=== PATIENT | female | born 1970 | race Caucasian/White ===

== ENCOUNTER 2020-04-12 11:58 | Emergency (ER) | payer MEDICAID ==
[~2020-04-12] VITALS: Ht 165.1 cm; Wt 127.0 kg
[2020-04-12 12:07] VITALS: BP 138/117
[2020-04-12] MEDS ORDERED: PRED10TA PO (12:50)
[2020-04-12] MEDS ORDERED: predniSONE 20 mg tablet PO ONE (12:50)
== END 2020-04-12 13:00 | disposition home or self-care (01) ==
LOC: ER 11:59
DX: L23.9 Allergic contact dermatitis, unspecified cause (principal); F17.200 Nicotine dependence, unspecified, uncomplicated; Z88.6 Allergy status to analgesic agent; Z79.899 Other long term (current) drug therapy
CPT/HCPCS: 99283; J7512

== ENCOUNTER 2021-10-04 14:02 | Emergency (ER) | payer MEDICAID ==
[~2021-10-04] VITALS: Ht 165.1 cm; Wt 109.1 kg
[~2021-10-04 14:02] MED LIST: PRED10TA PO
[2021-10-04] MEDS: ondansetron 4mg rapidly disintigrating tab PO ONE (14:28)
--- NOTE | 2021-10-04 14:46 | NUR ---
Bedside blood glucose 434mg/dl- critical high. notified.
[2021-10-04] MEDS ORDERED: normal saline 1000ml 1,000 ML IV ONE (14:55)
[2021-10-04] MEDS: normal saline 1000ml 1,000 ML IV ONE (15:21)
[2021-10-04 15:22] LABS: BASOPHILS % (AUTO) 0.3 % (0-1); EOSINOPHILS # (AUTO) 0.1 X10'3 (0-0.9); EOSINOPHILS % (AUTO) 0.6 % (0-6); HEMATOCRIT 42.5 % (35.0-45.0); HEMOGLOBIN 14.7 g/dl (12.0-16.0); LYMPHOCYTES # (AUTO) 2.3 X10'3 (1.1-4.8); LYMPHOCYTES % (AUTO) 23.5 % (21-51); MEAN CORPUSCULAR HEMOGLOBIN 29.7 PG (27.0-31.0); MEAN CORPUSCULAR HGB CONC 34.6 g/dL (33.0-36.5); MEAN CORPUSCULAR VOLUME 85.9 FL (78-98); MEAN PLATELET VOLUME 7.8 FL (7.4-10.4); MONOCYTES # (AUTO) 0.6 X10'3 (0-0.9); MONOCYTES % (AUTO) 5.7 % (2-12); NEUTROPHILS # (AUTO) 6.8 X10'3 (1.8-7.7); NEUTROPHILS % (AUTO) 69.9 % (42-75); PLATELET COUNT 356 X10'3 (140-440); RED BLOOD COUNT 4.94 X10'6 (4.20-5.60); RED CELL DISTRIBUTION WIDTH 13.6 % (11.5-14.5); WHITE BLOOD COUNT 9.7 X10'3 (4.5-11.0)
[2021-10-04] MEDS: predniSONE 20 mg tablet PO ONE (15:40)
[2021-10-04] MEDS: ipratropium/albuterol 3ml nebule NEB ONE (15:40)
[2021-10-04 15:43] LABS: ALANINE AMINOTRANSFERASE 15 U/L (12-78); ALBUMIN/GLOBULIN RATIO 0.6 (1.1-1.5); ALKALINE PHOSPHATASE 78 IU/L (46-116); ANION GAP 18 (8-16); ASPARTATE AMINO TRANSFERASE 8 U/L (10-37); BILIRUBIN,TOTAL 0.3 MG/DL (0.1-1.0); BLOOD UREA NITROGEN 21 MG/DL (7-18); BUN/CREATININE RATIO 16.9 (6.6-38.0); CALCIUM 9.5 MG/DL (8.5-10.1); CHLORIDE 100 MMOL/L (99-107); CREATININE 1.24 MG/DL (0.40-0.90); GLUCOSE 418 MG/DL (70-104); POTASSIUM 3.2 MMOL/L (3.5-5.1); SODIUM 140 MMOL/L (135-145); TOTAL PROTEIN 7.7 G/DL (6.4-8.2); eGFR 46 ML/MIN
[2021-10-04 15:47] LABS: CLARITY,URINE SLIGHTLY CLOUDY (Clear); COLOR,URINE YELLOW (Yellow); GLUCOSE, URINE >=1000 mg/dl (Neg); KETONES,URINE NEGATIVE (Neg); LEUKOCYTE ESTERASE ,URINE NEGATIVE (Neg); NITRITES, URINE NEGATIVE (Neg); OCCULT BLOOD,URINE TRACE-INTACT (Neg); PH,URINE 7.5 (4.8-8.0); PROTEIN,URINE NEGATIVE (Neg)
[2021-10-04 15:49] LABS: LIPASE 261 U/L (73-393)
[2021-10-04 15:54] LABS: UA COLLECTION TYPE NON-SPECIFIED
[2021-10-04 15:55] LABS: SQUAMOUS EPITHELIAL CELL,UR MODERATE /LPF (FEW)
[2021-10-04 15:56] LABS: BACTERIA,URINE 1+ /HPF (Neg); RBC,URINE 0-2 /HPF (0-2); WBC,URINE 0-4 /HPF (0-4)
[2021-10-04] MEDS: potassium Cl 10 mEq/100mL bag IV ONE (16:36)
[2021-10-04] MEDS: potassium Cl 20 mEq SR tablet PO ONE (16:36)
[2021-10-04] MEDS: LORazepam 2 mg/ml vial IV ONE (16:49)
--- NOTE | 2021-10-04 17:17 | NUR ---
RT at bedside to draw ABG.
--- NOTE | 2021-10-04 17:29 | NUR ---
Potassium 10meq still infusing- pt bending arm when moving around or up to commode and pump starts alarming.
--- NOTE | 2021-10-04 17:31 | NUR ---
Pt up to bedside commode. assisting at bedside.
[2021-10-04 17:34] LABS: ABG OXYGEN SATURATION 98.1 % (94-97); ABG PCO2 (T) 20.8 mmHg (32.0-45.0); ABG PO2 (T) 103.9 mmHg (75.0-100.0); ALLEN'S TEST POSITIVE; FCOHb 0.3 % (0.0-3.9); FLOW 2 L/min; FMetHb 0.2 % (0.0-1.5); FO2Hb 97.6 % (94-97); TOTAL HEMOGLOBIN 14.4 G/dl (12.0-16.0)
[2021-10-04] MEDS ORDERED: ONDA4TAB12 PO (17:47)
[2021-10-04] MEDS: diphenhydrAMINE 50 mg/ml inj IV ONE (17:57)
[2021-10-04] MEDS: proCHLORperazine 10 MG/2 ml inj IV ONE (17:57)
[2021-10-04 18:27] VITALS: BP 157/80
== END 2021-10-04 18:58 | disposition home or self-care (01) ==
LOC: ER 14:03
DX: B34.9 Viral infection, unspecified (principal); E11.65 Type 2 diabetes mellitus with hyperglycemia; R73.9 Hyperglycemia, unspecified; E87.6 Hypokalemia; I10 Essential (primary) hypertension; Z88.6 Allergy status to analgesic agent; Z79.899 Other long term (current) drug therapy; Z20.822 Contact with and (suspected) exposure to COVID-19
CPT/HCPCS: 36415; 36600; 71045; 80053; 81001; 82803; 82948; 83690; 83880; 85018; 85025; 87502; 87503; 87635; 93005; 94640; 96361; 96374; 96375; 99285; C9803; J0780; J1200; J2060; J3480; J7030; J7512; 94760

== ENCOUNTER 2022-02-19 14:42 | Inpatient (IN) | payer MEDICAID ==
[~2022-02-19] VITALS: Ht 165.1 cm; Wt 107.8 kg
[~2022-02-19 14:42] MED LIST changes: +ONDA4TAB12 PO
[2022-02-19 15:55] LABS: BASOPHILS # (AUTO) 0.1 X10'3 (0-0.2); BASOPHILS % (AUTO) 0.7 % (0-1); EOSINOPHILS % (AUTO) 0 % (0-6); HEMATOCRIT 49.2 % (35.0-45.0); HEMOGLOBIN 16.7 g/dl (12.0-16.0); LYMPHOCYTES # (AUTO) 4.4 X10'3 (1.1-4.8); LYMPHOCYTES % (AUTO) 26.1 % (21-51); MEAN CORPUSCULAR VOLUME 88.4 FL (78-98); MEAN PLATELET VOLUME 7.6 FL (7.4-10.4); MONOCYTES # (AUTO) 0.8 X10'3 (0-0.9); MONOCYTES % (AUTO) 4.8 % (2-12); NEUTROPHILS # (AUTO) 11.6 X10'3 (1.8-7.7); NEUTROPHILS % (AUTO) 68.4 % (42-75); PLATELET COUNT 441 X10'3 (140-440); RED BLOOD COUNT 5.57 X10'6 (4.20-5.60); RED CELL DISTRIBUTION WIDTH 14.6 % (11.5-14.5); WHITE BLOOD COUNT 16.9 X10'3 (4.5-11.0)
[2022-02-19 16:04] LABS: ALANINE AMINOTRANSFERASE 17 U/L (12-78); ALBUMIN 3.8 G/DL (3.4-5.0); ALBUMIN/GLOBULIN RATIO 0.8 (1.1-1.5); ALKALINE PHOSPHATASE 55 IU/L (46-116); ANION GAP 15 (8-16); ASPARTATE AMINO TRANSFERASE 14 U/L (10-37); BILIRUBIN,TOTAL 0.7 MG/DL (0.1-1.0); BLOOD UREA NITROGEN 21 MG/DL (7-18); BUN/CREATININE RATIO 15.1 (6.6-38.0); CALCIUM 9.5 MG/DL (8.5-10.1); CHLORIDE 100 MMOL/L (99-107); CREATININE 1.39 MG/DL (0.40-0.90); GLUCOSE 180 MG/DL (70-104); LIPASE 137 U/L (73-393); SODIUM 140 MMOL/L (135-145); TOTAL CARBON DIOXIDE 24.7 MMOL/L (24-32); TOTAL PROTEIN 8.4 G/DL (6.4-8.2); eGFR 40 ML/MIN
[2022-02-19 16:08] LABS: POTASSIUM 2.9 MMOL/L (3.5-5.1)
--- NOTE | 2022-02-19 16:46 | NUR ---
patient reporting chest pain at this time
--- NOTE | 2022-02-19 17:48 | NUR ---
ER MD advised of patient desating and HR dropping intermittently. patient is still waiting to be seen, repeat EKG ordered
--- NOTE | 2022-02-19 18:55 | NUR ---
CHANGE OF SHIFT. PRIOR RN MENTIONED PT COMPLAINED OF CP. PT AFFIRMED CP. I SPOKE TO DR VICKERS AND RECIEVED VERBAL OK TO ADD TROPONIN LABS. ORDERS PLACED.
--- NOTE | 2022-02-19 19:05 | NUR ---
DR VICKERS IN ROOM EXAMINING PT. AT BEDSIDE.
[2022-02-19] MEDS ORDERED: albuterol 2.5 MG/3 ML nebule NEB ONE (19:10)
[2022-02-19] MEDS ORDERED: morphine 4 MG/ML inj SYRINge IV ONE (19:10)
[2022-02-19] MEDS ORDERED: ondansetron/PF 4mg/2ml inj IV ONE (19:10)
[2022-02-19] MEDS ORDERED: famotidine/PF 10 mg/ml inj IV ONE (19:10)
[2022-02-19] MEDS ORDERED: ringers solution, lacted 1,000 ML IV ONE (19:15)
[2022-02-19] MEDS ORDERED: potassium Cl 10 mEq/100mL bag IV ONE (19:15)
[2022-02-19] MEDS ORDERED: methylPREDNISolone sod succ 125mg/2ml vial IV ONE (19:20)
--- NOTE | 2022-02-19 19:36 | NUR ---
PT IN CT
[2022-02-19 19:39] LABS: URINE HCG NEGATIVE (NEG)
[2022-02-19 20:09] LABS: CLARITY,URINE SLIGHTLY CLOUDY (Clear); GLUCOSE, URINE NEGATIVE (Neg); KETONES,URINE TRACE mg/dl (Neg); LEUKOCYTE ESTERASE ,URINE SMALL (Neg); NITRITES, URINE POSITIVE (Neg); OCCULT BLOOD,URINE NEGATIVE (Neg); PH,URINE 8.5 (4.8-8.0); PROTEIN,URINE 100 mg/dl (Neg)
[2022-02-19 20:16] LABS: COLOR,URINE AMBER (Yellow); UA COLLECTION TYPE OTHER
[2022-02-19 20:20] LABS: BACTERIA,URINE 4+ /HPF (Neg); MUCUS STRANDS NONE SEEN /LPF (Neg); RBC,URINE NONE SEEN /HPF (0-2); SQUAMOUS EPITHELIAL CELL,UR MANY /LPF (FEW); WBC,URINE 30-50 /HPF (0-4)
[2022-02-19] MEDS ORDERED: CefTRIAXone/D5W-Rocephin 1gm 50 ML IV ONE (20:30)
--- NOTE | 2022-02-19 20:30 | NUR ---
PT REPORTS NOT MUCH IMPROVEMENT OVERALL. SPOKE TO DR VICKERS CONCERNING PT'S URINE RESULTS. HE WILL PUT IN ORDERS FOR ANTIBIOTICS.
[2022-02-19] MEDS ORDERED: insulin Lispro (HumaLOG) vial - multi-dose SQ SCH (22:20)
[2022-02-19] MEDS ORDERED: dextrose 50%-water 50ml dispensing syringe IV PRN ×2 (22:20)
[2022-02-19] MEDS ORDERED: DEXTROSE 15 GM of carb/4 tabs (each vial/BOTTLE has 4 tablets) PO PRN ×2 (22:20)
[2022-02-19] MEDS ORDERED: MESSAGE TO PHARMACY PO ONE (22:20)
[2022-02-19] MEDS ORDERED: glucagon, human recombinant 1mg kit SUBCUT PRN (22:20)
[2022-02-19 22:34] LABS: HEMOGLOBIN A1C 5.9 % (4.5-6.2)
--- NOTE | 2022-02-19 22:48 | NUR ---
PT SLEEPING ON HER SIDE.
[2022-02-19 22:53] LABS: URINE AMPHETAMINE SCREEN NEGATIVE (Neg); URINE BARBITUATE SCREEN NEGATIVE (Neg); URINE BENZODIAZEPINES SCREEN NEGATIVE (Neg); URINE CANNABINOID SCREEN POSITIVE (Neg); URINE COCAINE SCREEN NEGATIVE (Neg); URINE METHADONE SCREEN NEGATIVE (Neg); URINE OPIATE SCREEN POSITIVE (Neg); URINE PHENCYCLIDINE SCREEN NEGATIVE (Neg)
--- NOTE | 2022-02-19 23:10 | NUR ---
PT ON A [facility] GOWN. CALL RIGHT WITHIN REACH.
[2022-02-20] MEDS ORDERED: bisacodyl 10mg suppository rectal RC PRN (00:35)
[2022-02-20] MEDS ORDERED: acetaminophen 325mg tablet PO PRN ×2 (00:35)
[2022-02-20] MEDS ORDERED: metoclopramide 5 mg/ml inj IV PRN (00:35)
[2022-02-20] MEDS ORDERED: ondansetron/PF 4mg/2ml inj IV PRN (00:35)
[2022-02-20] MEDS ORDERED: HYDROmorphone inj. 0.5 MG/0.5 ML DISP.SYRIN IV PRN (00:35)
[2022-02-20] MEDS ORDERED: mag hydrox/Alum hydrox/simeth 30ml oral suspension PO PRN (00:35)
[2022-02-20] MEDS ORDERED: morphine 2 MG/ML inj. syringe IV PRN ×2 (00:35)
[2022-02-20] MEDS ORDERED: magnesium hydroxide 30ml (MOM) UD suspension PO PRN (00:35)
[2022-02-20] MEDS ORDERED: acetaminophen 650mg rectal suppository RC PRN (00:35)
[2022-02-20] MEDS ORDERED: HYDROcodone/acetaminophen 10/325mg tab PO PRN (00:35)
[2022-02-20] MEDS ORDERED: diphenhydrAMINE 50 mg/ml inj IV PRN (00:35)
[2022-02-20] MEDS ORDERED: diphenhydrAMINE 25mg capsule PO PRN (00:35)
[2022-02-20] MEDS ORDERED: potassium Cl 20 mEq SR tablet PO PRN (00:50)
[2022-02-20] MEDS ORDERED: LORazepam 2 mg/ml vial IV PRN (00:50)
[2022-02-20] MEDS ORDERED: potassium CL 10mEq/100ml bag 100 ML IV PRN ×2 (01:00)
[2022-02-20] MEDS: potassium Cl 20mEq in NS 1,000 ML IV SCH ×3 (02:20→21:20)
[2022-02-20] MEDS ORDERED: TOPI50TA24 PO (02:22)
[2022-02-20] MEDS ORDERED: PIOG15TA8 PO (02:23)
[2022-02-20] MEDS ORDERED: METF-438 PO (02:24)
--- NOTE | 2022-02-20 02:30 | NUR ---
Patient in room PCU 3016. I have received report from Ceci COVARRUBIAS RN and had the opportunity to ask questions and assume patient care.
--- NOTE | 2022-02-20 02:50 | NUR ---
Pt arrived fr/ED via [facility]redis [facility] w/standby assist to bed. Oriented to room, surroundings, and POC. Tele monitor applied, NSR @ 60/min. noted.
[2022-02-20 03:00] VITALS: BP 109/71
[2022-02-20 03:31] LABS: APTT 26 SECONDS (22-32); D-DIMER 0.27 MG/L FEU (0-0.50)
[2022-02-20 03:40] LABS: CREATINE KINASE 140 U/L (26-192); ETHANOL < 0.010 GM/DL (0.0-0.010); MAGNESIUM 1.6 MG/DL (1.5-2.4)
[2022-02-20 06:00] VITALS: BP 110/67
--- NOTE | 2022-02-20 06:50 | NUR ---
Patient in room PCU 3016. I have received report from MAYTE LEDESMA, and had the opportunity to ask questions and assume patient care.
[2022-02-20] MEDS: ondansetron 4mg rapidly disintigrating tab PO PRN ×2 (07:14→15:55)
--- NOTE | 2022-02-20 07:21 | NUR ---
Problems reprioritized. Patient report given, questions answered & plan of care reviewed with Kassi HU.
[2022-02-20 07:42] LABS: ALANINE AMINOTRANSFERASE 14 U/L (12-78); ALBUMIN 3.3 G/DL (3.4-5.0); ALBUMIN/GLOBULIN RATIO 0.9 (1.1-1.5); ALKALINE PHOSPHATASE 47 IU/L (46-116); ANION GAP 12 (8-16); ASPARTATE AMINO TRANSFERASE 17 U/L (10-37); BILIRUBIN,TOTAL 0.5 MG/DL (0.1-1.0); BLOOD UREA NITROGEN 25 MG/DL (7-18); CALCIUM 8.5 MG/DL (8.5-10.1); CHLORIDE 105 MMOL/L (99-107); CREATININE 1.19 MG/DL (0.40-0.90); GLUCOSE 179 MG/DL (70-104); SODIUM 141 MMOL/L (135-145); TOTAL CARBON DIOXIDE 24.3 MMOL/L (24-32); eGFR 48 ML/MIN
[2022-02-20 07:44] LABS: POTASSIUM 2.6 MMOL/L (3.5-5.1)
--- NOTE | 2022-02-20 07:48 | NUR ---
PAGE SENT PAGER ID: [phone] MESSAGE: [id number], SERGEY PARKER, CRITICAL LAB - K 2.6 THANK YOU, ADRIAN [phone]
[2022-02-20] MEDS: K and/or MAG REPLACEMENT MC SCH ×2 (08:00→20:00)
[2022-02-20] MEDS: potassium Cl 20 mEq SR tablet PO PRN ×2 (08:26→20:39)
[2022-02-20] MEDS: docusate sod 100mg capsule PO SCH ×2 (08:26→20:00)
[2022-02-20] MEDS: heparin, porcine 5000 units/ml vial SQ SCH ×2 (08:27→20:35)
[2022-02-20] MEDS: pantoprazole 40MG/NS 100ML BAG 100 ML IV SCH ×2 (08:36→20:35)
[2022-02-20] MEDS: HYDROcodone/acetaminophen 5mg/325mg tablet PO PRN ×2 (10:24→15:55)
[2022-02-20 11:00] VITALS: BP 107/66
--- NOTE | 2022-02-20 13:52 | NUR ---
PAGE SENT PAGER ID: [phone] MESSAGE: [id number], SERGEY PARKER, PT C/O JIA PRADHAN. TAKES EXECEDRIN PLUS AT HOME - [facility]CO HELPFUL, IMITREX? PT ALSO HAS DIAGNOSIS OF BIPOLAR AND TAKES GEODON AND TOPAMAX. THANK YOU, ADRIAN, X [phone]
[2022-02-20 15:00] VITALS: BP 111/86
[2022-02-20 18:00] VITALS: BP 104/57
--- NOTE | 2022-02-20 18:23 | NUR ---
Problems reprioritized. Patient report given, questions answered & plan of care reviewed with MAYTE REYES.
[2022-02-20] MEDS ORDERED: HALO2ORA3 PO (18:50)
[2022-02-20] MEDS ORDERED: MELO-102 PO (18:50)
[2022-02-20] MEDS ORDERED: ZIPR80CA10 PO (18:50)
[2022-02-20] MEDS ORDERED: TRAZ-256 PO (18:50)
[2022-02-20] MEDS ORDERED: ZIPR40CA14 PO (18:50)
[2022-02-20] MEDS ORDERED: ASPI-144 PO (18:50)
[2022-02-20] MEDS ORDERED: DIVA500T9 PO (18:50)
[2022-02-20] MEDS ORDERED: ERGO500056 PO (18:50)
--- NOTE | 2022-02-20 19:00 | NUR ---
Patient in room PCU 3016. I have received report from Kassi and had the opportunity to ask questions and assume patient care.
[2022-02-20] MEDS ORDERED: insulin glargine (Lantus) pen - multi-dose SQ SCH (21:00)
[2022-02-20] MEDS ORDERED: temazepam 15mg capsule PO PRN (21:00)
[2022-02-20] MEDS ORDERED: CefTRIAXone/D5W-Rocephin 1gm 50 ML IV SCH (21:00)
[2022-02-20 22:00] VITALS: BP 113/68
[2022-02-21] MEDS: potassium Cl 20 mEq SR tablet PO PRN (00:41)
[2022-02-21 02:00] VITALS: BP 108/65
[2022-02-21] MEDS: potassium Cl 20mEq in NS 1,000 ML IV SCH ×2 (06:35→11:30)
--- NOTE | 2022-02-21 06:57 | NUR ---
Patient in room PCU 3016. I have received report from Paco HU and had the opportunity to ask questions and assume patient care.
[2022-02-21 07:05] VITALS: BP 122/59
--- NOTE | 2022-02-21 07:10 | NUR ---
Problems reprioritized. Patient report given, questions answered & plan of care reviewed with Raúl.
[2022-02-21 07:24] LABS: BASOPHILS % (AUTO) 0.7 % (0-1); EOSINOPHILS % (AUTO) 0.3 % (0-6); HEMATOCRIT 40.1 % (35.0-45.0); HEMOGLOBIN 13.6 g/dl (12.0-16.0); LYMPHOCYTES # (AUTO) 2.8 X10'3 (1.1-4.8); LYMPHOCYTES % (AUTO) 42.2 % (21-51); MEAN CORPUSCULAR HEMOGLOBIN 30.4 PG (27.0-31.0); MEAN CORPUSCULAR HGB CONC 33.9 g/dL (33.0-36.5); MEAN CORPUSCULAR VOLUME 89.5 FL (78-98); MEAN PLATELET VOLUME 8.1 FL (7.4-10.4); MONOCYTES # (AUTO) 0.4 X10'3 (0-0.9); MONOCYTES % (AUTO) 5.7 % (2-12); NEUTROPHILS # (AUTO) 3.4 X10'3 (1.8-7.7); NEUTROPHILS % (AUTO) 51.1 % (42-75); PLATELET COUNT 233 X10'3 (140-440); RED BLOOD COUNT 4.48 X10'6 (4.20-5.60); RED CELL DISTRIBUTION WIDTH 14.3 % (11.5-14.5); WHITE BLOOD COUNT 6.7 X10'3 (4.5-11.0)
[2022-02-21 07:47] LABS: ALANINE AMINOTRANSFERASE 11 U/L (12-78); ALBUMIN 2.8 G/DL (3.4-5.0); ALBUMIN/GLOBULIN RATIO 0.8 (1.1-1.5); ALKALINE PHOSPHATASE 42 IU/L (46-116); ANION GAP 9 (8-16); ASPARTATE AMINO TRANSFERASE 19 U/L (10-37); BILIRUBIN,TOTAL 0.4 MG/DL (0.1-1.0); BLOOD UREA NITROGEN 16 MG/DL (7-18); BUN/CREATININE RATIO 16.7 (6.6-38.0); CHLORIDE 115 MMOL/L (99-107); CHOL/HDL RATIO 5.9 (0.00-4.99); CHOLESTEROL 165 MG/DL (0-200); CREATININE 0.96 MG/DL (0.40-0.90); GLUCOSE 136 MG/DL (70-104); HDL CHOLESTEROL 28 MG/DL (35-60); LDL CHOLESTEROL 91 MG/DL (50-100); POTASSIUM 4.1 MMOL/L (3.5-5.1); SODIUM 144 MMOL/L (135-145); TOTAL CARBON DIOXIDE 20.4 MMOL/L (24-32); TOTAL PROTEIN 6.1 G/DL (6.4-8.2); TRIGLYCERIDES 248 MG/DL (20-135); eGFR 62 ML/MIN
[2022-02-21] MEDS: K and/or MAG REPLACEMENT MC SCH (08:00)
[2022-02-21] MEDS: docusate sod 100mg capsule PO SCH (08:16)
[2022-02-21] MEDS: pantoprazole 40MG/NS 100ML BAG 100 ML IV SCH (08:16)
[2022-02-21] MEDS: heparin, porcine 5000 units/ml vial SQ SCH (08:18)
[2022-02-21] MEDS ORDERED: CAFFEINE PO PRN (10:35)
[2022-02-21] MEDS ORDERED: ACETAMINOPHEN PO PRN (10:35)
[2022-02-21] MEDS ORDERED: Meloxicam 15 MG TAB PO PRN (10:35)
[2022-02-21] MEDS ORDERED: ASPIRIN PO PRN (10:35)
[2022-02-21] MEDS ORDERED: ergocalciferol (vit D2) capsule 50,000 UNITS (1,250mcg) CAPSULE PO SCH (10:35)
[2022-02-21] MEDS ORDERED: ONDA4TAB12 PO (14:26)
[2022-02-21] MEDS ORDERED: LEVO500T90 PO (14:26)
--- NOTE | 2022-02-21 15:57 | NUR ---
Patient discharged home with all of her belongings at this time. Patient was educated on discharge instructions and new medications. Patient expressed verbal understanding of discharge teaching. Patient IV taken out at time of discharge canula was whole and intact upon inspection. Patient in room during discharge teaching.
[2022-02-21] MEDS ORDERED: topiramate 100mg tablet PO SCH (20:00)
[2022-02-21] MEDS ORDERED: metFORMIN 500mg tablet PO SCH (20:00)
[2022-02-21] MEDS ORDERED: traZODone 50mg tablet PO SCH (21:00)
[2022-02-21] MEDS ORDERED: ziprasidone 20mg capsule PO SCH (21:00)
[2022-02-21] MEDS ORDERED: haloperidol 10mg/5ml UD oral solution PO SCH (21:00)
[2022-02-21] MEDS ORDERED: divalproex sod 250mg ER (24-hour) tablet PO SCH (21:00)
[2022-02-22] MEDS ORDERED: ziprasidone 20mg capsule PO SCH (08:00)
== END 2022-02-21 15:59 | disposition home or self-care (01) | DRG 469 ==
LOC: ER 14:43 → ED HOLD 02-20 00:45 → PCU 3S 02-20 03:15
PROVIDERS: ADMIT Family Medicine; ATTEND Internal Medicine
DX: N17.9 Acute kidney failure, unspecified (principal); E11.22 Type 2 diabetes mellitus with diabetic chronic kidney disease; I13.0 Hypertensive heart and chronic kidney disease with heart failure and stage 1 through stage 4 chronic kidney disease, or unspecified chronic kidney disease; I50.32 Chronic diastolic (congestive) heart failure; J45.901 Unspecified asthma with (acute) exacerbation; E86.0 Dehydration; R82.4 Acetonuria; E87.6 Hypokalemia; F12.129 Cannabis abuse with intoxication, unspecified; G47.33 Obstructive sleep apnea (adult) (pediatric); N18.9 Chronic kidney disease, unspecified; N39.0 Urinary tract infection, site not specified; Z87.442 Personal history of urinary calculi; Z87.891 Personal history of nicotine dependence; Z88.8 Allergy status to other drugs, medicaments and biological substances; Z79.899 Other long term (current) drug therapy; Z71.51 Drug abuse counseling and surveillance of drug abuser
CPT/HCPCS: 36415; 71045; 74176; 80053; 80061; 80305; 80320; 81001; 81025; 82550; 82800; 82948; 83036; 83605; 83690; 83735; 83880; 84100; 84443; 84484; 85025; 85379; 85610; 85730; 87040; 87081; 93005; 93306; 94640; 94760; 99285; C9113; G0378; J0696; J1644; J1815; J2270; J2405; J2930; J3480; J3490; J7030; J7120

== ENCOUNTER 2023-06-15 11:34 | Inpatient (IN) | payer MEDICAID ==
[~2023-06-15] VITALS: Ht 165.1 cm; Wt 118.8 kg
[~2023-06-15 11:34] MED LIST changes: +ASPI-144 PO; +DIVA500T9 PO; +ERGO500056 PO; +HALO2ORA3 PO; +MELO-102 PO; +METF-438 PO; -PRED10TA PO; +TOPI-253 PO; +TRAZ-256 PO; +ZIPR40CA14 PO; +ZIPR80CA10 PO
[2023-06-15] MEDS ORDERED: ZIPR40CA2 PO (11:57)
[2023-06-15] MEDS ORDERED: ZIPR80CA2 PO (11:57)
[2023-06-15 12:25] LABS: BASOPHILS # (AUTO) 0.1 X10'3 (0-0.2); EOSINOPHILS # (AUTO) 0.1 X10'3 (0-0.9); EOSINOPHILS % (AUTO) 1.8 % (0-6); HEMATOCRIT 45.6 % (35.0-45.0); HEMOGLOBIN 15.3 g/dl (12.0-16.0); LYMPHOCYTES # (AUTO) 2.7 X10'3 (1.1-4.8); LYMPHOCYTES % (AUTO) 34.2 % (21-51); MEAN CORPUSCULAR HGB CONC 33.6 g/dL (33.0-36.5); MEAN CORPUSCULAR VOLUME 92.1 FL (78-98); MEAN PLATELET VOLUME 7.5 FL (7.4-10.4); MONOCYTES # (AUTO) 0.6 X10'3 (0-0.9); MONOCYTES % (AUTO) 7.7 % (2-12); NEUTROPHILS # (AUTO) 4.3 X10'3 (1.8-7.7); NEUTROPHILS % (AUTO) 55.3 % (42-75); PLATELET COUNT 250 X10'3 (140-440); RED BLOOD COUNT 4.95 X10'6 (4.20-5.60); RED CELL DISTRIBUTION WIDTH 13.4 % (11.5-14.5); WHITE BLOOD COUNT 7.9 X10'3 (4.5-11.0)
[2023-06-15 12:36] LABS: ALANINE AMINOTRANSFERASE 14 U/L (12-78); ALBUMIN 3.3 G/DL (3.4-5.0); ALBUMIN/GLOBULIN RATIO 0.8 (1.1-1.5); ALKALINE PHOSPHATASE 66 IU/L (46-116); ANION GAP 5 (8-16); ASPARTATE AMINO TRANSFERASE 9 U/L (10-37); BILIRUBIN,TOTAL 0.3 MG/DL (0.1-1.0); BLOOD UREA NITROGEN 19 MG/DL (7-18); BUN/CREATININE RATIO 22.1 (10.0-20.0); CHLORIDE 100 MMOL/L (99-107); CREATININE 0.86 MG/DL (0.40-0.90); GLUCOSE 247 MG/DL (70-104); POTASSIUM 4.3 MMOL/L (3.5-5.1); SODIUM 135 MMOL/L (135-145); TOTAL CARBON DIOXIDE 29.8 MMOL/L (24-32); TOTAL PROTEIN 7.4 G/DL (6.4-8.2); eCRCL 70 ML/MIN; eGFR 70 ML/MIN
[2023-06-15 12:47] LABS: ETHANOL < 10 MG/DL (<10)
[2023-06-15] MEDS ORDERED: PRAZ2CAP2 PO (12:58)
[2023-06-15] MEDS ORDERED: VENL37.586 PO (12:58)
[2023-06-15] MEDS ORDERED: VENL150C4 PO ×2 (12:58→14:24)
[2023-06-15 13:46] LABS: URINE HCG NEGATIVE (NEG)
[2023-06-15 13:55] LABS: URINE AMPHETAMINE SCREEN NEGATIVE (Neg); URINE BARBITUATE SCREEN NEGATIVE (Neg); URINE BENZODIAZEPINES SCREEN NEGATIVE (Neg); URINE CANNABINOID SCREEN POSITIVE (Neg); URINE COCAINE SCREEN NEGATIVE (Neg); URINE METHADONE SCREEN NEGATIVE (Neg); URINE OPIATE SCREEN NEGATIVE (Neg); URINE PHENCYCLIDINE SCREEN NEGATIVE (Neg)
[2023-06-15 14:06] LABS: BILIRUBIN,URINE NEGATIVE (Neg); CLARITY,URINE SLIGHTLY CLOUDY (Clear); COLOR,URINE YELLOW (Yellow); GLUCOSE, URINE 250 mg/dl (Neg); KETONES,URINE NEGATIVE (Neg); LEUKOCYTE ESTERASE ,URINE NEGATIVE (Neg); NITRITES, URINE NEGATIVE (Neg); OCCULT BLOOD,URINE TRACE-INTACT (Neg); PH,URINE 6.5 (4.8-8.0); PROTEIN,URINE NEGATIVE (Neg); UROBILINOGEN,URINE 0.2 E.U/dL (0.2-1.0)
[2023-06-15 14:10] LABS: UA COLLECTION TYPE FOLEY CATH
[2023-06-15] MEDS ORDERED: MONT-40 PO (14:10)
[2023-06-15] MEDS ORDERED: TOP100T PO (14:10)
[2023-06-15] MEDS ORDERED: PIOG15TA8 PO (14:10)
[2023-06-15] MEDS ORDERED: ROSU20TA2 PO (14:10)
[2023-06-15] MEDS ORDERED: FAMO20TA8 PO (14:10)
[2023-06-15 14:16] LABS: SQUAMOUS EPITHELIAL CELL,UR MANY /LPF (FEW)
[2023-06-15 14:17] LABS: TRANSITIONAL EPI CELLS,URINE FEW /HPF
[2023-06-15 14:18] LABS: BACTERIA,URINE FEW /HPF (Neg); WBC,URINE 0-4 /HPF (0-4)
[2023-06-15 22:30] VITALS: BP 138/91; PULSE 94; RESP 16; O2SAT 94
[2023-06-15] MEDS ORDERED: CAFFEINE PO PRN (23:15)
[2023-06-15] MEDS ORDERED: acetaminophen 325mg tablet PO PRN (23:15)
[2023-06-15] MEDS ORDERED: magnesium hydroxide 30ml (MOM) UD suspension PO PRN (23:15)
[2023-06-15] MEDS ORDERED: ASPIRIN PO PRN (23:15)
[2023-06-15] MEDS ORDERED: loperamide 2mg capsule PO PRN (23:15)
[2023-06-15] MEDS ORDERED: NICOTINE POLACRILEX 2 MG LOZENGE BC PRN (23:15)
[2023-06-15] MEDS ORDERED: ACETAMINOPHEN PO PRN (23:15)
[2023-06-15] MEDS ORDERED: mag hydrox/Alum hydrox/simeth 30ml oral suspension PO PRN (23:15)
[2023-06-15] MEDS ORDERED: MELOXICAM 7.5 MG TABLET PO PRN (23:27)
[2023-06-15] MEDS: divalproex sod 250mg ER (24-hour) tablet PO SCH (23:53)
[2023-06-15] MEDS: acetaminophen 325mg tablet PO PRN (23:54)
[2023-06-15] MEDS: metFORMIN 500mg tablet PO SCH (23:54)
[2023-06-16] MEDS: topiramate 25mg tablet PO SCH ×2 (00:23→08:12)
[2023-06-16] MEDS: ziprasidone 20mg capsule PO SCH ×2 (00:24→20:54)
[2023-06-16 08:00] VITALS: BP 126/63; PULSE 89; RESP 18; TEMP 98.7; O2SAT 93
[2023-06-16] MEDS ORDERED: topiramate 100mg tablet PO SCH (08:00)
[2023-06-16] MEDS: metFORMIN 500mg tablet PO SCH ×2 (08:11→20:54)
[2023-06-16] MEDS: nicotine 21mg patch - 24 hr TD SCH (08:12)
[2023-06-16 09:11] LABS: HEMOGLOBIN A1C 8.5 % (4.5-6.2)
[2023-06-16 09:43] LABS: CHOL/HDL RATIO 4.6 (0.00-4.99); CHOLESTEROL 164 MG/DL (0-200); HDL CHOLESTEROL 36 MG/DL (35-60); LDL CHOLESTEROL 83 MG/DL (50-100); TRIGLYCERIDES 326 MG/DL (20-135)
[2023-06-16] MEDS ORDERED: FLU VACC QS2023-24(6MOS UP)/PF 60 MCG/0.5 ML SYRINGE IM ONE (10:00)
[2023-06-16 19:00] VITALS: BP 131/81; PULSE 78; RESP 16; RESP 17; TEMP 97.9; O2SAT 95; O2SAT 97
[2023-06-16] MEDS: divalproex sod 250mg ER (24-hour) tablet PO SCH (20:55)
[2023-06-16] MEDS: topiramate 100mg tablet PO SCH (20:55)
[2023-06-17] MEDS ORDERED: montelukast 10mg tablet PO PRN (00:15)
[2023-06-17 08:00] VITALS: BP 118/84; PULSE 96; RESP 14; TEMP 97.3; O2SAT 99
[2023-06-17] MEDS: linagliptin 5mg tablet PO SCH (08:34)
[2023-06-17] MEDS: metFORMIN 500mg tablet PO SCH ×2 (08:34→20:34)
[2023-06-17] MEDS: famotidine 20mg tablet PO SCH (08:34)
[2023-06-17] MEDS: topiramate 100mg tablet PO SCH ×2 (08:34→20:37)
[2023-06-17] MEDS: pioglitazone 15mg tablet PO SCH (08:36)
[2023-06-17] MEDS: nicotine 21mg patch - 24 hr TD SCH (08:36)
[2023-06-17] MEDS: LIDOcaine 5% patch TP SCH (09:11)
[2023-06-17] MEDS ORDERED: hydrOXYzine 25 MG tablet PO PRN (11:55)
[2023-06-17] MEDS ORDERED: LORazepam 0.5 MG tablet PO PRN (11:55)
[2023-06-17] MEDS: acetaminophen 325mg tablet PO PRN (18:45)
[2023-06-17 19:00] VITALS: BP 113/90; PULSE 83; RESP 18; TEMP 97.3; O2SAT 98
[2023-06-17] MEDS: prazosin 1mg capsule PO SCH (20:33)
[2023-06-17] MEDS: divalproex sod 250mg ER (24-hour) tablet PO SCH (20:34)
[2023-06-17] MEDS: traZODone 50mg tablet PO SCH (20:34)
[2023-06-17] MEDS: ziprasidone 20mg capsule PO SCH (20:35)
[2023-06-17] MEDS: haloperidol 10mg/5ml UD oral solution PO SCH (20:36)
[2023-06-17] MEDS: ROSUVASTATIN CALCIUM 5 MG TABLET PO SCH (20:38)
[2023-06-18] MEDS: acetaminophen 325mg tablet PO PRN ×2 (04:54→20:10)
[2023-06-18] MEDS: topiramate 100mg tablet PO SCH ×2 (07:28→20:11)
[2023-06-18] MEDS: ziprasidone 20mg capsule PO SCH ×2 (07:29→20:09)
[2023-06-18] MEDS: linagliptin 5mg tablet PO SCH (07:30)
[2023-06-18] MEDS: famotidine 20mg tablet PO SCH (07:30)
[2023-06-18] MEDS: pioglitazone 15mg tablet PO SCH (07:30)
[2023-06-18] MEDS: metFORMIN 500mg tablet PO SCH ×2 (07:30→20:10)
[2023-06-18] MEDS: venlafaxine XR 75mg capsule (Q24H) PO SCH (07:30)
[2023-06-18] MEDS: LIDOcaine 5% patch TP SCH (07:31)
[2023-06-18] MEDS: nicotine 21mg patch - 24 hr TD SCH ×2 (07:55→09:37)
[2023-06-18 08:00] VITALS: BP 91/62; PULSE 113; RESP 16; TEMP 96; O2SAT 95
[2023-06-18] MEDS ORDERED: tizanidine 4mg tablet PO PRN (11:10)
[2023-06-18] MEDS: docusate sod 100mg capsule PO SCH ×2 (11:50→20:08)
[2023-06-18 19:00] VITALS: RESP 18; O2SAT 97
[2023-06-18 20:00] VITALS: BP 117/67; PULSE 84; RESP 18; TEMP 98.3; O2SAT 97
[2023-06-18] MEDS: traZODone 50mg tablet PO SCH (20:09)
[2023-06-18] MEDS: divalproex sod 250mg ER (24-hour) tablet PO SCH (20:09)
[2023-06-18] MEDS: prazosin 1mg capsule PO SCH (20:09)
[2023-06-18] MEDS: ROSUVASTATIN CALCIUM 5 MG TABLET PO SCH (20:10)
[2023-06-18] MEDS: haloperidol 10mg/5ml UD oral solution PO SCH (20:11)
[2023-06-19 07:00] VITALS: RESP 16; O2SAT 97
[2023-06-19 08:00] VITALS: BP 115/73; PULSE 86; RESP 16; TEMP 97.8; O2SAT 97
[2023-06-19] MEDS ORDERED: pioglitazone 15mg tablet PO SCH (08:00)
[2023-06-19] MEDS: docusate sod 100mg capsule PO SCH (08:28)
[2023-06-19] MEDS: famotidine 20mg tablet PO SCH (08:28)
[2023-06-19] MEDS: metFORMIN 500mg tablet PO SCH (08:28)
[2023-06-19] MEDS: venlafaxine XR 75mg capsule (Q24H) PO SCH (08:28)
[2023-06-19] MEDS: linagliptin 5mg tablet PO SCH (08:28)
[2023-06-19] MEDS: ziprasidone 20mg capsule PO SCH (08:29)
[2023-06-19] MEDS: topiramate 100mg tablet PO SCH (08:29)
[2023-06-19] MEDS: LIDOcaine 5% patch TP SCH (08:30)
[2023-06-19] MEDS: nicotine 21mg patch - 24 hr TD SCH (08:30)
[2023-06-19] MEDS ORDERED: NICO-687 TD (09:43)
[2023-06-19] MEDS ORDERED: TRAZ-256 PO (09:43)
[2023-06-19] MEDS ORDERED: LINA5TAB4 PO (09:43)
[2023-06-19] MEDS ORDERED: HYDR-3686 PO (09:43)
[2023-06-19] MEDS ORDERED: VENL75TA90 PO (09:45)
== END 2023-06-19 11:02 | disposition home or self-care (01) | DRG 751 ==
LOC: ER 11:35 → ED HOLD 18:00 → UNDOADMIN 18:00 → ADULT MH 18:00
PROVIDERS: ADMIT Psychiatry & Neurology Psychiatry; ATTEND Psychiatry & Neurology Psychiatry
PROC: GZHZZZZ Group Psychotherapy (ICD-10-PCS; principal; 2023-06-17)
DX: F33.2 Major depressive disorder, recurrent severe without psychotic features (principal); R45.851 Suicidal ideations; Z99.81 Dependence on supplemental oxygen; F29 Unspecified psychosis not due to a substance or known physiological condition; G40.909 Epilepsy, unspecified, not intractable, without status epilepticus; E11.65 Type 2 diabetes mellitus with hyperglycemia; J45.909 Unspecified asthma, uncomplicated; E66.01 Morbid (severe) obesity due to excess calories; F20.9 Schizophrenia, unspecified; E78.5 Hyperlipidemia, unspecified; G47.09 Other insomnia; F43.10 Post-traumatic stress disorder, unspecified; G43.909 Migraine, unspecified, not intractable, without status migrainosus; I10 Essential (primary) hypertension; F12.20 Cannabis dependence, uncomplicated; G47.33 Obstructive sleep apnea (adult) (pediatric); Z20.822 Contact with and (suspected) exposure to COVID-19; G89.29 Other chronic pain; M54.9 Dorsalgia, unspecified; Z88.6 Allergy status to analgesic agent; Z79.899 Other long term (current) drug therapy; Z79.82 Long term (current) use of aspirin; Z79.84 Long term (current) use of oral hypoglycemic drugs; Z68.41 Body mass index [BMI] 40.0-44.9, adult
CPT/HCPCS: 36415; 80053; 80061; 80305; 80320; 81001; 81025; 82948; 83036; 84443; 85025; 87081; 87811; 90686; 99285; Q0177

== ENCOUNTER 2024-08-30 16:31 | Inpatient (IN) | payer MEDICAID ==
[~2024-08-30] VITALS: Ht 165.1 cm; Wt 122.9 kg
[~2024-08-30 16:31] MED LIST changes: +FAMO20TA8 PO; +HYDR-3686 PO; +LINA5TAB4 PO; +MONT-40 PO; +NICO-687 TD; +ONDA-243 PO; -ONDA4TAB12 PO; +PIOG15TA8 PO; +PRAZ2CAP2 PO; +ROSU20TA2 PO; +TOP100T PO; -TOPI-253 PO; +TOPI-95 PO; +VENL150C5 PO; +VENL75TA90 PO
[2024-08-30 17:22] LABS: BASOPHILS # (AUTO) 0.1 X10'3 (0-0.2); BASOPHILS % (AUTO) 1.1 % (0-1); EOSINOPHILS % (AUTO) 0 % (0-6); HEMATOCRIT 54.5 % (35.0-45.0); LYMPHOCYTES # (AUTO) 3.6 X10'3 (1.1-4.8); LYMPHOCYTES % (AUTO) 29.8 % (21-51); MEAN CORPUSCULAR HEMOGLOBIN 30.9 PG (27.0-31.0); MEAN CORPUSCULAR HGB CONC 34.8 g/dL (33.0-36.5); MEAN CORPUSCULAR VOLUME 88.7 FL (78-98); MEAN PLATELET VOLUME 7.3 FL (7.4-10.4); MONOCYTES # (AUTO) 1.1 X10'3 (0-0.9); MONOCYTES % (AUTO) 8.9 % (2-12); NEUTROPHILS # (AUTO) 7.4 X10'3 (1.8-7.7); NEUTROPHILS % (AUTO) 60.2 % (42-75); PLATELET COUNT 297 X10'3 (140-440); RED BLOOD COUNT 6.14 X10'6 (4.20-5.60); WHITE BLOOD COUNT 12.2 X10'3 (4.5-11.0)
[2024-08-30 17:31] LABS: ALANINE AMINOTRANSFERASE 19 U/L (12-78); ALBUMIN 3.8 G/DL (3.4-5.0); ALBUMIN/GLOBULIN RATIO 0.8 (1.1-1.5); ALKALINE PHOSPHATASE 88 IU/L (46-116); ANION GAP 19 (8-16); ASPARTATE AMINO TRANSFERASE 12 U/L (10-37); BLOOD UREA NITROGEN 28 MG/DL (7-18); BUN/CREATININE RATIO 22.8 (10.0-20.0); CALCIUM 9.4 MG/DL (8.5-10.1); CHLORIDE 91 MMOL/L (99-107); CREATININE 1.23 MG/DL (0.40-0.90); GLUCOSE 389 MG/DL (70-104); SODIUM 136 MMOL/L (135-145); TOTAL CARBON DIOXIDE 26.4 MMOL/L (24-32); TOTAL PROTEIN 8.7 G/DL (6.4-8.2); eCRCL 48 ML/MIN; eGFR 46 ML/MIN
[2024-08-30] MEDS: normal saline 1000ml 1,000 ML IV ONE ×2 (17:41→18:53)
[2024-08-30] MEDS: normal saline 1000ML IV soln IVB ONE (17:42)
[2024-08-30 17:44] LABS: POTASSIUM 2.8 MMOL/L (3.5-5.1)
[2024-08-30 17:51] LABS: MAGNESIUM 1.7 MG/DL (1.5-2.4)
[2024-08-30] MEDS: ondansetron/PF 4mg/2ml inj IV ONE (18:34)
[2024-08-30] MEDS: acetaminophen 1,000mg/100ml IV 100 ML IV ONE (18:35)
[2024-08-30 18:50] LABS: LIPASE 57 U/L (16-77)
[2024-08-30] MEDS: potassium Cl 40MEQ/1/2NS 520ml 520 ML IV ONE (18:51)
[2024-08-30] MEDS: diphenhydrAMINE 50 mg/ml inj IV ONE (20:41)
[2024-08-30] MEDS: proCHLORperazine 10 MG/2 ml inj IV ONE (20:41)
[2024-08-30 21:39] LABS: BILIRUBIN,URINE SMALL (Neg); CLARITY,URINE SLIGHTLY CLOUDY (Clear); COLOR,URINE YELLOW (Yellow); GLUCOSE, URINE 500 mg/dl (Neg); KETONES,URINE >=80 mg/dl (Neg); LEUKOCYTE ESTERASE ,URINE NEGATIVE (Neg); NITRITES, URINE NEGATIVE (Neg); OCCULT BLOOD,URINE NEGATIVE (Neg); PROTEIN,URINE 30 mg/dl (Neg)
[2024-08-30] MEDS ORDERED: magnesium sulf-water 4G/100mL 100 ML IV PRN (21:50)
[2024-08-30] MEDS ORDERED: magnesium Cl slow-release 64mg tablet PO PRN (21:50)
[2024-08-30] MEDS ORDERED: mag hydrox/Alum hydrox/simeth 30ml oral suspension PO PRN (21:50)
[2024-08-30] MEDS ORDERED: magnesium hydroxide 30ml (MOM) UD suspension PO PRN (21:50)
[2024-08-30] MEDS ORDERED: potassium Cl 20 mEq SR tablet PO PRN ×2 (21:50)
[2024-08-30] MEDS: normal saline 1000ml 1,000 ML IV SCH (21:50)
[2024-08-30] MEDS ORDERED: magnesium sulf-water 2g/50mL 50 ML IV PRN (21:50)
[2024-08-30] MEDS ORDERED: acetaminophen 325mg tablet PO PRN (21:50)
[2024-08-30 21:52] LABS: UA COLLECTION TYPE CLN CATCH MIDSTREAM
[2024-08-30 21:53] LABS: BACTERIA,URINE 2+ /HPF (Neg); RBC,URINE NONE SEEN /HPF (0-2); SQUAMOUS EPITHELIAL CELL,UR MODERATE /LPF (FEW)
[2024-08-30 22:16] LABS: BASOPHILS # (AUTO) 0.1 X10'3 (0-0.2); BASOPHILS % (AUTO) 0.8 % (0-1); EOSINOPHILS % (AUTO) 0 % (0-6); HEMATOCRIT 45.5 % (35.0-45.0); HEMOGLOBIN 15.9 g/dl (12.0-16.0); LYMPHOCYTES # (AUTO) 3.2 X10'3 (1.1-4.8); LYMPHOCYTES % (AUTO) 33.8 % (21-51); MEAN CORPUSCULAR HEMOGLOBIN 31.2 PG (27.0-31.0); MEAN CORPUSCULAR HGB CONC 34.9 g/dL (33.0-36.5); MEAN CORPUSCULAR VOLUME 89.4 FL (78-98); MEAN PLATELET VOLUME 7.1 FL (7.4-10.4); MONOCYTES # (AUTO) 0.9 X10'3 (0-0.9); MONOCYTES % (AUTO) 9.1 % (2-12); NEUTROPHILS # (AUTO) 5.3 X10'3 (1.8-7.7); NEUTROPHILS % (AUTO) 56.3 % (42-75); PLATELET COUNT 208 X10'3 (140-440); RED BLOOD COUNT 5.09 X10'6 (4.20-5.60); RED CELL DISTRIBUTION WIDTH 13.6 % (11.5-14.5); WHITE BLOOD COUNT 9.4 X10'3 (4.5-11.0)
[2024-08-30 22:27] LABS: APTT 25 SECONDS (22-32); INR 1.2 INR; PROTHROMBIN TIME 12.1 SECONDS (9.0-12.0)
[2024-08-30 22:37] LABS: ALANINE AMINOTRANSFERASE 14 U/L (12-78); ALBUMIN 2.7 G/DL (3.4-5.0); ALBUMIN/GLOBULIN RATIO 0.8 (1.1-1.5); ALKALINE PHOSPHATASE 64 IU/L (46-116); ANION GAP 9 (8-16); ASPARTATE AMINO TRANSFERASE 13 U/L (10-37); BILIRUBIN,TOTAL 0.7 MG/DL (0.1-1.0); BLOOD UREA NITROGEN 24 MG/DL (7-18); BUN/CREATININE RATIO 22.9 (10.0-20.0); CALCIUM 7.8 MG/DL (8.5-10.1); CHLORIDE 101 MMOL/L (99-107); CREATININE 1.05 MG/DL (0.40-0.90); GLUCOSE 249 MG/DL (70-104); MAGNESIUM 1.4 MG/DL (1.5-2.4); PRO BRAIN NATRIURETIC PEPTIDE 252 PG/ML (0-125); SODIUM 137 MMOL/L (135-145); TOTAL CARBON DIOXIDE 27.3 MMOL/L (24-32); TOTAL PROTEIN 6.2 G/DL (6.4-8.2); eCRCL 56 ML/MIN; eGFR 55 ML/MIN
[2024-08-30 22:47] LABS: URINE AMPHETAMINE SCREEN NEGATIVE (Neg); URINE BARBITUATE SCREEN NEGATIVE (Neg); URINE BENZODIAZEPINES SCREEN NEGATIVE (Neg); URINE CANNABINOID SCREEN POSITIVE (Neg); URINE COCAINE SCREEN NEGATIVE (Neg); URINE METHADONE SCREEN NEGATIVE (Neg); URINE OPIATE SCREEN NEGATIVE (Neg); URINE PHENCYCLIDINE SCREEN NEGATIVE (Neg)
[2024-08-30 22:53] LABS: POTASSIUM 2.7 MMOL/L (3.5-5.1)
[2024-08-31] MEDS ORDERED: DEXTROSE 15 GM of carb/4 tabs (each vial/BOTTLE has 4 tablets) PO PRN ×2 (01:05)
[2024-08-31] MEDS ORDERED: glucagon, human recombinant 1mg kit SUBCUT PRN (01:05)
[2024-08-31] MEDS ORDERED: dextrose 50%-water 50ml dispensing syringe IV PRN ×2 (01:05)
[2024-08-31] MEDS: topiramate 100mg tablet PO SCH (02:13)
[2024-08-31] MEDS: CefTRIAXone 2gm/D5W 50ml BAG 50 ML IV SCH (02:13)
[2024-08-31] MEDS: insulin glargine (Lantus) pen - multi-dose SQ SCH (02:25)
[2024-08-31] MEDS: potassium Cl 40MEQ/1/2NS 520ml 520 ML IV PRN (02:47)
[2024-08-31] MEDS: acetaminophen 325mg tablet PO PRN (02:56)
[2024-08-31 03:41] LABS: BASOPHILS # (AUTO) 0.1 X10'3 (0-0.2); BASOPHILS % (AUTO) 1.2 % (0-1); EOSINOPHILS % (AUTO) 0.1 % (0-6); HEMATOCRIT 44.3 % (35.0-45.0); HEMOGLOBIN 15.1 g/dl (12.0-16.0); LYMPHOCYTES # (AUTO) 3.3 X10'3 (1.1-4.8); LYMPHOCYTES % (AUTO) 40.8 % (21-51); MEAN CORPUSCULAR HGB CONC 34.2 g/dL (33.0-36.5); MEAN CORPUSCULAR VOLUME 90.7 FL (78-98); MEAN PLATELET VOLUME 7.2 FL (7.4-10.4); MONOCYTES # (AUTO) 0.6 X10'3 (0-0.9); NEUTROPHILS % (AUTO) 49.9 % (42-75); PLATELET COUNT 192 X10'3 (140-440); RED BLOOD COUNT 4.88 X10'6 (4.20-5.60); RED CELL DISTRIBUTION WIDTH 13.6 % (11.5-14.5)
[2024-08-31 03:51] LABS: HEMOGLOBIN A1C 9.6 % (4.5-6.2)
[2024-08-31 03:54] LABS: APTT 26 SECONDS (22-32); INR 1.1 INR; PROTHROMBIN TIME 11.8 SECONDS (9.0-12.0)
[2024-08-31 04:09] LABS: ALANINE AMINOTRANSFERASE 10 U/L (12-78); ALBUMIN 2.7 G/DL (3.4-5.0); ALBUMIN/GLOBULIN RATIO 0.8 (1.1-1.5); ALKALINE PHOSPHATASE 58 IU/L (46-116); ANION GAP 9 (8-16); ASPARTATE AMINO TRANSFERASE 12 U/L (10-37); BILIRUBIN,TOTAL 0.5 MG/DL (0.1-1.0); BLOOD UREA NITROGEN 21 MG/DL (7-18); BUN/CREATININE RATIO 22.1 (10.0-20.0); CALCIUM 7.6 MG/DL (8.5-10.1); CHLORIDE 102 MMOL/L (99-107); CHOLESTEROL 115 MG/DL (0-200); CREATININE 0.95 MG/DL (0.40-0.90); FREE T4 (FREE THYROXINE) 1.29 NG/DL (0.73-1.40); GLUCOSE 203 MG/DL (70-104); HDL CHOLESTEROL 29 MG/DL (35-60); LDL CHOLESTEROL 45 MG/DL (50-100); MAGNESIUM 1.5 MG/DL (1.5-2.4); PHOSPHORUS 2.6 MG/DL (2.3-4.5); SODIUM 138 MMOL/L (135-145); TOTAL CARBON DIOXIDE 27.1 MMOL/L (24-32); TOTAL PROTEIN 6.2 G/DL (6.4-8.2); TRIGLYCERIDES 290 MG/DL (20-135); eCRCL 62 ML/MIN; eGFR 62 ML/MIN
[2024-08-31 04:19] LABS: POTASSIUM 2.4 MMOL/L (3.5-5.1)
[2024-08-31] MEDS: proCHLORperazine 10 MG/2 ml inj IV PRN (05:15)
[2024-08-31] MEDS: K and/or MAG REPLACEMENT MC SCH (08:00)
[2024-08-31] MEDS: docusate sod 100mg capsule PO SCH (08:00)
[2024-08-31] MEDS: INSULIN LISPRO 100 UNIT/ML INSULN.PEN MULTI-DOSE SQ SCH (08:00)
[2024-08-31] MEDS: ondansetron/PF 4mg/2ml inj IV PRN (08:14)
[2024-08-31] MEDS: ringers solution, lacted 1,000 ML IV ONE (09:59)
[2024-08-31] MEDS ORDERED: EMPA25TA PO (10:57)
[2024-08-31] MEDS ORDERED: BACL20TA8 PO (10:57)
[2024-08-31] MEDS ORDERED: TIRZ2.5P INJ (13:09)
[2024-08-31 15:41] LABS: ALANINE AMINOTRANSFERASE 21 U/L (12-78); ALBUMIN 2.6 G/DL (3.4-5.0); ALBUMIN/GLOBULIN RATIO 0.8 (1.1-1.5); ALKALINE PHOSPHATASE 63 IU/L (46-116); ANION GAP 7 (8-16); ASPARTATE AMINO TRANSFERASE 14 U/L (10-37); BILIRUBIN,TOTAL 0.4 MG/DL (0.1-1.0); BLOOD UREA NITROGEN 19 MG/DL (7-18); BUN/CREATININE RATIO 19.8 (10.0-20.0); CALCIUM 7.9 MG/DL (8.5-10.1); CHLORIDE 108 MMOL/L (99-107); CREATININE 0.96 MG/DL (0.40-0.90); GLUCOSE 271 MG/DL (70-104); SODIUM 142 MMOL/L (135-145); TOTAL CARBON DIOXIDE 27.3 MMOL/L (24-32); TOTAL PROTEIN 5.8 G/DL (6.4-8.2); eCRCL 61 ML/MIN; eGFR 61 ML/MIN
[2024-08-31] MEDS: pneumococcal 23-VAL P-sac vacc 25 mcg/0.5ml vial IMVAC ONE (16:15)
[2024-08-31] MEDS: FLU VACC TS2024-25(6MOS UP)/PF 45 MCG/0.5 ML SYRINGE IMVAC ONE (16:16)
[2024-08-31 18:00] VITALS: BP 137/74; PULSE 69; RESP 20; TEMP 98.8; O2SAT 98
[2024-08-31] MEDS: enoxaparin 40mg/0.4ml syringe SQ SCH (20:20)
[2024-08-31 22:00] VITALS: BP 117/68; PULSE 63; RESP 14; TEMP 98.2; O2SAT 97
[2024-09-01] MEDS: HYDROcodone/acetaminophen 5mg/325mg tablet PO ONE (00:49)
[2024-09-01 05:48] LABS: BASOPHILS % (AUTO) 0.5 % (0-1); EOSINOPHILS % (AUTO) 0.5 % (0-6); HEMATOCRIT 43.4 % (35.0-45.0); HEMOGLOBIN 14.8 g/dl (12.0-16.0); LYMPHOCYTES # (AUTO) 3.2 X10'3 (1.1-4.8); MEAN CORPUSCULAR HEMOGLOBIN 31.3 PG (27.0-31.0); MEAN CORPUSCULAR HGB CONC 34.1 g/dL (33.0-36.5); MEAN PLATELET VOLUME 7.7 FL (7.4-10.4); MONOCYTES # (AUTO) 0.6 X10'3 (0-0.9); MONOCYTES % (AUTO) 7.3 % (2-12); NEUTROPHILS # (AUTO) 4.4 X10'3 (1.8-7.7); NEUTROPHILS % (AUTO) 52.7 % (42-75); PLATELET COUNT 184 X10'3 (140-440); RED BLOOD COUNT 4.72 X10'6 (4.20-5.60); RED CELL DISTRIBUTION WIDTH 13.5 % (11.5-14.5); WHITE BLOOD COUNT 8.3 X10'3 (4.5-11.0)
[2024-09-01 06:02] LABS: APTT 27 SECONDS (22-32); INR 1.1 INR; PROTHROMBIN TIME 11.5 SECONDS (9.0-12.0)
[2024-09-01 06:22] LABS: ALANINE AMINOTRANSFERASE 17 U/L (12-78); ALBUMIN 2.7 G/DL (3.4-5.0); ALBUMIN/GLOBULIN RATIO 0.8 (1.1-1.5); ALKALINE PHOSPHATASE 58 IU/L (46-116); ANION GAP 5 (8-16); ASPARTATE AMINO TRANSFERASE 12 U/L (10-37); BILIRUBIN,TOTAL 0.3 MG/DL (0.1-1.0); BLOOD UREA NITROGEN 15 MG/DL (7-18); CALCIUM 8.3 MG/DL (8.5-10.1); CHLORIDE 111 MMOL/L (99-107); CREATININE 0.79 MG/DL (0.40-0.90); GLUCOSE 137 MG/DL (70-104); MAGNESIUM 1.5 MG/DL (1.5-2.4); PHOSPHORUS 3.4 MG/DL (2.3-4.5); POTASSIUM 3.8 MMOL/L (3.5-5.1); SODIUM 143 MMOL/L (135-145); TOTAL CARBON DIOXIDE 26.7 MMOL/L (24-32); eCRCL 74 ML/MIN; eGFR 76 ML/MIN
[2024-09-01] MEDS ORDERED: aspirin/acetaminophen/caffeine tablet PO PRN (07:45)
[2024-09-01] MEDS ORDERED: baclofen 10mg tablet PO PRN (07:45)
[2024-09-01 08:00] VITALS: RESP 16; O2SAT 98
[2024-09-01] MEDS ORDERED: ondansetron 4mg rapidly disintigrating tab PO SCH (08:00)
[2024-09-01] MEDS ORDERED: TOPIRAMATE PO SCH (08:00)
[2024-09-01] MEDS: morphine 2 MG/ML inj. syringe IV PRN (08:45)
[2024-09-01] MEDS: diphenhydrAMINE 25mg capsule PO PRN (08:45)
[2024-09-01] MEDS: ziprasidone 20mg capsule PO SCH (09:05)
[2024-09-01] MEDS: venlafaxine XR 75mg capsule (Q24H) PO SCH (09:05)
[2024-09-01] MEDS: montelukast 10mg tablet PO SCH (09:05)
[2024-09-01] MEDS: famotidine 20mg tablet PO SCH (09:05)
[2024-09-01] MEDS: EMPAGLIFLOZIN 25 MG TABLET PO SCH (09:05)
[2024-09-01 09:17] VITALS: RESP 16
[2024-09-01 10:10] VITALS: BP 131/62; PULSE 69; RESP 18; TEMP 98; O2SAT 97
[2024-09-01 14:25] VITALS: RESP 16
[2024-09-01] MEDS ORDERED: ziprasidone 20mg capsule PO SCH (21:00)
[2024-09-01] MEDS ORDERED: traZODone 50mg tablet PO SCH (21:00)
[2024-09-01] MEDS ORDERED: haloperidol 1mg tablet PO SCH (21:00)
[2024-09-01] MEDS ORDERED: atorvastatin 20mg tablet PO SCH (21:00)
[2024-09-01] MEDS ORDERED: divalproex sod 250mg ER (24-hour) tablet PO SCH (21:00)
[2024-09-01] MEDS ORDERED: prazosin 1mg capsule PO SCH (21:00)
== END 2024-09-01 16:05 | disposition home or self-care (01) | DRG 420 ==
LOC: ER 16:32 → ED HOLD 21:55 → EDBEDREQ 08-31 00:10 → ORTHO 4S 08-31 17:50
PROVIDERS: ADMIT Internal Medicine Critical Care Medicine; ATTEND Family Medicine
DX: E11.65 Type 2 diabetes mellitus with hyperglycemia (principal); E83.42 Hypomagnesemia; E86.0 Dehydration; E87.6 Hypokalemia; F12.90 Cannabis use, unspecified, uncomplicated; F20.9 Schizophrenia, unspecified; F31.9 Bipolar disorder, unspecified; G40.909 Epilepsy, unspecified, not intractable, without status epilepticus; I10 Essential (primary) hypertension; J45.909 Unspecified asthma, uncomplicated; Z88.8 Allergy status to other drugs, medicaments and biological substances; Z79.84 Long term (current) use of oral hypoglycemic drugs; Z79.899 Other long term (current) drug therapy
CPT/HCPCS: 36415; 71045; 74176; 80053; 80061; 80164; 80305; 81001; 82948; 83036; 83605; 83690; 83735; 83880; 84100; 84132; 84145; 84439; 84443; 85025; 85610; 85730; 87040; 87077; 87081; 87088; 87186; 90686; 90732; 93005; 99285; A6250; G0378; J0131; J0696; J0780; J1200; J1650; J1815; J2270; J2405; J3480; J7030; J7120; Q0163

== ENCOUNTER 2024-09-27 09:33 | Inpatient (IN) | payer MEDICAID ==
[~2024-09-27] VITALS: Ht 165.1 cm; Wt 113.6 kg
[~2024-09-27 09:33] MED LIST changes: +BACL20TA8 PO; +EMPA25TA PO; -HYDR-3686 PO; -LINA5TAB4 PO; -MELO-102 PO; -NICO-687 TD; -PIOG15TA8 PO; +TIRZ2.5P INJ; -TOP100T PO
[2024-09-27 10:31] LABS: BASOPHILS # (AUTO) 0.1 X10'3 (0-0.2); BASOPHILS % (AUTO) 0.7 % (0-1); EOSINOPHILS % (AUTO) 0.5 % (0-6); HEMATOCRIT 53.7 % (35.0-45.0); LYMPHOCYTES # (AUTO) 3.3 X10'3 (1.1-4.8); LYMPHOCYTES % (AUTO) 36.9 % (21-51); MEAN CORPUSCULAR HEMOGLOBIN 30.6 PG (27.0-31.0); MEAN CORPUSCULAR HGB CONC 33.7 g/dL (33.0-36.5); MEAN CORPUSCULAR VOLUME 90.6 FL (78-98); MEAN PLATELET VOLUME 7.4 FL (7.4-10.4); MONOCYTES # (AUTO) 0.6 X10'3 (0-0.9); MONOCYTES % (AUTO) 6.9 % (2-12); NEUTROPHILS # (AUTO) 4.9 X10'3 (1.8-7.7); PLATELET COUNT 310 X10'3 (140-440); RED BLOOD COUNT 5.92 X10'6 (4.20-5.60); RED CELL DISTRIBUTION WIDTH 14.3 % (11.5-14.5)
[2024-09-27 10:35] LABS: HEMOGLOBIN 18.1 g/dl (12.0-16.0)
[2024-09-27 10:50] LABS: ALANINE AMINOTRANSFERASE 31 U/L (12-78); ALBUMIN/GLOBULIN RATIO 0.8 (1.1-1.5); ALKALINE PHOSPHATASE 97 IU/L (46-116); ANION GAP 16 (8-16); ASPARTATE AMINO TRANSFERASE 16 U/L (10-37); BILIRUBIN,TOTAL 0.6 MG/DL (0.1-1.0); BLOOD UREA NITROGEN 17 MG/DL (7-18); BUN/CREATININE RATIO 12.3 (10.0-20.0); CALCIUM 9.8 MG/DL (8.5-10.1); CHLORIDE 99 MMOL/L (99-107); CREATININE 1.38 MG/DL (0.40-0.90); LIPASE 59 U/L (16-77); POTASSIUM 4.1 MMOL/L (3.5-5.1); SODIUM 136 MMOL/L (135-145); TOTAL CARBON DIOXIDE 20.7 MMOL/L (24-32); eCRCL 42 ML/MIN; eGFR 40 ML/MIN
[2024-09-27] MEDS: acetaminophen 1,000mg/100ml IV 100 ML IV ONE (10:55)
[2024-09-27] MEDS: normal saline 1000ml 1,000 ML IV ONE ×2 (10:55→11:52)
[2024-09-27] MEDS: ondansetron/PF 4mg/2ml inj IV ONE (10:55)
[2024-09-27 11:05] LABS: GLUCOSE 432 MG/DL (70-104)
[2024-09-27] MEDS: morphine 4 MG/ML inj SYRINge IV ONE ×2 (11:40→13:30)
[2024-09-27] MEDS: insulin regular, human 10 units/0.1 ml syringe IV ONE (11:44)
[2024-09-27 12:50] LABS: BILIRUBIN,URINE SMALL (Neg); CLARITY,URINE SLIGHTLY CLOUDY (Clear); GLUCOSE, URINE >=1000 mg/dl (Neg); KETONES,URINE TRACE mg/dl (Neg); LEUKOCYTE ESTERASE ,URINE NEGATIVE (Neg); NITRITES, URINE NEGATIVE (Neg); OCCULT BLOOD,URINE NEGATIVE (Neg); PROTEIN,URINE 30 mg/dl (Neg); URINE HCG NEGATIVE (NEG); UROBILINOGEN,URINE 0.2 E.U/dL (0.2-1.0)
[2024-09-27 13:10] LABS: COLOR,URINE DARK YELLOW (Yellow); UA COLLECTION TYPE CLN CATCH MIDSTREAM
[2024-09-27 13:11] LABS: BACTERIA,URINE 1+ /HPF (Neg); RBC,URINE 0-2 /HPF (0-2); SQUAMOUS EPITHELIAL CELL,UR MODERATE /LPF (FEW); TRANSITIONAL EPI CELLS,URINE FEW /HPF
[2024-09-27 13:12] LABS: COARSE GRANULAR CAST 0-3 /LPF (NEGATIVE); YEAST FEW /HPF (NEGATIVE)
[2024-09-27] MEDS: proCHLORperazine 10 MG/2 ml inj IV ONE (13:29)
[2024-09-27] MEDS ORDERED: iohexol 300mg/ml 100ml inj. ONE (13:37)
[2024-09-27] MEDS ORDERED: HYDROcodone/acetaminophen 5mg/325mg tablet PO PRN (16:00)
[2024-09-27] MEDS ORDERED: bisacodyl 10mg suppository rectal RC PRN (16:00)
[2024-09-27] MEDS ORDERED: diphenhydrAMINE 25mg capsule PO PRN (16:00)
[2024-09-27] MEDS ORDERED: DEXTROSE 15 GM of carb/4 tabs (each vial/BOTTLE has 4 tablets) PO PRN ×2 (16:00)
[2024-09-27] MEDS ORDERED: magnesium sulf-water 4G/100mL 100 ML IV PRN (16:00)
[2024-09-27] MEDS ORDERED: potassium Cl 40MEQ/1/2NS 520ml 520 ML IV PRN (16:00)
[2024-09-27] MEDS ORDERED: ondansetron/PF 4mg/2ml inj IV PRN (16:00)
[2024-09-27] MEDS ORDERED: mag hydrox/Alum hydrox/simeth 30ml oral suspension PO PRN (16:00)
[2024-09-27] MEDS ORDERED: acetaminophen 650mg rectal suppository RC PRN (16:00)
[2024-09-27] MEDS ORDERED: magnesium hydroxide 30ml (MOM) UD suspension PO PRN (16:00)
[2024-09-27] MEDS ORDERED: acetaminophen 325mg tablet PO PRN ×2 (16:00)
[2024-09-27] MEDS ORDERED: dextrose 5%-normal saline 1,000 ML IV SCH (16:00)
[2024-09-27] MEDS ORDERED: morphine 2 MG/ML inj. syringe IV PRN ×2 (16:00)
[2024-09-27] MEDS ORDERED: ondansetron 4mg rapidly disintigrating tab PO PRN (16:00)
[2024-09-27] MEDS ORDERED: magnesium Cl slow-release 64mg tablet PO PRN (16:00)
[2024-09-27] MEDS ORDERED: potassium Cl 20 mEq SR tablet PO PRN (16:00)
[2024-09-27] MEDS ORDERED: dextrose 50%-water 50ml dispensing syringe IV PRN ×2 (16:00)
[2024-09-27] MEDS ORDERED: glucagon, human recombinant 1mg kit SUBCUT PRN (16:00)
[2024-09-27] MEDS ORDERED: magnesium sulf-water 2g/50mL 50 ML IV PRN (16:00)
[2024-09-27] MEDS: pantoprazole 40 MG vial IV SCH (17:06)
[2024-09-27] MEDS: normal saline 1000ml 1,000 ML IV SCH (18:02)
[2024-09-27] MEDS: INSULIN LISPRO 100 UNIT/ML INSULN.PEN MULTI-DOSE SQ SCH ×2 (18:09→18:54)
[2024-09-27] MEDS: docusate sod 100mg capsule PO SCH (20:00)
[2024-09-27] MEDS: K and/or MAG REPLACEMENT MC SCH (20:00)
[2024-09-27] MEDS: heparin, porcine 5000 units/ml vial SQ SCH (20:16)
[2024-09-27] MEDS ORDERED: baclofen 10mg tablet PO PRN (20:40)
[2024-09-27] MEDS: insulin glargine (Lantus) pen - multi-dose SQ SCH (21:14)
[2024-09-27 21:21] VITALS: BP 117/74; PULSE 77; RESP 16; TEMP 98.5; O2SAT 98
[2024-09-27] MEDS: HYDROcodone/acetaminophen 10/325mg tab PO PRN (22:35)
[2024-09-27] MEDS: divalproex sod 250mg ER (24-hour) tablet PO SCH (22:59)
[2024-09-27] MEDS: traZODone 50mg tablet PO SCH (22:59)
[2024-09-27] MEDS: ziprasidone 20mg capsule PO SCH (23:00)
[2024-09-27] MEDS: atorvastatin 20mg tablet PO SCH (23:00)
[2024-09-27] MEDS: topiramate 100mg tablet PO SCH (23:01)
[2024-09-27] MEDS: prazosin 1mg capsule PO SCH (23:01)
[2024-09-28 06:00] VITALS: BP 93/57; PULSE 75; RESP 16; TEMP 98.3; O2SAT 94
[2024-09-28 06:47] LABS: BASOPHILS % (AUTO) 0.4 % (0-1); EOSINOPHILS # (AUTO) 0.1 X10'3 (0-0.9); EOSINOPHILS % (AUTO) 1.9 % (0-6); HEMOGLOBIN 14.1 g/dl (12.0-16.0); LYMPHOCYTES % (AUTO) 55.9 % (21-51); MEAN CORPUSCULAR HGB CONC 33.6 g/dL (33.0-36.5); MEAN CORPUSCULAR VOLUME 92.2 FL (78-98); MEAN PLATELET VOLUME 7.2 FL (7.4-10.4); MONOCYTES # (AUTO) 0.3 X10'3 (0-0.9); MONOCYTES % (AUTO) 6.2 % (2-12); NEUTROPHILS # (AUTO) 1.9 X10'3 (1.8-7.7); NEUTROPHILS % (AUTO) 35.6 % (42-75); PLATELET COUNT 192 X10'3 (140-440); RED BLOOD COUNT 4.55 X10'6 (4.20-5.60); RED CELL DISTRIBUTION WIDTH 14.2 % (11.5-14.5); WHITE BLOOD COUNT 5.4 X10'3 (4.5-11.0)
[2024-09-28 07:16] LABS: ALBUMIN 2.5 G/DL (3.4-5.0); ANION GAP 10 (8-16); BLOOD UREA NITROGEN 11 MG/DL (7-18); BUN/CREATININE RATIO 12.5 (10.0-20.0); CHLORIDE 110 MMOL/L (99-107); CHOL/HDL RATIO 4.2 (0.00-4.99); CHOLESTEROL 101 MG/DL (0-200); CREATININE 0.88 MG/DL (0.40-0.90); GLUCOSE 157 MG/DL (70-104); HDL CHOLESTEROL 24 MG/DL (35-60); LDL CHOLESTEROL 37 MG/DL (50-100); MAGNESIUM 1.6 MG/DL (1.5-2.4); PHOSPHORUS 3.4 MG/DL (2.3-4.5); POTASSIUM 3.4 MMOL/L (3.5-5.1); SODIUM 143 MMOL/L (135-145); TOTAL CARBON DIOXIDE 23.4 MMOL/L (24-32); TRIGLYCERIDES 343 MG/DL (20-135); eCRCL 67 ML/MIN; eGFR 67 ML/MIN
[2024-09-28] MEDS: INSULIN LISPRO 100 UNIT/ML INSULN.PEN MULTI-DOSE SQ SCH ×2 (07:30→12:30)
[2024-09-28] MEDS: EMPAGLIFLOZIN 25 MG TABLET PO SCH (07:37)
[2024-09-28] MEDS: ziprasidone 20mg capsule PO SCH (07:37)
[2024-09-28] MEDS: venlafaxine XR 75mg capsule (Q24H) PO SCH (07:37)
[2024-09-28] MEDS: heparin, porcine 5000 units/ml vial SQ SCH (07:38)
[2024-09-28 08:00] VITALS: RESP 16; O2SAT 97
[2024-09-28] MEDS ORDERED: topiramate 100mg tablet PO SCH (08:00)
[2024-09-28] MEDS ORDERED: non-formulary drug (Venlafaxine HCl (Venlafaxine HCl ER) 1 TAB) PO SCH (08:00)
[2024-09-28 09:45] LABS: BILIRUBIN,URINE NEGATIVE (Neg); CLARITY,URINE CLEAR (Clear); COLOR,URINE YELLOW (Yellow); GLUCOSE, URINE NEGATIVE (Neg); KETONES,URINE NEGATIVE (Neg); LEUKOCYTE ESTERASE ,URINE SMALL (Neg); NITRITES, URINE NEGATIVE (Neg); OCCULT BLOOD,URINE TRACE-INTACT (Neg); PROTEIN,URINE NEGATIVE (Neg); UROBILINOGEN,URINE 0.2 E.U/dL (0.2-1.0)
[2024-09-28 09:50] LABS: UA COLLECTION TYPE OTHER
[2024-09-28 09:54] LABS: RBC,URINE 0-2 /HPF (0-2)
[2024-09-28 09:55] LABS: BACTERIA,URINE FEW /HPF (Neg); MUCUS STRANDS NONE SEEN /LPF (Neg); SQUAMOUS EPITHELIAL CELL,UR MANY /LPF (FEW)
[2024-09-28 10:00] LABS: URINE AMPHETAMINE SCREEN NEGATIVE (Neg); URINE BARBITUATE SCREEN NEGATIVE (Neg); URINE BENZODIAZEPINES SCREEN NEGATIVE (Neg); URINE CANNABINOID SCREEN POSITIVE (Neg); URINE COCAINE SCREEN NEGATIVE (Neg); URINE METHADONE SCREEN NEGATIVE (Neg); URINE OPIATE SCREEN POSITIVE (Neg); URINE PHENCYCLIDINE SCREEN NEGATIVE (Neg)
[2024-09-28] MEDS: potassium Cl 20 mEq SR tablet PO PRN (10:28)
[2024-09-28] MEDS ORDERED: ONDA-243 PO (12:30)
== END 2024-09-28 14:15 | disposition home or self-care (01) | DRG 422 ==
LOC: ER 09:33 → ED HOLD 16:00 → ORTHO 4S 21:58
PROVIDERS: ADMIT Family Medicine; ATTEND Family Medicine
DX: E86.0 Dehydration (principal); N17.0 Acute kidney failure with tubular necrosis; E11.65 Type 2 diabetes mellitus with hyperglycemia; F25.0 Schizoaffective disorder, bipolar type; I10 Essential (primary) hypertension; I25.10 Atherosclerotic heart disease of native coronary artery without angina pectoris; F32.A Depression, unspecified; E66.01 Morbid (severe) obesity due to excess calories; J45.909 Unspecified asthma, uncomplicated; J44.9 Chronic obstructive pulmonary disease, unspecified; J43.9 Emphysema, unspecified; Z79.84 Long term (current) use of oral hypoglycemic drugs; Z88.6 Allergy status to analgesic agent; Z79.899 Other long term (current) drug therapy; Z68.41 Body mass index [BMI] 40.0-44.9, adult
CPT/HCPCS: 36415; 71045; 74176; 80048; 80053; 80061; 80305; 81001; 81025; 82948; 83690; 83735; 84100; 85025; 87081; 87088; 87502; 87503; 96372; 96374; 96375; 96376; 99285; G0378; J0131; J0780; J1644; J1815; J2270; J2405; J2470; J7030; Q9967

== ENCOUNTER 2024-12-12 07:13 | Inpatient (IN) | payer MEDICAID, SELFPAY ==
[~2024-12-12] VITALS: Ht 165.1 cm; Wt 123.6 kg
[~2024-12-12 07:13] MED LIST changes: -ASPI-144 PO; -HALO2ORA3 PO; -MONT-40 PO
[2024-12-12 07:52] LABS: BASOPHILS % (AUTO) 0.3 % (0-1); EOSINOPHILS % (AUTO) 0.1 % (0-6); HEMOGLOBIN 17.6 g/dl (12.0-16.0); LYMPHOCYTES # (AUTO) 1.6 X10'3 (1.1-4.8); LYMPHOCYTES % (AUTO) 13.6 % (21-51); MEAN CORPUSCULAR HGB CONC 33.8 g/dL (33.0-36.5); MEAN CORPUSCULAR VOLUME 88.9 FL (78-98); MEAN PLATELET VOLUME 7.6 FL (7.4-10.4); MONOCYTES # (AUTO) 0.6 X10'3 (0-0.9); MONOCYTES % (AUTO) 4.8 % (2-12); NEUTROPHILS # (AUTO) 9.7 X10'3 (1.8-7.7); NEUTROPHILS % (AUTO) 81.2 % (42-75); PLATELET COUNT 232 X10'3 (140-440); RED BLOOD COUNT 5.86 X10'6 (4.20-5.60); RED CELL DISTRIBUTION WIDTH 15.3 % (11.5-14.5); WHITE BLOOD COUNT 11.9 X10'3 (4.5-11.0)
[2024-12-12] MEDS: OLANZapine **IM** 10 mg inj. IM ONE (07:57)
[2024-12-12 07:58] LABS: BILIRUBIN,URINE NEGATIVE (Neg); CLARITY,URINE SLIGHTLY CLOUDY (Clear); COLOR,URINE YELLOW (Yellow); GLUCOSE, URINE >=1000 mg/dl (Neg); KETONES,URINE 15 mg/dl (Neg); LEUKOCYTE ESTERASE ,URINE TRACE (Neg); NITRITES, URINE POSITIVE (Neg); OCCULT BLOOD,URINE LARGE (Neg); PROTEIN,URINE 30 mg/dl (Neg); UROBILINOGEN,URINE 0.2 E.U/dL (0.2-1.0)
[2024-12-12 08:02] LABS: UA COLLECTION TYPE CLN CATCH MIDSTREAM
[2024-12-12 08:05] LABS: RBC,URINE TNTC /HPF (0-2); WBC,URINE 50-100 /HPF (0-4)
[2024-12-12 08:06] LABS: BACTERIA,URINE FEW /HPF (Neg); MUCUS STRANDS FEW /LPF (Neg); SQUAMOUS EPITHELIAL CELL,UR MODERATE /LPF (FEW)
[2024-12-12 08:20] LABS: ALANINE AMINOTRANSFERASE 9 U/L (12-78); ALBUMIN 3.7 G/DL (3.4-5.0); ALBUMIN/GLOBULIN RATIO 0.8 (1.1-1.5); ALKALINE PHOSPHATASE 79 IU/L (46-116); ANION GAP 16 (8-16); ASPARTATE AMINO TRANSFERASE 12 U/L (10-37); BILIRUBIN,TOTAL 0.5 MG/DL (0.1-1.0); BLOOD UREA NITROGEN 20 MG/DL (7-18); BUN/CREATININE RATIO 18.9 (10.0-20.0); CALCIUM 9.8 MG/DL (8.5-10.1); CHLORIDE 99 MMOL/L (99-107); CREATININE 1.06 MG/DL (0.40-0.90); GLUCOSE 281 MG/DL (70-104); SODIUM 139 MMOL/L (135-145); TOTAL CARBON DIOXIDE 23.7 MMOL/L (24-32); TOTAL PROTEIN 8.6 G/DL (6.4-8.2); eCRCL 55 ML/MIN; eGFR 54 ML/MIN
[2024-12-12 08:21] LABS: LIPASE 32 U/L (16-77)
[2024-12-12] MEDS: acetaminophen 1,000mg/100ml IV 100 ML IV STA (11:17)
[2024-12-12] MEDS: ketorolac trometh 30MG/ML vial 30 MG/ML VIAL IV STA (11:18)
[2024-12-12] MEDS: CefTRIAXone 2gm/D5W 50ml BAG 50 ML IV STA (11:19)
[2024-12-12] MEDS: normal saline 1000ml 1,000 ML IV STA (11:22)
--- NOTE | 2024-12-12 12:39 | Physician Documentation ---
History of Present Illness ~ Chief Complaint: Flank Pain Stated Complaint: MULTIPLE MEDICAL COMPLAINTS Time Seen by MD: 09:02 Mode of Arrival: POV HPI Patient is seen today with her with complaints of feeling very ill and weak with urinary symptoms of dysuria and urgency and frequency as well as flank pain and lower abdominal pain and low back pain. Patient denies any chest pain or shortness of breath or diarrhea but patient does admit to nausea and vomiting. Patient does admit to history of urinary tract infections requiring hospitalization. Patient has no other concern or complaint at this time. Medication Reconciliation Allergies: Coded Allergies: ibuprofen (Unverified Allergy, Unknown, 12/12/24) Scheduled Divalproex ER* (Depakote ER*), 3 TAB PO HS, (Reported) Empagliflozin (Jardiance), 1 TAB PO QAM, (Reported) Ergocalciferol (Vitamin D2) (Vitamin D2), 1 CAP PO Q7D, (Reported) Famotidine (Famotidine), 1 TAB PO DAILY, (Reported) Metformin HCl (Metformin HCl), 1 TAB PO Q12H, (Reported) Prazosin Hcl (Prazosin Hcl), 1 CAP PO HS, (Reported) Rosuvastatin Calcium* (Crestor*), 1 TAB PO HS, (Reported) Tirzepatide (Mounjaro), 1 UNIT INJ Q7D, (Reported) Topiramate (Topiramate), 2 TAB PO Q12H, (Reported) Trazodone HCl (Trazodone HCl), 2 TAB PO HS Venlafaxine HCl (Effexor Xr), 1 CAP PO DAILY, (Reported) Venlafaxine HCl (Venlafaxine HCl ER), 1 TAB PO DAILY Ziprasidone Hcl (Ziprasidone Hcl), 1 CAP PO QAM, (Reported) Ziprasidone Hcl (Ziprasidone Hcl), 2 CAP PO HS, (Reported) Scheduled PRN Baclofen (Baclofen), 1 TAB PO TID PRN for pain, (Reported) ONDANSETRON ODT 4mg tablet (Ondansetron Odt), 1 TAB PO Q6H PRN PRN for nausea/vomiting Past Medical History Past Medical History: Seizures, Hypertension, Asthma, Diabetes, Bipolar, Depression, Schizophrenia Past Surgical History: noncontributory Patient History: FH: cardiovascular disease FAMILY/OTHER, Name: Brother FH: emphysema FATHER, , Cause: Diabetes GRANDFATHER OR GRANDMOTHER FH: heart disease Brother FH: peptic ulcer GRANDFATHER OR GRANDMOTHER GRANDFATHER OR GRANDMOTHER Brother FHx: schizophrenia MOTHER Smoking Status: Former smoker Alcohol Use: Sober Drug Use: marijuana Lives with: Family Lives In: Home Review of Systems Constitutional: Denies: chills, fever, weakness Eyes: Denies: pain, blurred vision ENT: Denies: ear pain, nose pain, throat pain, mouth pain Respiratory: Denies: cough, shortness of breath Cardiovascular: Denies: chest pain, palpitations Gastrointestinal: Denies: abdominal pain, nausea, vomiting Genitourinary: Denies: burning, dysuria Female Genitalia: Denies: vaginal discharge, pelvic pain Neurological: Denies: headache, dizziness Musculoskeletal: Denies: pain, swelling Integumentary: Denies: rash, lesions Allergic/Immunologic: Denies: hives, itching Hematologic/Lymphatic: Denies: no symptoms reported Psychiatric: Denies: depression, anxiety Physical Exam Vital Signs: Temperature: 98.1, Source: Oral, Heart Rate: 52, Respiratory Rate: 16, BP: 156/75, Pulse Oximetry: 96, Weight: 123.640 Oxygen Flow Rate: 0 Physical Exam General: Awake and Alert, no acute distress. Patient appears tired and ill. HEENT: Conjunctiva pink, Sclera clear, Mucus Membranes moist. Neck: Supple without masses and tenderness. Resp: Unlabored. Lungs clear to auscultation bilaterally. Heart: Regular Rate and rhythm, normal S1 and S2 without murmur, rub or gallop. Abdomen: Patient on exam does have tenderness to palpation of the suprapubic area. I do not appreciate any other areas of tenderness of the abdomen. I do not appreciate any rebound tenderness or guarding. Extremities: No cyanosis,clubbing or edema. Skin: Warm and Dry. Progress Results/Orders Results/Orders Orders - COLE MARROQUIN PAC Saline Lock (12/12/24 ) Page Hospitalist (12/12/24 12:20) Fill Out Med Reconciliation (12/12/24 12:20) Ct Abdomen Pelvis (12/12/24 12:40) Completed Orders - COLE MARROQUIN PAC Normal Saline 1000ml (Sodium Chloride 10 (12/12/24 10:19) Ceftriaxone 2gm/D5w 50ml Bag (Rocephin 2 (12/12/24 10:19) Ketorolac Trometh 30mg/Ml Vial (Toradol (12/12/24 10:20) Acetaminophen 1,000mg/100ml Iv (Ofirmev (12/12/24 10:20) Prochlorperazine Inj (Compazine Inj) (12/12/24 12:35) Ct Abdomen Pelvis (12/12/24 12:40) Medications Received in ER Medications (Trade) Dose Ordered Sig/Dante Route PRN Reason Start Time Stop Time Status Last Admin Dose Admin (Compazine inj) 10 mg ONCE STAT IV 12/12/24 12:35 12/12/24 12:37 DC 12/12/24 13:40 10 MG Sodium Chloride 1,000 ml @ 125 mls/hr Q8H IV 12/12/24 12:40 12/12/24 13:40 125 MLS/HR Vital Signs 12/12/24 12/12/24 12/12/24 12/12/24 07:21 08:27 08:27 11:18 Temp 98.1 98.1 Pulse 89 52 Resp 18 16 16 16 B/P (MAP) 153/95 156/75 (102) Pulse Ox 98 96 O2 Flow Rate 0 0 Laboratory Tests Test 12/12/24 07:24 12/12/24 07:40 Urine Specimen Description Cln catch midstream Urine Color Yellow Urine Clarity Slightly cloudy Urine pH 8.0 Urine Specific [place] 1.010 Urine Protein 30 H Urine Glucose (UA) >=1000 H Urine Ketones 15 H Urine Occult Blood Large H Urine Nitrite Positive H Urine Bilirubin Negative Urine Urobilinogen 0.2 Urine Leukocyte Esterase Trace H Urine RBC Tntc Urine WBC 50-100 H Urine Squamous Epithelial Cells Moderate Urine Bacteria Few Urine Mucus Few Urine Culture Indicated Indicated Volume Urine Centrifuged 10 ml Urine Comment White Blood Count 11.9 H Red Blood Count 5.86 H Hemoglobin 17.6 H Hematocrit 52.0 H Mean Corpuscular Volume 88.9 Mean Corpuscular Hemoglobin 30.0 Mean Corpuscular Hemoglobin Concent 33.8 Red Cell Distribution Width 15.3 H Platelet Count 232 Mean Platelet Volume 7.6 Neutrophils (%) (Auto) 81.2 H Lymphocytes (%) (Auto) 13.6 L Monocytes (%) (Auto) 4.8 Eosinophils (%) (Auto) 0.1 Basophils (%) (Auto) 0.3 Neutrophils # (Auto) 9.7 H Lymphocytes # (Auto) 1.6 Monocytes # (Auto) 0.6 Eosinophils # (Auto) 0.0 Basophils # (Auto) 0.0 CBC Comment Sodium Level 139 Potassium Level 4.0 Chloride Level 99 Carbon Dioxide Level 23.7 L Anion Gap 16 Blood Urea Nitrogen 20 H Creatinine 1.06 H Estimated GFR/1.73 m2 54 BUN/Creatinine Ratio 18.9 Glucose Level 281 H Hemoglobin A1c 8.4 H Lactic Acid Level 2.8 H Calcium Level 9.8 Total Bilirubin 0.5 Aspartate Amino Transf (AST/SGOT) 12 Alanine Aminotransferase (ALT/SGPT) 9 L Alkaline Phosphatase 79 Total Protein 8.6 H Albumin 3.7 Globulin 4.9 H Albumin/Globulin Ratio 0.8 L Triglycerides Level 351 H Cholesterol Level 142 LDL Cholesterol 57 HDL Cholesterol 43 Cholesterol/HDL Ratio 3.3 Lipase 32 Chemistry Comments Microbiology Date/Time Source Procedure Growth Status 12/12/24 08:06 Urine Clean Catch Midstream Urine Culture - Preliminary Culture received. Resulted EKG/XRAY/CT/US/VASC/MRI CT : Impression CAT SCAN Patient: SERGEY GRIGGS Medical Record: [id number] [facility] : 1970, Age: 54 Sex: Female Location: ED HOLD Patient Status: ADM IN Service Date/Time: 12/12/240 Ordering Physician: COLE MARROQUIN PAC Exam: CT ABDOMEN PELVIS Exam: CT CT ABDOMEN PELVIS W/ IV CONTRAST History: flank pain Comparison Study: CT CT ABDOMEN PELVIS on DOS: 09/27/24, CT CT ABDOMEN PELVIS on DOS: 08/30/24, CT ABDOMEN PELVIS on DOS: 02/19/22 TECHNIQUE: Multidetector CT of the abdomen and pelvis with IV contrast. Axial, coronal and sagittal multiplanar reformats were obtained from the axial data set by the technologist. Radiation Dose Information: CT Dose: CTDI volume is 33.39 mGy. Dose-length product is 2024.01 mGy*cm FINDINGS: The lung bases are clear. Partially visualized heart is unremarkable. Subtle 1 cm hypodense hepatic lesion which does not measure simple fluid not well-visualized on the prior noncontrast CTs. Mild hepatomegaly. Spleen, gallbladder, pancreas and adrenal glands are unremarkable. Small splenule is noted adjacent to the spleen. Multiple small nonobstructing bilateral renal calculi, largest on the right measuring up to 6 mm and largest on the left measuring up to 6 mm. Subcentimeter hypodense left renal lesion that is too small to characterize. Mild right-sided hydro ureteral nephrosis with minimal fat stranding adjacent to the right renal pelvis and right ureter with no obstructing calculus noted. Mild left pelviectasis. The left ureter is unremarkable. Mild wall thickening of the urinary bladder which is most likely from inadequate distension. Uterus and adnexa are unremarkable. Air within the distal esophagus extending into the stomach. Mild gastric wall thickening. Mild wall Thickening of proximal small bowel loops. Remainder of the small bowel loops unremarkable. Appendix is unremarkable. Minimal wall thickening of the ascending colon. The remainder of the large bowel is unremarkable. No evidence of intraperitoneal free air or free fluid. No evidence of aortic aneurysm. Mild atherosclerotic calcification of the aorta and bilateral iliacs. No significant lymphadenopathy. Tiny fat containing umbilical hernia. No destructive osseous lesions are noted. Old left posterior rib 11 fracture. IMPRESSION: Mild gastroenteritis involving the stomach and proximal small bowel loops. Mild right hydro ureteral nephrosis with minimal fat stranding adjacent to the right renal pelvis and right ureter no obstructing calculus noted. Recently passed calculus can not be excluded. Correlate with laboratory values for possible infectious process. Mild wall thickening of the urinary bladder which is most likely from inadequate distension. Correlation with urinalysis is recommended to exclude cystitis. Minimal wall thickening of the ascending colon which may be due to inadequate distention/colitis. Bilateral nonobstructing renal calculi. 1 cm hypodense hepatic lesion. Hepatic protocol CT/MRI may be considered for further evaluation. Electronically Signed by:KAJAL SUBRAMANIAN DO Date & Time: 12/12/241405 Dictated by: MARILYNNKAJAL C DO Dictation date and time: 12/12/24 1406 Primary Care Provider: NO PRIMARY CARE PROVIDER cc: COLE MARROQUIN ~ Medical Decision Making Findings Patient is seen today with her with complaints of feeling very ill and weak with urinary symptoms of dysuria and urgency and frequency as well as flank pain and lower abdominal pain and low back pain. Patient denies any chest pain or shortness of breath or diarrhea but patient does admit to nausea and vomiting. Patient does admit to history of urinary tract infections requiring hospitalization. Patient has no other concern or complaint at this time. Patient did show leukocytosis on CBC with left shift. UA did show positive for nitrites and concerning for urinary tract infection was sent for culture. Patient was given Tylenol IV 1000 mg, Toradol 30 mg IV, Rocephin 2 g IV, after administration of medications, the patient still is not feeling better and feels nauseous and vomited once. Patient will be admitted to the hospital. Hospitalist was consulted. Departure Disposition: ADMITTED INPATIENT Admitted to Inpatient Unit: to hospitalist Impression: Primary Impression: Acute pyelonephritis Condition: Stable Discharge Instructions: Pyelonephritis, Adult Additional Instructions: Patient did show leukocytosis on CBC with left shift. UA did show positive for nitrites and concerning for urinary tract infection was sent for culture. Patient was given Tylenol IV 1000 mg, Toradol 30 mg IV, Rocephin 2 g IV, after administration of medications, the patient still is not feeling better and feels nauseous and vomited once. Patient will be admitted to the hospital. Hospitalist was consulted. Referrals: NO PRIMARY CARE PROVIDER (PCP) Signature Scribe Signature: No scribe Attestation: No scribe COLE MARROQUIN December 12, 2024 12:39
[2024-12-12] MEDS ORDERED: morphine 2 MG/ML inj. syringe IV PRN ×2 (12:40)
[2024-12-12] MEDS ORDERED: magnesium sulf-water 2g/50mL 50 ML IV PRN (12:40)
[2024-12-12] MEDS ORDERED: magnesium Cl slow-release 64mg tablet PO PRN (12:40)
[2024-12-12] MEDS ORDERED: potassium Cl 20 mEq SR tablet PO PRN (12:40)
[2024-12-12] MEDS ORDERED: magnesium sulf-water 4G/100mL 100 ML IV PRN (12:40)
[2024-12-12] MEDS ORDERED: potassium Cl 40MEQ/1/2NS 520ml 520 ML IV PRN (12:40)
[2024-12-12] MEDS ORDERED: HYDROcodone/acetaminophen 5mg/325mg tablet PO PRN (12:40)
[2024-12-12] MEDS ORDERED: acetaminophen 325mg tablet PO PRN (12:40)
[2024-12-12] MEDS ORDERED: glucagon, human recombinant 1mg kit SUBCUT PRN (12:45)
[2024-12-12] MEDS ORDERED: dextrose 50%-water 50ml dispensing syringe IV PRN ×2 (12:45)
[2024-12-12] MEDS ORDERED: DEXTROSE 15 GM of carb/4 tabs (each vial/BOTTLE has 4 tablets) PO PRN ×2 (12:45)
[2024-12-12 13:07] LABS: CHOL/HDL RATIO 3.3 (0.00-4.99); CHOLESTEROL 142 MG/DL (0-200); HDL CHOLESTEROL 43 MG/DL (35-60); LDL CHOLESTEROL 57 MG/DL (50-100); TRIGLYCERIDES 351 MG/DL (20-135)
[2024-12-12] MEDS ORDERED: iohexol 300mg/ml 100ml inj. ONE (13:10)
[2024-12-12 13:33] LABS: HEMOGLOBIN A1C 8.4 % (4.5-6.2)
[2024-12-12] MEDS: proCHLORperazine 10 MG/2 ml inj IV STA (13:40)
[2024-12-12] MEDS: normal saline 1000ml 1,000 ML IV SCH (13:40)
--- NOTE | 2024-12-12 14:09 | RADIOLOGY REPORT ---
Exam: CT CT ABDOMEN PELVIS W/ IV CONTRAST History: flank pain Comparison Study: CT CT ABDOMEN PELVIS on DOS: 09/27/24, CT CT ABDOMEN PELVIS on DOS: 08/30/24, CT ABDO MEN PELVIS on DOS: 02/19/22 TECHNIQUE: Multidetector CT of the abdomen and pelvis with IV contrast. Axial, coronal and sagittal m ultiplanar reformats were obtained from the axial data set by the technologist. Radiation Dose Information: CT Dose: CTDI volume is 33.39 mGy. Dose-length product is 2024.01 mGy*cm FINDINGS: The lung bases are clear. Partially visualized heart is unremarkable. Subtle 1 cm hypodense hepatic lesion which does not measure simple fluid not well-visualized on the p rior noncontrast CTs. Mild hepatomegaly. Spleen, gallbladder, pancreas and adrenal glands are unremar kable. Small splenule is noted adjacent to the spleen. Multiple small nonobstructing bilateral renal calculi, largest on the right measuring up to 6 mm and largest on the left measuring up to 6 mm. Subcentimeter hypodense left renal lesion that is too small to characterize. Mild right-sided hydro ureteral nephrosis with minimal fat stranding adjacent to th e right renal pelvis and right ureter with no obstructing calculus noted. Mild left pelviectasis. Th e left ureter is unremarkable. Mild wall thickening of the urinary bladder which is most likely from inadequate distension. Uterus and adnexa are unremarkable. Air within the distal esophagus extending into the stomach. Mild gastric wall thickening. Mild wall Thickening of proximal small bowel loops. Remainder of the small bowel loops unremarkable. Appendix is unremarkable. Minimal wall thickening of the ascending colon. The remainder of the large bowel is unremarkable. No evidence of intraperitoneal free air or free fluid. No evidence of aortic aneurysm. Mild atherosclerotic calcification of the aorta and bilateral iliacs . No significant lymphadenopathy. Tiny fat containing umbilical hernia. No destructive osseous lesions are noted. Old left posterior ri b 11 fracture. IMPRESSION: Mild gastroenteritis involving the stomach and proximal small bowel loops. Mild right hydro ureteral nephrosis with minimal fat stranding adjacent to the right renal pelvis and right ureter no obstructing calculus noted. Recently passed calculus can not be excluded. Correlate with laboratory values for possible infectious process. Mild wall thickening of the urinary bladder which is most likely from inadequate distension. Correla tion with urinalysis is recommended to exclude cystitis. Minimal wall thickening of the ascending colon which may be due to inadequate distention/colitis. Bilateral nonobstructing renal calculi. 1 cm hypodense hepatic lesion. Hepatic protocol CT/MRI may be considered for further evaluation.
--- NOTE | 2024-12-12 14:40 | HISTORY AND PHYSICAL-Residence ---
History & Physical Providers to Resident Creating Document: RAÚL ESPINOZA, RES ~ History of Present Illness Primary Medical Doctor: Dr. Cain. Reason for Admit\Complaint: Pain abdomen-, vomiting, History of Present Illness 54-year-old female with a past medical history of type 2 diabetes mellitus, COPD, seizures, schizoaffective bipolar disorder, psoriasis, hypertension, chronic lower back pain presented to the ER with complaints of vomitings. Endorses vomitings for more than 10 episodes from the last night, watery, not associated with hematemesis,. Reports abdominal pain, very severe, 10/10 more on the right lumbar region than the left lumbar region for the past one day. Endorses hematuria for the past couple of days. Endorses painful micturition for the past two days. He had a recent admission in September at [facility] for the same complaints. Denied shortness of breathe,, chest pain, palpitations, abdominal distention, decreased urine output. Reports use of marijuana. Allergies: Coded Allergies: ibuprofen (Unverified Allergy, Unknown, 12/12/24) Home Medications Home Medications Active Ondansetron Odt (Ondansetron HCl) 4 Mg Tab.rapdis 1 Tab PO Q6H PRN PRN 4 Days Venlafaxine HCl ER (Venlafaxine HCl) 75 Mg Tab.er.24 1 Tab PO DAILY 14 Days Trazodone HCl 100 Mg Tablet 2 Tab PO HS Reported Mounjaro (Tirzepatide) 2.5 Mg/0.5 Ml Pen.injctr 1 Unit INJ Q7D Jardiance (Empagliflozin) 25 Mg Tablet 1 Tab PO QAM Baclofen 20 Mg Tablet 1 Tab PO TID PRN Effexor Xr (Venlafaxine HCl) 150 Mg Cap.er.24h 1 Cap PO DAILY 30 Days Crestor* (Rosuvastatin Calcium) 20 Mg Tablet 1 Tab PO HS 30 Days Famotidine 20 Mg Tablet 1 Tab PO DAILY Prazosin Hcl 2 Mg Capsule 1 Cap PO HS Vitamin D2 (Ergocalciferol (Vitamin D2)) 1,250 Mcg Capsule 1 Cap PO Q7D ON SATURDAYS Depakote ER* (Divalproex Sodium) 500 Mg Tab.sr.24h 3 Tab PO HS Ziprasidone Hcl 80 Mg Capsule 2 Cap PO HS Ziprasidone Hcl 40 Mg Capsule 1 Cap PO QAM Metformin HCl 1,000 Mg Tablet 1 Tab PO Q12H 30 Days Topiramate 50 Mg Tablet 2 Tab PO Q12H 30 Days Past Medical History Past Medical History Diabetes mellitus type 2 COPD Schizoaffective bipolar disorder Seizures diagnosed 12 years ago Psoriasis Hypertension Chronic lower backache Per patient's - Right elbow blockage of vein or artery( could not able to tell clearly but reports problem near the elbow and endorses that surgery needs to be done for the problem) Past Surgical History Surgical History Comment Cadaveric bone placement in her right arm nine years ago Bilateral ankle repair surgeries nine years ago Family History Family History: FH: cardiovascular disease FAMILY/OTHER, Name: Brother FH: emphysema FATHER, , Cause: Diabetes GRANDFATHER OR GRANDMOTHER FH: heart disease Brother FH: peptic ulcer GRANDFATHER OR GRANDMOTHER GRANDFATHER OR GRANDMOTHER Brother FHx: schizophrenia MOTHER Past Social History Social History Comment PCP: Dr. Cain Follows up with neurologist, psychiatrist and a counselor, names unknown. Lives in home with , brother and son. Ambulates without assistance. Denies cigarette smoking and meth abuse. Social drinker. Admits to smoking weed. Alcohol Use: Sober Drug Use: Marijuana Lives with: Family Lives In: Home Smoking: Non-Smoker Alcohol Use: Sober Drug Use: Marijuana Lives with: Family Lives In: Home ROS All Other Systems: Reviewed and Negative ROS Reviewed in full and negative except positive pertinent as in the HPI Constitutional: Denies: chills, fever, weakness Eyes: Denies: pain, blurred vision ENT: Denies: ear pain, nose pain, throat pain, mouth pain Respiratory: Denies: cough, shortness of breath Cardiovascular: Denies: chest pain, palpitations Gastrointestinal: Denies: abdominal pain, nausea, vomiting Genitourinary: Denies: burning, dysuria Neurological: Denies: headache, dizziness Musculoskeletal: Denies: pain, swelling Integumentary: Denies: rash, lesions Allergic/Immunologic: Denies: hives, itching Hematologic/Lymphatic: Denies: no symptoms reported Psychiatric: Denies: depression, anxiety Exam Vitals: Vital Signs Date Time Temp Pulse Resp B/P (MAP) Pulse Ox O2 Delivery O2 Flow Rate FiO2 12/12/24 13:57 98.1 92 16 144/91 (108) 96 0 General: Adult female, morbidly obese, alert and oriented x4, in mild distress Head: Normocephalic with an atraumatic Eyes: Pupils- 3mm, reacting to light, conjunctiva- anicteric Nose and throat: No polyps, septum- normal, no mucosal ulcers Neck: Supple, no lymphadenopathy, no carotid bruit Respiratory: No use of accessory muscles of respiration, Bilateral normal vesicular breath sounds heard. No wheeze, rhochi or creps Cardiac: S1-S2 heard, rhythm regular, no gallop/murmur Abdomen: Soft, non distended, tenderness in right and left upper quadrants, no organomegaly, bowel sounds - heard Extremities: no clubbing, no pedal edema, no deformities, peripheral pulses - 2+ Skin: warm and dry, silvery plaques on bilateral shins, no purpura Neuro: No focal deficit, gross cranial nerve exam - normal Diagnostic Data Last Recorded Lab Results: 12/12/24 0740 12/12/24 0740 Advance Care Planning Advanced Care planning: Add on additional 30 min Additional Plan The patient is a 54-year-old female, presented the hospital with complaints of nausea, vomiting and abdominal pain. She is being admitted into the hospital for the management of UTI with sepsis, cyclical vomitings syndrome Plan: UTI with sepsis Right hydroureteronephrosis with possible right pyelonephritis Blood pressures are running in 130s and 140 WBC counts are elevated and hemoglobin is mildly elevated with a hematocrit of 52 suggestive of polycythemia secondary to dehydration. Serum creatinine is elevated and lactic acid is elevated Patient received one dose of ceftriaxone and normal saline bolus of 1 L On ceftriaxone 2 g dose and on 08/11 mL/hour normal saline Urinalysis positive for UTI Tox is ordered Strain urine is ordered Uncontrolled hyperglycemia 2/2 Type 2 diabetes mellitus Poor drug compliance A1c is 8.4, glucose is 281 and mild urine ketones are positive. On insulin low-dose supplemental protocol. Started on normal saline at the rate of 125 mL/hour. Continue to monitor blood sugars with a target of 140-180 Cyclical vomiting syndrome Marijuana use Received prochlorperazine 10 mg IV one dose Continue Zofran 4 mg q.6 H p.r.n. Started her on Protonix 40 mg daily representative phlebotomy services consulted. CEM likely secondary to renal tubular stasis, 2/2 UTI with sepsis Creatinine 1.06, elevated Received 1 L of normal saline bolus and then on 08/11 mL/hour normal saline Polycythemia likely secondary to dehydration On IV normal saline at the rate of 125 mL/hour s. Seizures Bipolar disorder - schizoaffective Chronic lower back pain We will continue home medications of topiramate, valproic acid trazodone, venlafaxine, Ziprasidone. Received olanzapine. Morbid obesity, BMI 42.9 Needs to follow up with primary care physician and obesity physician On [facility] at home. Code Status: Full code DVT Prophylaxis: Heparin subQ Analgesia/Sedation: Morphine and [place] Lines/Tubes: PIV GI Prophylaxis: Protonix Nutrition: Clear liquid diet PT: Ordered Date of Service: December 12, 2024 Billing Provider: ZEV PRIETO MD Common Visit Codes: [id number] INP/OBS CARE (HIGH) Secondary Visit Codes: [id number] CARE PLAN 30 MINUTES RAÚL ESPINOZA, RES December 12, 2024 14:40 ZEV PRIETO MD December 12, 2024 18:57
[2024-12-12] MEDS: INSULIN LISPRO 100 UNIT/ML INSULN.PEN MULTI-DOSE SQ SCH (18:38)
[2024-12-12] MEDS: pantoprazole 40 MG vial IV SCH (19:50)
[2024-12-12] MEDS: heparin, porcine 5000 units/ml vial SQ SCH (19:50)
[2024-12-12] MEDS: acetaminophen 325mg tablet PO PRN (21:57)
[2024-12-12] MEDS: ondansetron/PF 4mg/2ml inj IV PRN (22:00)
[2024-12-13] VITALS: BP 96/59; PULSE 83; RESP 17; TEMP 98.2; O2SAT 92
[2024-12-13] MEDS: HYDROcodone/acetaminophen 10/325mg tab PO PRN (01:02)
[2024-12-13 05:52] LABS: BASOPHILS # (AUTO) 0.1 X10'3 (0-0.2); BASOPHILS % (AUTO) 0.7 % (0-1); EOSINOPHILS % (AUTO) 0.1 % (0-6); HEMATOCRIT 44.4 % (35.0-45.0); HEMOGLOBIN 15.1 g/dl (12.0-16.0); LYMPHOCYTES # (AUTO) 3.2 X10'3 (1.1-4.8); LYMPHOCYTES % (AUTO) 37.7 % (21-51); MEAN CORPUSCULAR HEMOGLOBIN 30.3 PG (27.0-31.0); MEAN CORPUSCULAR HGB CONC 33.9 g/dL (33.0-36.5); MEAN CORPUSCULAR VOLUME 89.4 FL (78-98); MEAN PLATELET VOLUME 7.7 FL (7.4-10.4); MONOCYTES # (AUTO) 0.6 X10'3 (0-0.9); MONOCYTES % (AUTO) 6.7 % (2-12); NEUTROPHILS # (AUTO) 4.7 X10'3 (1.8-7.7); NEUTROPHILS % (AUTO) 54.8 % (42-75); PLATELET COUNT 201 X10'3 (140-440); RED BLOOD COUNT 4.97 X10'6 (4.20-5.60); RED CELL DISTRIBUTION WIDTH 15.2 % (11.5-14.5); WHITE BLOOD COUNT 8.6 X10'3 (4.5-11.0)
[2024-12-13 06:00] VITALS: BP 101/58; PULSE 74; RESP 17; TEMP 98; O2SAT 95
[2024-12-13 06:03] LABS: ALANINE AMINOTRANSFERASE 11 U/L (12-78); ALBUMIN 2.8 G/DL (3.4-5.0); ALBUMIN/GLOBULIN RATIO 0.7 (1.1-1.5); ALKALINE PHOSPHATASE 62 IU/L (46-116); ANION GAP 7 (8-16); ASPARTATE AMINO TRANSFERASE 7 U/L (10-37); BILIRUBIN,TOTAL 0.3 MG/DL (0.1-1.0); BLOOD UREA NITROGEN 25 MG/DL (7-18); BUN/CREATININE RATIO 23.4 (10.0-20.0); CALCIUM 8.5 MG/DL (8.5-10.1); CHLORIDE 109 MMOL/L (99-107); CREATININE 1.07 MG/DL (0.40-0.90); GLUCOSE 97 MG/DL (70-104); POTASSIUM 3.4 MMOL/L (3.5-5.1); SODIUM 144 MMOL/L (135-145); TOTAL CARBON DIOXIDE 28.4 MMOL/L (24-32); TOTAL PROTEIN 6.8 G/DL (6.4-8.2); eCRCL 55 ML/MIN; eGFR 54 ML/MIN
[2024-12-13 06:49] LABS: URINE AMPHETAMINE SCREEN NEGATIVE (Neg); URINE BARBITUATE SCREEN NEGATIVE (Neg); URINE BENZODIAZEPINES SCREEN NEGATIVE (Neg); URINE CANNABINOID SCREEN POSITIVE (Neg); URINE COCAINE SCREEN NEGATIVE (Neg); URINE METHADONE SCREEN NEGATIVE (Neg); URINE OPIATE SCREEN POSITIVE (Neg); URINE PHENCYCLIDINE SCREEN NEGATIVE (Neg)
[2024-12-13] MEDS: CefTRIAXone 2gm/D5W 50ml BAG 50 ML IV SCH (07:19)
[2024-12-13] MEDS: potassium Cl 20 mEq SR tablet PO PRN (07:24)
[2024-12-13 10:00] VITALS: BP 94/54; PULSE 65; RESP 18; TEMP 97; O2SAT 97
[2024-12-13] MEDS: nystatin 15 GM powder TP SCH (13:40)
[2024-12-13 18:00] VITALS: BP 112/61; PULSE 65; RESP 16; TEMP 97.4; O2SAT 98
--- NOTE | 2024-12-13 18:58 | PROGRESS NOTE- Residence ---
Progress Note - Resident Providers to CC Resident Creating Document: DARRENKEILAOK RES ~ Antibiotic Timeout Antibiotic Ordered?: Yes Subjective Seen and examined the patient at bedside. She is improving with the vomiting, abdominal pain. No new complaints. Objective Vital Signs Date Time Temp Pulse Resp B/P (MAP) Pulse Ox O2 Delivery O2 Flow Rate FiO2 12/13/24 17:05 16 12/13/24 10:00 97.0 65 94/54 (67) 97 Room Air 12/13/24 08:00 0.0 Result Diagram: 12/13/24 0511 12/13/24 0511 Adult female, morbidly obese, alert and oriented x4, in mild distress Head: Normocephalic with an atraumatic Eyes: Pupils- 3mm, reacting to light, conjunctiva- anicteric Nose and throat: No polyps, septum- normal, no mucosal ulcers Neck: Supple, no lymphadenopathy, no carotid bruit Respiratory: No use of accessory muscles of respiration, Bilateral normal vesicular breath sounds heard. No wheeze, rhochi or creps Cardiac: S1-S2 heard, rhythm regular, no gallop/murmur Abdomen: Soft, non distended, reduced tenderness in right and left upper quadrants, no organomegaly, bowel sounds - heard Extremities: no clubbing, no pedal edema, no deformities, peripheral pulses - 2+ Skin: warm and dry, silvery plaques on bilateral shins, no purpura Neuro: No focal deficit, gross cranial nerve exam - normal Advance Care Planning Advanced Care plannin - 30 Minutes Assessment Assessment The patient is a 54-year-old female, presented the hospital with complaints of nausea, vomiting and abdominal pain. She is being admitted into the hospital for the management of UTI with sepsis, cyclical vomitings syndrome. Plan Plan Plan: UTI with sepsis Right hydroureteronephrosis with possible right pyelonephritis Blood pressures are running in 130s and 140 WBC counts are elevated and hemoglobin is mildly elevated with a hematocrit of 52 suggestive of polycythemia secondary to dehydration. Serum creatinine is elevated and lactic acid is elevated Patient received one dose of ceftriaxone and normal saline bolus of 1 L On ceftriaxone 2 g dose and on 08/11 mL/hour normal saline Urinalysis positive for UTI Tox is ordered Strain urine is ordered 12/13/2024 -blood pressure is on lower side bed with a map of 67-72. CBC is improved . Creatinine is stable. Potassium is little bit on the lower side. Continuing IV normal saline 100 mL/hour. Continuing ceftriaxone. We do not think patient needs the urology consultation as it is bilateral nonobstructive renal calculi. Images is showing the stone is passed. And she may likely need outpatient follow up with Urology. Uncontrolled hyperglycemia 2/2 Type 2 diabetes mellitus Poor drug compliance A1c is 8.4, glucose is 281 and mild urine ketones are positive. On insulin low-dose supplemental protocol. Started on normal saline at the rate of 125 mL/hour. Continue to monitor blood sugars with a target of 140-180 12/13/2024 Blood glucose is maintaining around 140 with low-dose insulin supplemental protocol. It was within the target range and we will continue to monitor blood sugars with a target of 140-180 Cyclical vomiting syndrome Marijuana use Received prochlorperazine 10 mg IV one dose Continue Zofran 4 mg q.6 H p.r.n. Started her on Protonix 40 mg daily environmental services floor tech consulted. CEM likely secondary to renal tubular stasis, 2/2 UTI with sepsis Creatinine 1.06, elevated Received 1 L of normal saline bolus and then on 08/11 mL/hour normal saline 12/13/2024: Creatinine is stable. And we are continuing 100 mL/hour IV normal saline Polycythemia likely secondary to dehydration On IV normal saline at the rate of 105 mL/hour s. Hepatic lesion 1 cm hypodense hepatic lesion Patient may need the triple phase CT/MRI for further follow up Seizures Bipolar disorder - schizoaffective Chronic lower back pain Are continuing home medications of divalproex of 1500 mg p.o. HS, topiramate 100 p.o. b.i.d., trazodone 100 mg and venlafaxine 75 mg, Ziprasidone 40, 160 mg doses. Received olanzapine. Morbid obesity, BMI 42.9 Needs to follow up with primary care physician and obesity physician On [facility] at home. Code Status: Full code DVT Prophylaxis: Heparin subQ Analgesia/Sedation: Morphine and [place] Lines/Tubes: PIV GI Prophylaxis: Famotidine Nutrition: Clear liquid diet PT: Ordered,triage [facility] resident Date of Service: December 13, 2024 Billing Provider: ZEV PRIETO MD Common Visit Codes: [id number] INP/OBS CARE(HIGH) [place] ESPINOZA, RES December 13, 2024 18:58 ZEV PRIETO MD December 13, 2024 19:04
[2024-12-13 20:00] VITALS: RESP 16; O2SAT 98
[2024-12-13] MEDS: traZODone 50mg tablet PO SCH (20:07)
[2024-12-13] MEDS: ziprasidone 20mg capsule PO SCH (20:07)
[2024-12-13] MEDS: atorvastatin 20mg tablet PO SCH (20:07)
[2024-12-13] MEDS: divalproex sod 250mg ER (24-hour) tablet PO SCH (20:07)
[2024-12-13] MEDS: prazosin 1mg capsule PO SCH (20:08)
[2024-12-13] MEDS: topiramate 100mg tablet PO SCH (20:08)
[2024-12-13 22:00] VITALS: BP 96/54; PULSE 86; RESP 18; TEMP 98; O2SAT 100
[2024-12-14 05:07] LABS: BASOPHILS % (AUTO) 0.6 % (0-1); EOSINOPHILS % (AUTO) 0.7 % (0-6); HEMATOCRIT 42.3 % (35.0-45.0); HEMOGLOBIN 14.3 g/dl (12.0-16.0); LYMPHOCYTES # (AUTO) 2.8 X10'3 (1.1-4.8); LYMPHOCYTES % (AUTO) 48.5 % (21-51); MEAN CORPUSCULAR HEMOGLOBIN 29.9 PG (27.0-31.0); MEAN CORPUSCULAR HGB CONC 33.7 g/dL (33.0-36.5); MEAN CORPUSCULAR VOLUME 88.7 FL (78-98); MEAN PLATELET VOLUME 7.3 FL (7.4-10.4); MONOCYTES # (AUTO) 0.4 X10'3 (0-0.9); MONOCYTES % (AUTO) 6.3 % (2-12); NEUTROPHILS # (AUTO) 2.6 X10'3 (1.8-7.7); NEUTROPHILS % (AUTO) 43.9 % (42-75); PLATELET COUNT 177 X10'3 (140-440); RED BLOOD COUNT 4.77 X10'6 (4.20-5.60); RED CELL DISTRIBUTION WIDTH 14.9 % (11.5-14.5); WHITE BLOOD COUNT 5.8 X10'3 (4.5-11.0)
[2024-12-14 05:14] LABS: ALANINE AMINOTRANSFERASE 13 U/L (12-78); ALBUMIN 2.4 G/DL (3.4-5.0); ALBUMIN/GLOBULIN RATIO 0.7 (1.1-1.5); ALKALINE PHOSPHATASE 52 IU/L (46-116); ANION GAP 7 (8-16); ASPARTATE AMINO TRANSFERASE 15 U/L (10-37); BILIRUBIN,TOTAL 0.2 MG/DL (0.1-1.0); BLOOD UREA NITROGEN 19 MG/DL (7-18); BUN/CREATININE RATIO 21.1 (10.0-20.0); CALCIUM 8.2 MG/DL (8.5-10.1); CHLORIDE 111 MMOL/L (99-107); GLUCOSE 120 MG/DL (70-104); POTASSIUM 3.9 MMOL/L (3.5-5.1); SODIUM 144 MMOL/L (135-145); TOTAL CARBON DIOXIDE 26.3 MMOL/L (24-32); TOTAL PROTEIN 5.8 G/DL (6.4-8.2); eCRCL 65 ML/MIN; eGFR 65 ML/MIN
[2024-12-14 06:39] VITALS: BP 110/70; PULSE 64; RESP 16; TEMP 97.8; O2SAT 98
[2024-12-14] MEDS: venlafaxine XR 75mg capsule (Q24H) PO SCH (07:57)
[2024-12-14] MEDS: famotidine 20mg tablet PO SCH (07:57)
[2024-12-14 10:00] VITALS: BP 97/67; PULSE 72; RESP 16; TEMP 97.8; O2SAT 96
[2024-12-14 11:16] LABS: HBSAG SCREEN Negative (Negative); HEP B CORE AB, IGM Negative (Negative); HEP B CORE AB, TOT Negative (Negative)
[2024-12-14] MEDS: ziprasidone 20mg capsule PO SCH (12:19)
[2024-12-14] MEDS: EMPAGLIFLOZIN 25 MG TABLET PO SCH (12:19)
[2024-12-14] MEDS ORDERED: LEVO-65 PO (13:22)
[2024-12-14] MEDS ORDERED: NYSPWD TP (13:23)
--- NOTE | 2024-12-14 17:55 | DISCHARGE SUMMARY-Residence ---
Discharge Summary Providers to CC Resident Creating Document: RAÚL ESPINOZA RES ~ Discharge Summary Admission Diagnosis: possible pyelonephritis , DM , dehydration Hospital Course DATE OF ADMISSION: 12/12/2024 DATE OF DISCHARGE: 12/14/2024 CT abdomen pelvis on 12/12/24 FINDINGS: The lung bases are clear. Partially visualized heart is unremarkable. Subtle 1 cm hypodense hepatic lesion which does not measure simple fluid not well-visualized on the prior noncontrast CTs. Mild hepatomegaly. Spleen, gallbladder, pancreas and adrenal glands are unremarkable. Small splenule is noted adjacent to the spleen. Multiple small nonobstructing bilateral renal calculi, largest on the right measuring up to 6 mm and largest on the left measuring up to 6 mm. Subcentimeter hypodense left renal lesion that is too small to characterize. Mild right-sided hydro ureteral nephrosis with minimal fat stranding adjacent to the right renal pelvis and right ureter with no obstructing calculus noted. Mild left pelviectasis. The left ureter is unremarkable. Mild wall thickening of the urinary bladder which is most likely from inadequate distension. Uterus and adnexa are unremarkable. Air within the distal esophagus extending into the stomach. Mild gastric wall thickening. Mild wall Thickening of proximal small bowel loops. Remainder of the small bowel loops unremarkable. Appendix is unremarkable. Minimal wall thic kening of the ascending colon. The remainder of the large bowel is unremarkable. No evidence of intraperitoneal free air or free fluid. No evidence of aortic aneurysm. Mild atherosclerotic calcification of the aorta and bilateral iliacs. No significant lymphadenopathy. Tiny fat containing umbilical hernia. No destructive osseous lesions are noted. Old left posterior rib 11 fracture. IMPRESSION: Mild gastroenteritis involving the stomach and proximal small bowel loops. Mild right hydro ureteral nephrosis with minimal fat stranding adjacent to the right renal pelvis and right ureter no obstructing calculus noted. Recently pas sed calculus can not be excluded. Correlate with laboratory values for possible infectious process. Mild wall thickening of the urinary bladder which is most likely from inadequate distension. Correlation with urinalysis is recommended to exclude cystitis. Minimal wall thickening of the ascending colon which may be due to inadequate distention/colitis. Bilateral nonobstructing renal calculi. 1 cm hypodense hepatic lesion. Hepatic protocol CT/MRI may be considered for further evaluation. Discharge Diagnosis\Comment: UTI Sepsis Right hydroureteronephrosis Right pyelonephritis Uncontrolled hyperglycemia Type 2 diabetes mellitus Medication noncompliance Marijuana use Cannabis hyperemesis syndrome CEM 2/2 renal tubular stasis Polycythemia Dehydration Seizures Bipolar disorder- Schizoaffective disorder Chronic lower back pain Morbid obesity with BMI of 42.9 Operations\Procedures: None Consultants: Dr. Schmid, urologist Complications: None Condition on DC: Stable New Medications: Levofloxacin (Levofloxacin) 500 Mg Tablet 500 MG PO DAILY for 10 Days, #10 TAB Nystatin (NYSTOP powder) 100,000 Unit/Gram Gra 1 APPLIC TP TID for 30 Days, #1 BOT Continued Medications: Baclofen (Baclofen) 20 Mg Tablet 1 TAB PO TID PRN for pain Divalproex ER* (Depakote ER*) 500 Mg Tab.sr.24h 3 TAB PO HS Empagliflozin (Jardiance) 25 Mg Tablet 1 TAB PO QAM Ergocalciferol (Vitamin D2) (Vitamin D2) 1,250 Mcg Capsule 1 CAP PO Q7D ON SATURDAYS Famotidine (Famotidine) 20 Mg Tablet 1 TAB PO DAILY, TAB 0 Refills Metformin HCl (Metformin HCl) 1,000 Mg Tablet 1 TAB PO Q12H for 30 Days, #60 TAB ONDANSETRON ODT 4mg tablet (Ondansetron Odt) 4 Mg Tab.rapdis 1 TAB PO Q6H PRN PRN for nausea/vomiting for 4 Days, #16 TAB 0 Refills Prazosin Hcl (Prazosin Hcl) 2 Mg Capsule 1 CAP PO HS, CAP 0 Refills Rosuvastatin Calcium* (Crestor*) 20 Mg Tablet 1 TAB PO HS for 30 Days, #30 TAB Topiramate (Topiramate) 50 Mg Tablet 2 TAB PO Q12H for 30 Days, #60 TAB 0 Refills Trazodone HCl (Trazodone HCl) 100 Mg Tablet 2 TAB PO HS, #28 TAB 0 Refills Venlafaxine HCl (Effexor Xr) 150 Mg Cap.er.24h 1 CAP PO DAILY for 30 Days, #30 CAP 0 Refills Venlafaxine HCl (Venlafaxine HCl ER) 75 Mg Tab.er.24 1 TAB PO DAILY for 14 Days, #14 TAB 0 Refills Ziprasidone Hcl (Ziprasidone Hcl) 40 Mg Capsule 1 CAP PO QAM Ziprasidone Hcl (Ziprasidone Hcl) 80 Mg Capsule 2 CAP PO HS Discharge Summary: HPI at the time of admission 54-year-old female with a past medical history of type 2 diabetes mellitus, COPD, seizures, schizoaffective bipolar disorder, psoriasis, hypertension, chronic lower back pain presented to the ER with complaints of vomitings. Endorses vomitings for more than 10 episodes from the last night, watery, not as sociated with hematemesis,. Reports abdominal pain, very severe, 10/10 more on the right lumbar region than the left lumbar region for the past one day. Endorses hematuria for the past couple of days. Endorses painful micturition for the past two days. He had a recent admission in September at [facility] for the same complaints. Denied shortness of breathe,, chest pain, palpi tations, abdominal distention, decreased urine output. Reports use of marijuana. Course in the hospital: Admitted with UTI , sepsis, mild right hydroureteronephrosis with right pyelonephritis, CEM. Vitals are stable. Serum creatinine and lactic acid which was trended up initially, later trended down with the ceftriaxone and IV fluid. Urine analysis is positive for UTI. Patient was made strain urine. Urinalysis culture and sensitivity complete report is pending but it showed Gram-negative rods. Urine toxicology showed cannabinoid. Blood pressures initially in the lower side and but maintenance at more than 65. Even though it is bilateral nonobstructive renal calculi but patient is with right pyelonephritis with CEM which made us to consult urologist Dr. Schmid and he recommended for medical management with IV antibiotics. Uncontrolled hyperglycemia is due to poor drug compliance. A1c is 8.4, glucose initially trended high as 280s patient was on low-dose insulin lispro protocol. Glucose was controlled with insulin protocol. Intractable vomitings is secondary to cannabis hyperemesis syndrome and rece ived zohra present, Zofran, Protonix, mental health social worker. Vomitings are subsided. Polycythemia is secondary to dehydration and patient was given IV normal saline. We found hepatic lesion of 1 cm hypodense lesion, Incidental finding on CT. Received olanzapine for anxiety, agitation. Patient was on divalproex, topiramate, trazodone, venlafaxine, ziprasidone home medications for seizures, schizoaffective disorder, chronic lower back pain. Patient needs to follow up with the primary care physician and degreasing solution reclaimer in outpatient. Received GI prophylaxis with famotidine, DVT prophylaxis with heparin. Examination time of discharge Vital Signs Date Time Temp Pulse Resp B/P (MAP) Pulse Ox O2 Delivery O2 Flow Rate FiO2 12/14/24 10:00 97.8 72 16 97/67 (77) 96 Room Air 12/14/24 08:00 0.0 Adult female, morbidly obese, alert and oriented x4, in mild distress Head: Normocephalic with an atraumatic Eyes: Pupils- 3mm, reacting to light, conjunctiva- anicteric Nose and throat: No polyps, septum- normal, no mucosal ulcers Neck: Supple, no lymphadenopathy, no carotid bruit Respiratory: No use of accessory muscles of respiration, Bilateral normal vesicular breath sounds heard. No wheeze, rhochi or creps Cardiac: S1-S2 heard, rhythm regular, no gallop/murmur Abdomen: Soft, non distended, no tenderness in right and left upper quadrants, no organomegaly, bowel sounds - heard Extremities: no clubbing, no pedal edema, no deformities, peripheral pulses - 2+ Skin: warm and dry, silvery plaques on bilateral shins, no purpura Neuro: No focal deficit, gross cranial nerve exam - normal Laboratory Tests Test 12/12/24 17:47 12/12/24 21:39 12/13/24 05:11 12/13/24 05:12 Glucometer 218 mg/dl 168 mg/dl White Blood Count 8.6 X10'3 Red Blood Count 4.97 X10'6 Hemoglobin 15.1 g/dl Hematocrit 44.4 % Mean Corpuscular Volume 89.4 FL Mean Corpuscular Hemoglobin 30.3 PG Mean Corpuscular Hemoglobin Concent 33.9 g/dL Red Cell Distribution Width 15.2 % Platelet Count 201 X10'3 Mean Platelet Volume 7.7 FL Neutrophils (%) (Auto) 54.8 % Lymphocytes (%) (Auto) 37.7 % Monocytes (%) (Auto) 6.7 % Eosinophils (%) (Auto) 0.1 % Basophils (%) (Auto) 0.7 % Neutrophils # (Auto) 4.7 X10'3 Lymphocytes # (Auto) 3.2 X10'3 Monocytes # (Auto) 0.6 X10'3 Eosinophils # (Auto) 0.0 X10'3 Basophils # (Auto) 0.1 X10'3 CBC Comment Sodium Level 144 MMOL/L Potassium Level 3.4 MMOL/L Chloride Level 109 MMOL/L Carbon Dioxide Level 28.4 MMOL/L Anion Gap 7 Blood Urea Nitrogen 25 MG/DL Creatinine 1.07 MG/DL Estimated GFR/1.73 m2 54 ML/MIN BUN/Creatinine Ratio 23.4 Glucose Level 97 MG/DL Calcium Level 8.5 MG/DL Total Bilirubin 0.3 MG/DL Aspartate Amino Transf (AST/SGOT) 7 U/L Alanine Aminotransferase (ALT/SGPT) 11 U/L Alkaline Phosphatase 62 IU/L Total Protein 6.8 G/DL Albumin 2.8 G/DL Globulin 4.0 G/DL Albumin/Globulin Ratio 0.7 Chemistry Comments Urine Opiates Screen Positive Urine Methadone Screen Negative Urine Fentanyl Screen Negative Urine Barbiturates Screen Negative Urine Phencyclidine Screen Negative Urine Amphetamines Screen Negative Urine Benzodiazepines Screen Negative Urine Cocaine Screen Negative Urine Cannabinoids Screen Positive Drug Screen Comment Test 12/13/24 05:45 12/13/24 07:18 12/13/24 12:35 12/13/24 17:03 Hepatitis B Surface Antigen Negative Hepatitis B Core Total Antibody Negative Hepatitis B Core IgM Antibody Negative Glucometer 98 mg/dl 119 mg/dl 140 mg/dl Test 12/13/24 19:50 12/14/24 04:29 12/14/24 04:39 12/14/24 07:36 Glucometer 166 mg/dl 132 mg/dl Sodium Level 144 MMOL/L Potassium Level 3.9 MMOL/L Chloride Level 111 MMOL/L Carbon Dioxide Level 26.3 MMOL/L Anion Gap 7 Blood Urea Nitrogen 19 MG/DL Creatinine 0.90 MG/DL Estimated GFR/1.73 m2 65 ML/MIN BUN/Creatinine Ratio 21.1 Glucose Level 120 MG/DL Calcium Level 8.2 MG/DL Total Bilirubin 0.2 MG/DL Aspartate Amino Transf (AST/SGOT) 15 U/L Alanine Aminotransferase (ALT/SGPT) 13 U/L Alkaline Phosphatase 52 IU/L Total Protein 5.8 G/DL Albumin 2.4 G/DL Globulin 3.4 G/DL Albumin/Globulin Ratio 0.7 Chemistry Comments White Blood Count 5.8 X10'3 Red Blood Count 4.77 X10'6 Hemoglobin 14.3 g/dl Hematocrit 42.3 % Mean Corpuscular Volume 88.7 FL Mean Corpuscular Hemoglobin 29.9 PG Mean Corpuscular Hemoglobin Concent 33.7 g/dL Red Cell Distribution Width 14.9 % Platelet Count 177 X10'3 Mean Platelet Volume 7.3 FL Neutrophils (%) (Auto) 43.9 % Lymphocytes (%) (Auto) 48.5 % Monocytes (%) (Auto) 6.3 % Eosinophils (%) (Auto) 0.7 % Basophils (%) (Auto) 0.6 % Neutrophils # (Auto) 2.6 X10'3 Lymphocytes # (Auto) 2.8 X10'3 Monocytes # (Auto) 0.4 X10'3 Eosinophils # (Auto) 0.0 X10'3 Basophils # (Auto) 0.0 X10'3 CBC Comment Test 12/14/24 12:16 Glucometer 146 mg/dl Discharge advice Follow up with primary care physician in one week with CBC and CMP, for 1 cm hypodense hepatic lesion. Continue levofloxacin 500 mg p.o. daily for 10 days. Recommended to cessation of marijuana use Call 911 or visit ER if emergency *Problems/Diagnosis: (1) UTI (urinary tract infection) (2) Sepsis (3) Hydroureteronephrosis (4) Pyelonephritis of right kidney (5) Uncontrolled diabetes mellitus with hyperglycemia (6) Type 2 diabetes mellitus (7) Noncompliance with medication regimen (8) Intractable cyclical vomiting syndrome (9) Marijuana use (10) CEM (acute kidney injury) (11) Polycythemia (12) Seizures (13) Bipolar disorder (14) Schizoaffective disorder (15) Chronic lower back pain (16) Morbid obesity (17) Dehydration Total Time Spent on D/C: > 30 Minutes Date of Service: December 14, 2024 Billing Provider: SERA LYNN MD Common Visit Codes: [id number] DISCH DAY >30min RAÚL ESPINOZA, NAOMY December 14, 2024 17:49 SERA LYNN MD December 14, 2024 19:05
== END 2024-12-14 15:37 | disposition home or self-care (01) | DRG 720 ==
LOC: ER 07:14 → UNDOADMIN 12:45 → ED HOLD 12:45 → SUR 3N 23:56 → ED HOLD 23:56
PROVIDERS: ADMIT Internal Medicine; ATTEND Internal Medicine
PROC: BW211ZZ Computerized Tomography (CT Scan) of Abdomen and Pelvis using Low Osmolar Contrast (ICD-10-PCS; principal; 2024-12-12)
DX: A41.9 Sepsis, unspecified organism (principal); N17.0 Acute kidney failure with tubular necrosis; E11.65 Type 2 diabetes mellitus with hyperglycemia; J45.909 Unspecified asthma, uncomplicated; N13.6 Pyonephrosis; E86.0 Dehydration; F25.0 Schizoaffective disorder, bipolar type; F32.A Depression, unspecified; K76.9 Liver disease, unspecified; I10 Essential (primary) hypertension; E66.01 Morbid (severe) obesity due to excess calories; Z68.41 Body mass index [BMI] 40.0-44.9, adult; Z87.891 Personal history of nicotine dependence; Z79.84 Long term (current) use of oral hypoglycemic drugs; Z79.899 Other long term (current) drug therapy
CPT/HCPCS: 36415; 74177; 80053; 80061; 80305; 81001; 82948; 83036; 83605; 83690; 85025; 86704; 86705; 87040; 87077; 87081; 87088; 87186; 87340; 96365; 99285; A6258; G0378; J0131; J0696; J0780; J1644; J1815; J1885; J2405; J2470; J3490; J7030; Q9967

== ENCOUNTER 2025-01-03 17:34 | Inpatient (IN) | payer MEDICAID ==
[~2025-01-03] VITALS: Ht 165.1 cm; Wt 105.0 kg
[~2025-01-03 17:34] MED LIST changes: +NYSPWD TP; -TIRZ2.5P INJ
[2025-01-03 18:28] LABS: BASOPHILS % (AUTO) 0.6 % (0-1); EOSINOPHILS % (AUTO) 0.3 % (0-6); HEMATOCRIT 51.8 % (35.0-45.0); HEMOGLOBIN 17.4 g/dl (12.0-16.0); LYMPHOCYTES # (AUTO) 0.8 X10'3 (1.1-4.8); LYMPHOCYTES % (AUTO) 10.8 % (21-51); MEAN CORPUSCULAR HEMOGLOBIN 30.2 PG (27.0-31.0); MEAN CORPUSCULAR HGB CONC 33.7 g/dL (33.0-36.5); MEAN CORPUSCULAR VOLUME 89.8 FL (78-98); MEAN PLATELET VOLUME 7.7 FL (7.4-10.4); MONOCYTES # (AUTO) 0.2 X10'3 (0-0.9); MONOCYTES % (AUTO) 2.3 % (2-12); NEUTROPHILS # (AUTO) 6.3 X10'3 (1.8-7.7); PLATELET COUNT 230 X10'3 (140-440); RED BLOOD COUNT 5.77 X10'6 (4.20-5.60); RED CELL DISTRIBUTION WIDTH 15.5 % (11.5-14.5); WHITE BLOOD COUNT 7.3 X10'3 (4.5-11.0)
[2025-01-03 18:56] LABS: ALANINE AMINOTRANSFERASE 15 U/L (12-78); ALBUMIN 3.4 G/DL (3.4-5.0); ALBUMIN/GLOBULIN RATIO 0.8 (1.1-1.5); ALKALINE PHOSPHATASE 73 IU/L (46-116); ANION GAP 15 (8-16); ASPARTATE AMINO TRANSFERASE 13 U/L (10-37); BILIRUBIN,TOTAL 0.5 MG/DL (0.1-1.0); BLOOD UREA NITROGEN 20 MG/DL (7-18); BUN/CREATININE RATIO 16.8 (10.0-20.0); CHLORIDE 103 MMOL/L (99-107); CREATININE 1.19 MG/DL (0.40-0.90); GLUCOSE 244 MG/DL (70-104); LIPASE 36 U/L (16-77); SODIUM 139 MMOL/L (135-145); TOTAL CARBON DIOXIDE 20.8 MMOL/L (24-32); TOTAL PROTEIN 7.7 G/DL (6.4-8.2); eCRCL 49 ML/MIN; eGFR 47 ML/MIN
[2025-01-03 18:59] LABS: CALCIUM 9.5 MG/DL (8.5-10.1); POTASSIUM 4.5 MMOL/L (3.5-5.1)
[2025-01-03 19:14] LABS: URINE HCG NEGATIVE (NEG)
[2025-01-03 19:18] LABS: BILIRUBIN,URINE MODERATE (Neg); CLARITY,URINE SLIGHTLY CLOUDY (Clear); COLOR,URINE YELLOW (Yellow); GLUCOSE, URINE NEGATIVE (Neg); KETONES,URINE 40 mg/dl (Neg); LEUKOCYTE ESTERASE ,URINE MODERATE (Neg); OCCULT BLOOD,URINE NEGATIVE (Neg); PH,URINE 7.5 (4.8-8.0); PROTEIN,URINE 30 mg/dl (Neg); UROBILINOGEN,URINE 0.2 E.U/dL (0.2-1.0)
[2025-01-03 19:32] LABS: NITRITES, URINE NEGATIVE (Neg); UA COLLECTION TYPE NON-SPECIFIED
[2025-01-03 19:34] VITALS: PULSE 99; RESP 16; O2SAT 99
[2025-01-03] MEDS: ipratropium/albuterol 3ml nebule NEB ONE (19:34)
[2025-01-03 19:35] LABS: BACTERIA,URINE FEW /HPF (Neg); MUCUS STRANDS NONE SEEN /LPF (Neg); SQUAMOUS EPITHELIAL CELL,UR MANY /LPF (FEW)
--- NOTE | 2025-01-03 19:49 | Physician Documentation ---
History of Present Illness ~ Chief Complaint: Vomiting Stated Complaint: N/V Time Seen by MD: 18:48 Primary Medical Doctor: Dr. Cain. Mode of Arrival: Ambulatory HPI Patient presents to the emergency room with nausea vomiting and diarrhea for the past three days. Significant other with similar symptoms. Denies unusual foods. Reports diffuse abdominal pain. No fevers Medication Reconciliation Allergies: Coded Allergies: ibuprofen (Unverified Allergy, Unknown, 12/12/24) Scheduled Divalproex ER* (Depakote ER*), 3 TAB PO HS, (Reported) Empagliflozin (Jardiance), 1 TAB PO QAM, (Reported) Ergocalciferol (Vitamin D2) (Vitamin D2), 1 CAP PO Q7D, (Reported) Famotidine (Famotidine), 1 TAB PO DAILY, (Reported) Loperamide HCl (Imodium A-D), 1 CAP PO Q8H Metformin HCl (Metformin HCl), 1 TAB PO Q12H, (Reported) Nystatin (NYSTOP powder), 1 APPLIC TP TID Ondansetron 8mg ODT (Ondansetron Odt), 1 TAB PO Q6H Prazosin Hcl (Prazosin Hcl), 1 CAP PO HS, (Reported) Rosuvastatin Calcium* (Crestor*), 1 TAB PO HS, (Reported) Topiramate (Topiramate), 2 TAB PO Q12H, (Reported) Trazodone HCl (Trazodone HCl), 2 TAB PO HS Venlafaxine HCl (Effexor Xr), 1 CAP PO DAILY, (Reported) Venlafaxine HCl (Venlafaxine HCl ER), 1 TAB PO DAILY Ziprasidone Hcl (Ziprasidone Hcl), 1 CAP PO QAM, (Reported) Ziprasidone Hcl (Ziprasidone Hcl), 2 CAP PO HS, (Reported) Scheduled PRN Baclofen (Baclofen), 1 TAB PO TID PRN for pain, (Reported) ONDANSETRON ODT 4mg tablet (Ondansetron Odt), 1 TAB PO Q6H PRN PRN for nausea/vomiting Past Medical History Past Medical History: Seizures, Hypertension, Asthma, Diabetes, Bipolar, Depression, Schizophrenia Past Surgical History: noncontributory Patient History: FH: cardiovascular disease FAMILY/OTHER, Name: Brother FH: emphysema FATHER, , Cause: Diabetes GRANDFATHER OR GRANDMOTHER FH: heart disease Brother FH: peptic ulcer GRANDFATHER OR GRANDMOTHER GRANDFATHER OR GRANDMOTHER Brother FHx: schizophrenia MOTHER Alcohol Use: Sober Drug Use: marijuana Lives with: Family Lives In: Home Review of Systems ROS All review of systems negative except as per HPI Physical Exam Vital Signs: Temperature: 97.6, Source: Temporal, Heart Rate: 99, Respiratory Rate: 16, BP: 123/69, Pulse Oximetry: 99, Weight: 105.000 Oxygen Flow Rate: 0 Physical Exam General: Patient is awake, alert, oriented x4 in mild distress Head: Normocephalic and atraumatic. Eyes: Conjunctival normal. EOMI. PERRL. ENT: Mucous membranes moist. Neck: Supple, trachea is midline. Chest: Noted bilateral wheezing present. No rhonchi. There is no accessory muscle use or retractions. Tachypneic Cardiac: Tachycardic and regular without murmurs, gallops, or rubs. Abd: Soft, nondistended, diffuse abdominal tenderness without peritonitis Progress Results/Orders Results/Orders Orders - JEFF BELL MD Svn Treatment (01/03/25 19:24) Ct Abdomen Pelvis (01/03/25 21:30) Page Hospitalist (01/03/25 23:45) Fill Out Med Reconciliation (01/03/25 23:45) Completed Orders - JEFF BELL MD Ondansetron Inj. (Zofran 4mg/2ml Vial) (01/03/25 18:50) Normal Saline 1000ml (Sodium Chloride 10 (01/03/25 18:50) Normal Saline 1000ml (Sodium Chloride 10 (01/03/25 19:25) Ipratropium/Albuterol Nebule (Ipratrop/A (01/03/25 19:25) Diphenhydramine Inj (Benadryl Inj.) (01/03/25 21:00) Ct Abdomen Pelvis (01/03/25 21:30) Morphine 4mg/Ml Inj. (Morphine Inj.) (01/03/25 21:45) Drug Screen, Urine (01/03/25 21:41) Metoclopramide Inj (Reglan Inj) (01/03/25 21:55) Haloperidol Lact. (Haldol) (01/03/25 21:55) Vital Signs 01/03/25 01/03/25 01/03/25 01/03/25 17:39 18:40 19:34 20:00 Temp 97.6 Pulse 113 99 115 Resp 30 20 16 22 B/P (MAP) 123/69 146/92 (110) Pulse Ox 99 99 98 O2 Delivery Room Air* O2 Flow Rate 0 0 0 FiO2 21 01/03/25 01/03/25 01/03/25 01/03/25 21:00 22:00 22:23 23:53 Pulse 110 98 92 Resp 20 20 16 18 B/P (MAP) 146/90 (108) 148/92 (110) 145/88 (107) Pulse Ox 98 98 97 O2 Flow Rate 0 0 0 Laboratory Tests Test 01/03/25 17:45 01/03/25 18:14 01/03/25 18:56 Glucometer 248 H White Blood Count 7.3 Red Blood Count 5.77 H Hemoglobin 17.4 H Hematocrit 51.8 H Mean Corpuscular Volume 89.8 Mean Corpuscular Hemoglobin 30.2 Mean Corpuscular Hemoglobin Concent 33.7 Red Cell Distribution Width 15.5 H Platelet Count 230 Mean Platelet Volume 7.7 Neutrophils (%) (Auto) 86.0 H Lymphocytes (%) (Auto) 10.8 L Monocytes (%) (Auto) 2.3 Eosinophils (%) (Auto) 0.3 Basophils (%) (Auto) 0.6 Neutrophils # (Auto) 6.3 Lymphocytes # (Auto) 0.8 L Monocytes # (Auto) 0.2 Eosinophils # (Auto) 0.0 Basophils # (Auto) 0.0 CBC Comment Sodium Level 139 Potassium Level 4.5 Chloride Level 103 Carbon Dioxide Level 20.8 L Anion Gap 15 Blood Urea Nitrogen 20 H Creatinine 1.19 H Estimated GFR/1.73 m2 47 BUN/Creatinine Ratio 16.8 Glucose Level 244 H Calcium Level 9.5 Total Bilirubin 0.5 Aspartate Amino Transf (AST/SGOT) 13 Alanine Aminotransferase (ALT/SGPT) 15 Alkaline Phosphatase 73 Total Protein 7.7 Albumin 3.4 Globulin 4.3 Albumin/Globulin Ratio 0.8 L Lipase 36 Chemistry Comments Urine Specimen Description Non-specified Urine Color Yellow Urine Clarity Slightly cloudy Urine pH 7.5 Urine Specific Tranquillity 1.015 Urine Protein 30 H Urine Glucose (UA) Negative Urine Ketones 40 H Urine Occult Blood Negative Urine Nitrite Negative Urine Bilirubin Moderate Urine Urobilinogen 0.2 Urine Leukocyte Esterase Moderate H Urine RBC 3-10 Urine WBC 5-10 H Urine Squamous Epithelial Cells Many Urine Bacteria Few Urine Mucus None seen Urine Culture Indicated Rejected for culture Volume Urine Centrifuged 10 ml Urine HCG, Qualitative Negative Urine Comment Medical Decision Making Findings Patient presents to the emergency room for evaluation of nausea and vomiting and diarrhea. Differentials include but are not gastroenteritis, food poisoning, dehydration, electrolyte disturbances therefore emergent labs and imaging indicated. CT scan shows possible enteritis and possible developing small bowel however patient has had multiple diarrhea bouts in our emergency room. Despite multiple antiemetics patient states she feels no better. We will admit for continued treatment. Departure Admitted to Inpatient Unit: yes, to hospitalist Impression: Primary Impression: Acute gastroenteritis Additional Impression: Intractable vomiting Condition: Guarded Referrals: NO PRIMARY CARE PROVIDER (PCP) Prescriptions Loperamide HCl (Imodium A-D) 2 Mg Capsule 1 CAP PO Q8H for 5 Days, #15 CAP 0 Refills Prov: YINKA ALMODOVAR MD 01/05/25 Ondansetron 8mg ODT (Ondansetron Odt) 8 Mg Tab.rapdis 1 TAB PO Q6H for nausea/vomiting for 3 Days, #12 TAB 0 Refills Prov: YINKA ALMODOVAR MD 01/05/25 Signature Scribe Signature: No scribe Attestation: The note accurately reflects work and decisions made by me.Jeff Bell MD 01/03/25 23:48 JEFF BELL MD Jan 03, 2025 19:49
[2025-01-03] MEDS: ondansetron/PF 4mg/2ml inj IV ONE (20:14)
[2025-01-03] MEDS: normal saline 1000ml 1,000 ML IV ONE (20:29)
[2025-01-03] MEDS ORDERED: proCHLORperazine 10 MG/2 ml inj IV ONE (21:00)
[2025-01-03] MEDS: normal saline 1000ML IV soln IVB ONE (22:19)
[2025-01-03] MEDS: diphenhydrAMINE 50 mg/ml inj IV ONE (22:19)
[2025-01-03] MEDS: metoclopramide 5 mg/ml inj IV ONE (22:22)
[2025-01-03] MEDS: haloperidol lactate 5mg/ml inj IVH ONE (22:23)
[2025-01-03] MEDS: morphine 4 MG/ML inj SYRINge IV ONE (22:23)
--- NOTE | 2025-01-03 22:25 | RADIOLOGY REPORT ---
Exam: CT CT ABDOMEN PELVIS History: abd pain Comparison Study: CT CT ABDOMEN PELVIS W/ IV CONTRAST on DOS: 12/12/24, CT CT ABDOMEN PELVIS on DOS: , CT CT ABDOMEN PELVIS on DOS: 08/30/24, CT ABDOMEN PELVIS on DOS: 02/19/22 TECHNIQUE: Multidetector CT of the abdomen and pelvis was performed from lung bases to pubic symphysi s. Imaging was performed without IV contrast. Axial, coronal, and sagittal multiplanar reformats were obtained from the axial data set by the technologist. RADIATION DOSE: DLP 36.75 mGy.cm; CTDI vol 1857.3 mGy. Findings: Liver: Unremarkable. Spleen: Unremarkable. Pancreas: Unremarkable. Gallbladder: Unremarkable. Adrenals: Unremarkable Kidneys: Bilateral nonobstructing nephrolithiasis. No hydronephrosis. Pelvic Viscera: Unremarkable. Vasculature: Mild atherosclerotic aortoiliac calcifications. Retroperitoneum: Absent Bowel: There is a nonspecific fecalized and dilated loop of small bowel within the midabdomen. No as sociated stranding. Musculoskeletal: Unremarkable. Soft tissues: Unremarkable Lungs: The lung bases are clear. Impression: 1. Nonspecific fecalized and dilated loop of small bowel within the mid abdomen. No associated strand ing. Findings could reflect a mild enteritis, with developing small bowel obstruction not entirely e xcluded. Further clinical correlation is suggested. 2. Additional findings as detailed.
[2025-01-04] VITALS (7 sets, daily range): BP systolic 87–116; BP diastolic 58–66; PULSE 74–97; RESP 14–20; TEMP 98.1–98.4; O2SAT 95–98
[2025-01-04] MEDS ORDERED: magnesium sulf-water 4G/100mL 100 ML IV PRN (00:25)
[2025-01-04] MEDS ORDERED: potassium Cl 40MEQ/1/2NS 520ml 520 ML IV PRN (00:25)
[2025-01-04] MEDS ORDERED: acetaminophen 325mg tablet PO PRN (00:25)
[2025-01-04] MEDS ORDERED: potassium Cl 20 mEq SR tablet PO PRN ×2 (00:25)
[2025-01-04] MEDS ORDERED: magnesium sulf-water 2g/50mL 50 ML IV PRN (00:25)
[2025-01-04] MEDS ORDERED: magnesium hydroxide 30ml (MOM) UD suspension PO PRN (00:25)
[2025-01-04] MEDS ORDERED: mag hydrox/Alum hydrox/simeth 30ml oral suspension PO PRN (00:25)
[2025-01-04] MEDS ORDERED: dextrose 50%-water 50ml dispensing syringe IV PRN ×2 (00:45)
[2025-01-04] MEDS ORDERED: DEXTROSE 15 GM of carb/4 tabs (each vial/BOTTLE has 4 tablets) PO PRN ×2 (00:45)
[2025-01-04] MEDS ORDERED: glucagon, human recombinant 1mg kit SUBCUT PRN (00:45)
--- NOTE | 2025-01-04 00:46 | HISTORY AND PHYSICAL-Residence ---
History & Physical Providers to CC Resident Creating Document: AD ESCOBAR, RES CC: JEY CLAYTON Jr. DO ~ History of Present Illness Primary Medical Doctor: Dr. Cain. Reason for Admit\Complaint: Abdominal pain, nausea and vomitings, diarrhea History of Present Illness A 54-year-old female past medical history of diabetes mellitus type 2 and bipolar disorder presented to the ED with complaints of multiple episodes of vomitings and diarrhea over the last 2-3 days. Patient states that she has nausea and vomitings with watery vomitus and watery diarrhea. Patient also endorses abdominal pain which is sharp in character that is generalized with no radiation or no aggravating or relieving factors with a severity scale is 10/10. Patient endorses decreased appetite, similar symptoms that resolved in the family. Patient has associated chills but denies fever, travel or consumption of outside food, burning micturition or bloody diarrhea. Allergies: Coded Allergies: ibuprofen (Unverified Allergy, Unknown, 12/12/24) Home Medications Home Medications Active NYSTOP powder (Nystatin) 100,000 Unit/Gram Gra 1 Applic TP TID 30 Days Ondansetron Odt (Ondansetron HCl) 4 Mg Tab.rapdis 1 Tab PO Q6H PRN PRN 4 Days Venlafaxine HCl ER (Venlafaxine HCl) 75 Mg Tab.er.24 1 Tab PO DAILY 14 Days Trazodone HCl 100 Mg Tablet 2 Tab PO HS Reported Jardiance (Empagliflozin) 25 Mg Tablet 1 Tab PO QAM Baclofen 20 Mg Tablet 1 Tab PO TID PRN Effexor Xr (Venlafaxine HCl) 150 Mg Cap.er.24h 1 Cap PO DAILY 30 Days Crestor* (Rosuvastatin Calcium) 20 Mg Tablet 1 Tab PO HS 30 Days Famotidine 20 Mg Tablet 1 Tab PO DAILY Prazosin Hcl 2 Mg Capsule 1 Cap PO HS Vitamin D2 (Ergocalciferol (Vitamin D2)) 1,250 Mcg Capsule 1 Cap PO Q7D ON SATURDAYS Depakote ER* (Divalproex Sodium) 500 Mg Tab.sr.24h 3 Tab PO HS Ziprasidone Hcl 80 Mg Capsule 2 Cap PO HS Ziprasidone Hcl 40 Mg Capsule 1 Cap PO QAM Metformin HCl 1,000 Mg Tablet 1 Tab PO Q12H 30 Days Topiramate 50 Mg Tablet 2 Tab PO Q12H 30 Days Past Medical History Past Medical History Diabetes mellitus type 2 Bipolar Seizures Psoriasis Restless legs syndrome Past Surgical History Surgical History Comment Ankle surgery Right arm surgery Family History Family History: FH: cardiovascular disease FAMILY/OTHER, Name: Brother FH: emphysema FATHER, , Cause: Diabetes GRANDFATHER OR GRANDMOTHER FH: heart disease Brother FH: peptic ulcer GRANDFATHER OR GRANDMOTHER GRANDFATHER OR GRANDMOTHER Brother FHx: schizophrenia MOTHER Past Social History Social History Comment Former smoker quit 30 years ago Smokes marijuana and has gummies Does not consume illicit drugs Consumes alcohol occasionally on special days Dr. 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 at [employer] Smoking: Non-Smoker Alcohol Use: Sober Drug Use: Marijuana Lives with: Family Lives In: Home ROS ROS All other systems reviewed in full and negative except for the pertinent positives mentioned in the HPI Exam Vitals: Vital Signs Date Time Temp Pulse Resp B/P (MAP) Pulse Ox O2 Delivery O2 Flow Rate FiO2 01/03/25 23:53 92 18 145/88 (107) 97 0 01/03/25 19:34 Room Air* 21 01/03/25 17:39 97.6 General: General: Morbidly obese woman, Alert, awake, oriented, severe acute distress HEENT: PERRLA, no icterus, pallor, lymphadenopathy, carotid bruit Respiratory system: Bilateral vesicular breath sounds heard, no adventitious breath sounds CVS: S1-S2 heard, no murmurs/rubs/gallop GI: Generalized tenderness of the abdomen, Soft, no organomegaly, no guarding/rigidity, hypoactive bowel sounds present Neuro: No focal neurological deficits present Extremities: No edema cyanosis clubbing/deformities Skin: Warm and dry Diagnostic Data Last Recorded Lab Results: 01/03/25181301/03/251813 Advance Care Planning Advanced Care plannin - 30 Minutes (I spent 20 minutes discussing various resuscitative measures and the patient decided to be full code) Additional Plan Assessment: 54-year-old female with past medical history of diabetes mellitus and bipolar disorder, seizures presented to the ED with multiple episodes abdominal pain, vomiting and diarrhea with the last two three days. Patient is admitted for the evaluation and management of acute gastroenteritis. Plan: Acute gastroenteritis Infectious versus cannabinoid induced hyperemesis syndrome CT abdomen: Nonspecific fecalized and dilated loop of small bowel within the mid abdomen. No associated stranding. Findings could reflect a mild enteritis, with developing small bowel obstruction not entirely excluded. Normal WBC count and lipase levels, follow up with procalcitonin and U tox, C diff and stool studies IV fluids at 100 cc/hour Started the patient on IV ciprofloxacin and metronidazole Can be discontinued if the patient is positive for U tox marijuana Clear liquids Pain management Patient has vomitings, bowel sounds and diarrhea and therefore bowel obstruction can be excluded which is on finding on the CT abdomen Prerenal CEM probably secondary to renal tubular stasis Probably secondary to dehydration from nausea vomitings and diarrhea Elevated BUN and creatinine Continue IV fluids at 100 cc/hour Continue to monitor BMP Non-anion gap ketoacidosis 2/2 nausea and vomitings Continue IV fluids Asymptomatic bacteriuria Follow up with urine culture Diabetes mellitus type 2, uncontrolled A1c:8.4 On hyper/hypoglycemia protocol On 21 units insulin Lantus, 10 units insulin lispro t.i.d. p.c., moderate dose sliding scale insulin Seizures Bipolar disorder Restless legs syndrome Start on home meds after reconciliation Psoriasis Outpatient follow up Pending med rec Follow up with echo and lipid panel Code status: Full code Diet: NPO DVT prophylaxis: SCD Disposition: Admit to ortho, follow up with U tox, echo and lipid panel Ad Escobar MD Internal Medicine, PGY 1 Nocturnal knee bolter attestation of resident HP. Attestation of HP only, care immediately directed to hospitalist team - Gastroenteritis - Stool cult - Procacl, if neg stop abx - Zolfran, PO intake - Nalini for DVT proph Patient seen through remote audiovisual assessment through HIPAA compliant setup. All labs, flowsheets, and images reviewed. Date of Service: Jan 03, 2025 Billing Provider: JEY CLAYTON Jr. DO AD ESCOBAR, RES Jan 04, 2025 00:46 JEY CLAYTON Jr. DO Jan 04, 2025 04:02
[2025-01-04] MEDS: normal saline 1000ml 1,000 ML IV SCH (01:45)
[2025-01-04] MEDS: ciprofloxacin lact 400MG/200ML 200 ML IV ONE (02:09)
[2025-01-04] MEDS ORDERED: baclofen 10mg tablet PO PRN (02:30)
[2025-01-04] MEDS: ciprofloxacin lact 400MG/200ML 200 ML IV SCH (03:29)
[2025-01-04] MEDS: HYDROcodone/acetaminophen 5mg/325mg tablet PO PRN (03:29)
[2025-01-04] MEDS: metroNIDAZOLE-Flagyl 500mg/NS 100 ML IV SCH (03:29)
[2025-01-04 04:08] LABS: BILIRUBIN,URINE SMALL (Neg); COLOR,URINE YELLOW (Yellow); GLUCOSE, URINE >=1000 mg/dl (Neg); KETONES,URINE 40 mg/dl (Neg); LEUKOCYTE ESTERASE ,URINE NEGATIVE (Neg); NITRITES, URINE NEGATIVE (Neg); OCCULT BLOOD,URINE TRACE-INTACT (Neg); PH,URINE 6.5 (4.8-8.0); PROTEIN,URINE NEGATIVE (Neg); UROBILINOGEN,URINE 0.2 E.U/dL (0.2-1.0)
[2025-01-04 04:17] LABS: CLARITY,URINE SLIGHTLY CLOUDY (Clear); UA COLLECTION TYPE CLN CATCH MIDSTREAM
[2025-01-04 04:18] LABS: BACTERIA,URINE FEW /HPF (Neg)
[2025-01-04 04:19] LABS: MUCUS STRANDS FEW /LPF (Neg); SQUAMOUS EPITHELIAL CELL,UR FEW /LPF (FEW)
[2025-01-04 04:28] LABS: URINE AMPHETAMINE SCREEN NEGATIVE (Neg); URINE BARBITUATE SCREEN NEGATIVE (Neg); URINE BENZODIAZEPINES SCREEN NEGATIVE (Neg); URINE CANNABINOID SCREEN POSITIVE (Neg); URINE COCAINE SCREEN NEGATIVE (Neg); URINE METHADONE SCREEN NEGATIVE (Neg); URINE OPIATE SCREEN POSITIVE (Neg); URINE PHENCYCLIDINE SCREEN NEGATIVE (Neg)
[2025-01-04 04:36] LABS: MAGNESIUM 1.4 MG/DL (1.5-2.4); POTASSIUM 3.7 MMOL/L (3.5-5.1)
[2025-01-04] MEDS: ondansetron/PF 4mg/2ml inj IV PRN (06:43)
[2025-01-04] MEDS: venlafaxine XR 75mg capsule (Q24H) PO SCH (08:11)
[2025-01-04] MEDS: ziprasidone 20mg capsule PO SCH ×2 (08:14→21:22)
[2025-01-04] MEDS: topiramate 100mg tablet PO SCH (08:14)
[2025-01-04] MEDS: morphine 2 MG/ML inj. syringe IV PRN (08:39)
[2025-01-04] MEDS: magnesium Cl slow-release 64mg tablet PO PRN (08:39)
[2025-01-04] MEDS: docusate sod 100mg capsule PO SCH (08:39)
[2025-01-04] MEDS: K and/or MAG REPLACEMENT MC SCH (08:44)
[2025-01-04] MEDS ORDERED: insulin Lispro (HumaLOG) vial - multi-dose SQ SCH (09:00)
[2025-01-04] MEDS: INSULIN LISPRO 100 UNIT/ML INSULN.PEN MULTI-DOSE SQ SCH ×2 (09:00→11:02)
[2025-01-04] MEDS: PERFLUTREN PROTEIN-A MICROSPHR (Optison) 0.22 MG/ML 3ML VIAL IV ONE (09:00)
--- NOTE | 2025-01-04 18:53 | CARDIOLOGY REPORT ---
APPROVED REPORT EXAM: Comprehensive 2D, Doppler, and color-flow Echocardiogram. Patient Location: 348B Blood Pressure: 116/64 mmHg Heart Rate: 74 bpm Indications Congestive Heart Failure Shortness of Breath Diabetes Hypertension Asthma NO CLINICAL COUNSELOR Previous ECHO: 02/20/22, [facility], ER, EF: 60-65 2D Dimensions LA Diam2.7 cm IVSd 1.0 (0.7-1.1cm) LVDd 4.3 cm PWd 0.8 (0.7-1.1cm) IVSs 1.4 (0.8-1.2cm) LVDs 2.4 (2.5-4.0cm) PWs 1.3 (0.8-1.2cm) LVOT Diameter 1.96 (1.8-2.4cm) LVEF(%) 76.1 (>50%) Ao Asc Diam.3.12 cm IVC 15.34 mmFS (%) 44.5 % SV 61.8 ml CO 4.7 L/min M-Mode Dimensions Left Atrium(MM) 3.32 (2.5-4.0cm) Aortic Root 3.22 (2.2-3.7cm) Aortic Cusp Exc 1.91 (1.5-2.0cm) Aortic Valve AoV Peak Abdirahman. 129.7 cm/s AoV VTI 20.5 cm AO Peak GR. 6.7 mmHg AO Mean GR. 3 mmHg LVOT VTI 20.54 cm LVOT Peak Abdirahman. 101.9 cm/s DYLAN(VTI)/BSA 3.01 cm2/m2 DYLAN (VTI) 3.01 cm2 Mitral Valve MV E Velocity 83.4 cm/s MV Peak Gr. 4 mmHg MV DECEL TIME 268 ms MV A Velocity 66.3 cm/s MV PHT 56 ms E/A Ratio 1.3 MVA (PHT) 3.93 cm2 MV VMax94.3 cm/s TDI Lateral E' P. V10.18 cm/s E/Lateral E' 8.2 Tricuspid Valve TR P. Velocity 204 cm/s RAP ESTIMATE 10 mmHg TR Peak Gr. 17 mmHg RVSP 27 mmHg LEFT VENTRICLE Normal LV size and wall thickness. Overall systolic function is normal. LVEF is 70-75%. RIGHT VENTRICLE Right ventricle is mildly dilated with adequate function. ATRIA The left atrium size is normal. AORTIC VALVE Trileaflet AV appears mildly sclerotic without stenosis. No insufficiency. MITRAL VALVE Mild mitral annular calcification without stenosis. Trace regurgitation. TRICUSPID VALVE The tricuspid valve is normal in structure with trace regurgitation. PULMONIC VALVE Pulmonic valve is grossly normal in structure without insufficiency. GREAT VESSELS The aortic root is normal in size. The ascending aorta is normal in size. The IVC is normal in size a nd collapses >50% with inspiration. PERICARDIUM Normal pericardium. No effusion. Anterior epicardial fat pad is present. Other Information Study Quality: Fair due to body habitus Conclusion Normal LV size and wall thickness. Overall systolic function is normal. LVEF is 70-75%. Right ventricle is mildly dilated with adequate function. The left atrium size is normal. Trileaflet AV appears mildly sclerotic without stenosis. No insufficiency. Mild mitral annular calcification without stenosis. Trace regurgitation. The tricuspid valve is normal in structure with trace regurgitation. Normal pericardium. No effusion. Anterior epicardial fat pad is present.
[2025-01-04] MEDS: prazosin 1mg capsule PO SCH (20:19)
[2025-01-04] MEDS: atorvastatin 20mg tablet PO SCH (20:20)
[2025-01-04] MEDS: divalproex sod 250mg ER (24-hour) tablet PO SCH (20:22)
[2025-01-04] MEDS: insulin glargine (Lantus) pen - multi-dose SQ SCH (21:00)
[2025-01-04] MEDS: traZODone 50mg tablet PO ONE (22:48)
[2025-01-05 06:00] VITALS: BP 90/75; PULSE 63; RESP 16; TEMP 97.5; O2SAT 95
[2025-01-05 06:06] LABS: BASOPHILS % (AUTO) 0.5 % (0-1); EOSINOPHILS % (AUTO) 0.8 % (0-6); HEMATOCRIT 41.6 % (35.0-45.0); HEMOGLOBIN 14.1 g/dl (12.0-16.0); LYMPHOCYTES # (AUTO) 1.9 X10'3 (1.1-4.8); LYMPHOCYTES % (AUTO) 51.3 % (21-51); MEAN CORPUSCULAR HEMOGLOBIN 30.3 PG (27.0-31.0); MEAN CORPUSCULAR HGB CONC 33.9 g/dL (33.0-36.5); MEAN CORPUSCULAR VOLUME 89.6 FL (78-98); MEAN PLATELET VOLUME 7.4 FL (7.4-10.4); MONOCYTES # (AUTO) 0.5 X10'3 (0-0.9); MONOCYTES % (AUTO) 12.6 % (2-12); NEUTROPHILS # (AUTO) 1.3 X10'3 (1.8-7.7); NEUTROPHILS % (AUTO) 34.8 % (42-75); PLATELET COUNT 136 X10'3 (140-440); RED BLOOD COUNT 4.64 X10'6 (4.20-5.60); RED CELL DISTRIBUTION WIDTH 15.6 % (11.5-14.5); WHITE BLOOD COUNT 3.7 X10'3 (4.5-11.0)
[2025-01-05 06:21] LABS: ALBUMIN 2.6 G/DL (3.4-5.0); ANION GAP 5 (8-16); BLOOD UREA NITROGEN 11 MG/DL (7-18); BUN/CREATININE RATIO 11.5 (10.0-20.0); CALCIUM 8.1 MG/DL (8.5-10.1); CHLORIDE 109 MMOL/L (99-107); CHOLESTEROL 126 MG/DL (0-200); CREATININE 0.96 MG/DL (0.40-0.90); GLUCOSE 141 MG/DL (70-104); HDL CHOLESTEROL 30 MG/DL (35-60); MAGNESIUM 1.9 MG/DL (1.5-2.4); POTASSIUM 3.5 MMOL/L (3.5-5.1); SODIUM 142 MMOL/L (135-145); TOTAL CARBON DIOXIDE 27.6 MMOL/L (24-32); eCRCL 61 ML/MIN; eGFR 61 ML/MIN
[2025-01-05 06:22] LABS: CHOL/HDL RATIO 4.2 (0.00-4.99); LDL CHOLESTEROL 64 MG/DL (50-100); TRIGLYCERIDES 185 MG/DL (20-135)
[2025-01-05 08:14] LABS: HBSAG SCREEN Negative (Negative); HEP B CORE AB, IGM Negative (Negative); HEP B CORE AB, TOT Negative (Negative)
[2025-01-05] MEDS ORDERED: ziprasidone 20mg capsule PO SCH (08:31)
[2025-01-05] MEDS: ziprasidone 20mg capsule PO SCH (08:43)
[2025-01-05 09:29] VITALS: RESP 18; O2SAT 97
[2025-01-05 10:00] VITALS: BP 103/56; PULSE 66; RESP 16; TEMP 97.7; O2SAT 93
--- NOTE | 2025-01-05 14:12 | DISCHARGE SUMMARY ---
Discharge Summary Providers to ~ Discharge Summary Admission Diagnosis: Acute Gastroenteritis Hospital Course DATE OF ADMISSION: 01/04/2025 DATE OF DISCHARGE: 01/05/2025 Discharge Diagnosis\Comment: Gastroenteritis diabetes hypertension hyperlipidemia morbid obesity restless leg syndrome Operations\Procedures: None Consultants: None Complications: None Condition on DC: Stable Continued Medications: Baclofen (Baclofen) 20 Mg Tablet 1 TAB PO TID PRN for pain Divalproex ER* (Depakote ER*) 500 Mg Tab.sr.24h 3 TAB PO HS Empagliflozin (Jardiance) 25 Mg Tablet 1 TAB PO QAM Ergocalciferol (Vitamin D2) (Vitamin D2) 1,250 Mcg Capsule 1 CAP PO Q7D ON SATURDAYS Famotidine (Famotidine) 20 Mg Tablet 1 TAB PO DAILY, TAB 0 Refills Metformin HCl (Metformin HCl) 1,000 Mg Tablet 1 TAB PO Q12H for 30 Days, #60 TAB Nystatin (NYSTOP powder) 100,000 Unit/Gram Gra 1 APPLIC TP TID for 30 Days, #1 BOT ONDANSETRON ODT 4mg tablet (Ondansetron Odt) 4 Mg Tab.rapdis 1 TAB PO Q6H PRN PRN for nausea/vomiting for 4 Days, #16 TAB 0 Refills Prazosin Hcl (Prazosin Hcl) 2 Mg Capsule 1 CAP PO HS, CAP 0 Refills Rosuvastatin Calcium* (Crestor*) 20 Mg Tablet 1 TAB PO HS for 30 Days, #30 TAB Topiramate (Topiramate) 50 Mg Tablet 2 TAB PO Q12H for 30 Days, #60 TAB 0 Refills Trazodone HCl (Trazodone HCl) 100 Mg Tablet 2 TAB PO HS, #28 TAB 0 Refills Venlafaxine HCl (Effexor Xr) 150 Mg Cap.er.24h 1 CAP PO DAILY for 30 Days, #30 CAP 0 Refills Venlafaxine HCl (Venlafaxine HCl ER) 75 Mg Tab.er.24 1 TAB PO DAILY for 14 Days, #14 TAB 0 Refills Ziprasidone Hcl (Ziprasidone Hcl) 40 Mg Capsule 1 CAP PO QAM Ziprasidone Hcl (Ziprasidone Hcl) 80 Mg Capsule 2 CAP PO HS Discharge Summary: History of Present Illness A 54-year-old female past medical history of diabetes mellitus type 2 and bipolar disorder presented to the ED with complaints of multiple episodes of vomitings and diarrhea over the last 2-3 days. Patient states that she has nausea and vomitings with watery vomitus and watery diarrhea. Patient also endorses abdominal pain which is sharp in character that is generalized with no radiation or no aggravating or relieving factors with a severity scale is 10/10. Patient endorses decreased appetite, similar symptoms that resolved in the family. Patient has associated chills but denies fever, travel or consumption of outside food, burning micturition or bloody diarrhea. Physical exam Patient is alert and oriented x3 no acute distress lying down comfortably speaking in full sentences HEENT normocephalic nontraumatic head PERRLA. EOMI. CVS first and second heart sounds are regular rate rhythm no murmurs gallops or rubs Respiratory system is clear to auscultate bilaterally no rales rhonchi crackles or wheezing Abdomen is soft bowel sounds are positive nontender nondistended Extremities no clubbing cyanosis or edema Neurological exam no focal Deficits Hospital course patient is a 54-year-old with a longstanding history of diabetes hypertension hyperlipidemia morbid obesity and drug abuse. Patient was admitted secondary to severe nausea vomiting and diarrhea and abdominal pain this is all resolved spontaneously this was probably a viral infection. She was given IV antibiotics with Cipro and Flagyl. I have discharging her home on no antibiotics. She is advised to advance her diet slowly and monitor her diabetes high blood pressure follow up with her PCP in a week. *Problems/Diagnosis: (1) Viral syndrome Status: Acute (2) Type 2 diabetes mellitus (3) Morbid obesity (4) Acute gastroenteritis Status: Acute Total Time Spent on D/C: > 30 Minutes Date of Service: Jan 05, 2025 Billing Provider: YINKA ALMODOVAR MD Common Visit Codes: 08748-FMQ/OBS DISCH DAY >30min YINKA ALMODOVAR MD Jan 05, 2025 14:12
[2025-01-05] MEDS ORDERED: ONDA-245 PO (14:14)
[2025-01-05] MEDS ORDERED: LOPE-190 PO (14:14)
== END 2025-01-05 15:26 | disposition home or self-care (01) | DRG 249 ==
LOC: ER 17:34 → ED HOLD 01-04 00:12 → SUR 3N 01-04 02:10
PROVIDERS: ADMIT Internal Medicine Critical Care Medicine; ATTEND Internal Medicine
PROC: BW211ZZ Computerized Tomography (CT Scan) of Abdomen and Pelvis using Low Osmolar Contrast (ICD-10-PCS; principal; 2025-01-03)
DX: K52.9 Noninfective gastroenteritis and colitis, unspecified (principal); E11.9 Type 2 diabetes mellitus without complications; I10 Essential (primary) hypertension; F31.9 Bipolar disorder, unspecified; E66.01 Morbid (severe) obesity due to excess calories; I25.10 Atherosclerotic heart disease of native coronary artery without angina pectoris; J45.909 Unspecified asthma, uncomplicated; F20.9 Schizophrenia, unspecified; G25.81 Restless legs syndrome; E78.5 Hyperlipidemia, unspecified; Z88.6 Allergy status to analgesic agent; Z79.899 Other long term (current) drug therapy; Z79.84 Long term (current) use of oral hypoglycemic drugs
CPT/HCPCS: 36415; 74176; 80048; 80053; 80061; 80305; 81001; 81025; 82948; 83036; 83605; 83690; 83735; 84132; 84145; 85025; 86704; 86705; 87040; 87081; 87088; 87340; 93306; 94640; 94760; 96361; 96374; 96375; 97116; 97161; 99285; A6258; G0378; J0744; J1200; J1630; J1815; J2270; J2405; J2765; J3490; J7030

== ENCOUNTER 2025-03-11 05:25 | Day surgery (SDC) | payer MEDICAID ==
--- NOTE | 2025-03-08 13:07 | ELECTROCARDIOGRAPH REPORT ---
[facility] Test Date: 2025-03-08 Test Time: 13:05:01 Pat Name: SERGEY GRIGGS Department: PSYCHIATRIC-PRE-OP Room: Gender: F Controls Technician: robbie : 1970 Requested By: SHYAM PALM Order Number: [id number] Reading MD: Dr. EVERTON Simental Measurements Intervals [place] Rate: 69 P: 70 HI: 172 QRS: -62 QRSD: 105 T: 55 QT: 422 QTc: 452 Interpretive Statements Sinus rhythm Left anterior fascicular block Electronically Signed On 03-08-2025 15:19:[address] EVERTON Simental Please click the below link to view image of tracing.
[2025-03-08 13:25] LABS: MEAN PLATELET VOLUME 7.4 FL (7.4-10.4); PRE OP HEMATOCRIT 46.0 % (35.0-45.0); PRE OP HEMOGLOBIN 15.4 g/dL (12.0-16.0); PRE OP PLATELET COUNT 202 X10'3 (140-440); PRE OP WHITE BLOOD COUNT 7.9 10'3 (4.8-10.8); RED CELL DISTRIBUTION WIDTH 15.0 % (11.5-14.5)
[2025-03-08 13:39] LABS: CREATININE 0.90 MG/DL (0.40-0.90); PRE OP ALT 12 U/L (30-65); PRE OP ANION GAP 6 (8-16); PRE OP AST 7 U/L (10-37); PRE OP BILIRUB, TOTAL 0.2 MG/DL (0.0-1.0); PRE OP GLUCOSE 123 MG/DL (70-104); PRE OP POTASSIUM 4.0 MMOL/L (3.4-5.1); PRE OP SODIUM 144 MMOL/L (135-145); TOTAL CARBON DIOXIDE 30.3 MMOL/L (24-32); eGFR 65 ML/MIN
[~2025-03-11] VITALS: Ht 165.1 cm; Wt 102.7 kg
[~2025-03-11 05:25] MED LIST changes: +HYDR-3686 PO; +INSU100I29 SQ; -NYSPWD TP; -ONDA-243 PO
[2025-03-11 05:40] VITALS: BP 113/67; PULSE 74; RESP 16; TEMP 98.1; O2SAT 94
[2025-03-11] MEDS: ringers solution, lacted 1,000 ML IV SCH (06:11)
[2025-03-11] MEDS: ceFAZolin 2gm/dext,iso 50mL 50 ML IV ONE (06:11)
[2025-03-11] MEDS ORDERED: BUPIVAcaine/PF 2.5mg/ml (0.25%) 10ml vial ONE (06:47)
[2025-03-11] MEDS ORDERED: LIDOcaine 2% (20mg/ml) 5ml vial ONE ×2 (06:47→06:48)
[2025-03-11] MEDS ORDERED: fentaNYL/PF 50MCG/1 ML 2ML syringe ONE (07:21)
[2025-03-11] MEDS ORDERED: propofol inj 20 ML IV ONE (07:22)
[2025-03-11 07:41] VITALS: BP 80/55; PULSE 54; RESP 14; O2SAT 93
[2025-03-11 07:50] VITALS: BP 100/46; PULSE 90; RESP 18; O2SAT 98
[2025-03-11] MEDS ORDERED: morphine 4 MG/ML inj SYRINge IV PRN (07:55)
[2025-03-11] MEDS ORDERED: HYDROmorphone/PF 0.2 MG/ML SYRINGE IV PRN ×2 (07:55)
[2025-03-11] MEDS ORDERED: acetaminophen 1,000mg/100ml IV 100 ML IV PRN (07:55)
[2025-03-11] MEDS ORDERED: ringers solution, lacted 1,000 ML IV SCH (07:55)
[2025-03-11] MEDS ORDERED: ondansetron/PF 4mg/2ml inj IV PRN (07:55)
[2025-03-11 08:00] VITALS: BP 128/67; PULSE 60; RESP 25; O2SAT 98
[2025-03-11 08:10] VITALS: BP 94/61; PULSE 62; RESP 14; O2SAT 99
[2025-03-11 08:20] VITALS: BP 118/68; PULSE 64; RESP 12; O2SAT 98
--- NOTE | 2025-03-11 10:58 | OPERATIVE REPORT ---
Operative Report Providers to ~ Date of Procedure: Mar 11, 2025 Pre-Operative Diagnosis: Right wrist carpal tunnel syndrome Post-Operative Diagnosis SAME as PRE-Op Procedure Performed Right wrist endoscopic carpal tunnel release Surgeon: Connor Cuellar MD Wire Weaving Loom Setter None Anesthesiologist: Franklin Coe Type of Anesthesia: Other Findings: n/a Complications None Prosthetics\Implants used: None Estimated Blood Loss: None Specimen Removed: None Description of Procedure: The patient is a 54-year-old woman with a carpal tunnel syndrome refractory to nonsurgical treatment. Surgery is indicated to relieve symptoms. Risks and benefits were discussed with the patient and she agreed to proceed. She was brought to the operating room where the arm was prepped and draped in usual manner. A mixture of Marcaine lidocaine was infiltrated proximal to the planned incision site on the volar distal forearm. A transverse incision was made at the wrist crease ulnar to palmaris longus after the tourniquet was raised on the forearm. Flap was elevated and the scope was placed in the carpal canal in line with the ring finger. The cutting blade was deployed up against the underside of the ligament and the scope drawn proximally, dividing the ligament. The scope was removed and the flap was transected. The forearm fascia proximal to the incision was divided a short distance using the blunt scissor tips the incision was irrigated and closed with nylon suture and a sterile dressing was then applied. The tourniquet was released and the hand perfused well. She was taken to the recovery room in stable condition and tolerated the procedure well. CONNOR CUELLAR Jr., MD Mar 11, 2025 10:58
== END 2025-03-11 08:26 | disposition home or self-care (01) ==
LOC: PAS 05:25
PROVIDERS: ATTEND Orthopaedic Surgery Hand Surgery
DX: G56.01 Carpal tunnel syndrome, right upper limb (principal); I44.4 Left anterior fascicular block; F31.9 Bipolar disorder, unspecified; E11.9 Type 2 diabetes mellitus without complications; J44.9 Chronic obstructive pulmonary disease, unspecified; Z79.899 Other long term (current) drug therapy; Z87.442 Personal history of urinary calculi; F41.9 Anxiety disorder, unspecified; G47.00 Insomnia, unspecified; F41.1 Generalized anxiety disorder; Z98.890 Other specified postprocedural states; Z87.891 Personal history of nicotine dependence
CPT/HCPCS: 29848; 36415; 80053; 82948; 85025; 93005; J2003; J2704; J3010; J3490; J7030; J7120; Z7506; Z7512; A4215; A6449; A7000

== ENCOUNTER 2025-05-13 05:56 | Emergency (ER) | payer MEDICAID ==
[~2025-05-13] VITALS: Ht 165.1 cm; Wt 100.1 kg
[2025-05-13 06:01] VITALS: TEMP 97.8
--- NOTE | 2025-05-13 06:30 | Physician Documentation ---
History of Present Illness ~ Chief Complaint: Back Pain Stated Complaint: LOWER BACK PAIN Time Seen by MD: 06:27 OK to notify your PCP?: Yes Primary Medical Doctor: Dr. Cain. Source: patient, RN/MD, RN notes reviewed, old records Mode of Arrival: POV Exam Limitations: no limitations HPI This patient has been coughing lately and then started developing some low back pain. It is on the right lower hip area nonradiating. She states it is it is a sharp pain. Movement does not make it worse. She states it has been going on for three days has not changed location. She states it is not the same as her regular back pain. She states that this feels like kidney stones because her kidney stones are sharp pains her back pain is usually an ache. She denies any hematuria. She denies any trauma. The quality and location of the pain has not changed in the last three days. She takes baclofen for chronic back pain. She has a history of GI bleeds and does not take anti-inflammatories. She is now here for evaluation. Medication Reconciliation Allergies: Coded Allergies: ibuprofen (Unverified Allergy, Severe, INTERNAL BLEEDING, 03/08/25) morphine (Verified Adverse Reaction, Mild, ITCHINESS, SOLVED WITH BENADRYL ADMINISTRATION, 05/13/25) Scheduled Divalproex ER* (Depakote ER*), 3 TAB PO HS, (Reported) Empagliflozin (Jardiance), 1 TAB PO QAM, (Reported) Ergocalciferol (Vitamin D2) (Vitamin D2), 1 CAP PO Q7D, (Reported) Famotidine (Famotidine), 1 TAB PO DAILY, (Reported) Hydroxyzine Hcl* (Atarax*), 1 TAB PO Q8H, (Reported) Metformin HCl (Metformin HCl), 1 TAB PO Q12H, (Reported) Prazosin Hcl (Prazosin Hcl), 1 CAP PO HS, (Reported) Rosuvastatin Calcium* (Crestor*), 1 TAB PO HS, (Reported) Topiramate (Topiramate), 2 TAB PO Q12H, (Reported) Trazodone HCl (Trazodone HCl), 1 TAB PO HS, (Reported) Venlafaxine HCl (Effexor Xr), 1 CAP PO DAILY, (Reported) Venlafaxine HCl (Venlafaxine HCl ER), 1 TAB PO DAILY, (Reported) Ziprasidone Hcl (Ziprasidone Hcl), 1 CAP PO QAM, (Reported) Ziprasidone Hcl (Ziprasidone Hcl), 2 CAP PO HS, (Reported) Scheduled PRN Baclofen (Baclofen), 1 TAB PO TID PRN for pain, (Reported) Miscellaneous Medications Insulin Degludec (Tresiba Flextouch U-100), SQ, (Reported) Past Medical History Past Medical History: Seizures, Hypertension, Asthma, Diabetes, Bipolar, Depression, Schizophrenia Past Surgical History: noncontributory Patient History: FH: cardiovascular disease FAMILY/OTHER, Name: Brother FH: emphysema FATHER, , Cause: Diabetes GRANDFATHER OR GRANDMOTHER FH: heart disease Brother FH: peptic ulcer GRANDFATHER OR GRANDMOTHER GRANDFATHER OR GRANDMOTHER Brother FHx: schizophrenia MOTHER Alcohol Use: Sober Drug Use: marijuana Lives with: Family Lives In: Home Review of Systems All Other Systems at this time: Reviewed and Negative Physical Exam Physical Exam Vital Signs: RN Vital Signs have been reviewed: Yes, Temperature: 97.8, Source: Oral, Heart Rate: 84, Respiratory Rate: 18, BP: 108/71, Pulse Oximetry: 97, Weight: 100.100 Physical Exam General: The patient is well developed, well nourished, nontoxic appearing and is in mild acute distress. Tearful Skin: [place], warm and dry with no rashes. HEENT: Head was normocephalic and atraumatic. Eyes - pupils equal, round, reactive to light and accommodation. Extraocular movements were intact. Conjunctivae were nonicteric. The mouth and oropharynx were clear with moist mucous membranes. There were no pharyngeal exudates or erythema. Neck: Supple and nontender. There was no jugular venous distention, lymphadenopathy, thyromegaly or masses. Chest: Clear to auscultation bilaterally without wheezes, rales or rhonchi. No accessory muscle use. No dullness to percussion. Heart: Rate regular and rhythmic. S1, S2. No murmurs. Palpation of the chest wall was normal. No rubs or thrills. Abdomen: Soft, nontender and nondistended. Positive bowel sounds. No guarding or rebound. No hepatosplenomegaly or palpable masses. Back: Straight leg test is positive 45. Pain at S1 right paraspinal tenderness, no CVA tenderness Extremities: No cyanosis, clubbing or edema. The patient moves all extremities. Pulses were equal and symmetric. Neurologic: Motor sensory grossly intact Psychologic: The patient was oriented to person, place and time. The patient demonstrated appropriate judgement and insight. Progress Results/Orders Reviewed/noted all lab results: Yes Results/Orders Orders - EMILY PRIEST MD Normal Saline 1000ml (0.9% Sodium Chlori (05/13/25 06:30) Morphine 2mg/Ml Inj. (Morphine Inj.) (05/13/25 07:49) Ceftriaxone/T1h-Rerccwlz 1gm (Rocephin 1 (05/13/25 08:25) Completed Orders - EMILY PRIEST MD Cbc/Diff (05/13/25 06:27) Lipase (05/13/25 06:27) Ketorolac Trometh 30mg/Ml Vial (Toradol (05/13/25 06:30) Morphine 2mg/Ml Inj. (Morphine Inj.) (05/13/25 06:30) Normal Saline 1000ml (0.9% Sodium Chlori (05/13/25 06:30) BMP (05/13/25 06:27) Diphenhydramine Inj (Benadryl Inj.) (05/13/25 07:10) Ondansetron Inj. (Zofran 4mg/2ml Vial) (05/13/25 07:20) Morphine 4mg/Ml Inj. (Morphine Inj.) (05/13/25 07:39) Fosfomycin Tromethamine Packet (Monurol (05/13/25 08:25) Medications Received in ER Medications (Trade) Dose Ordered Sig/Dante Route PRN Reason Start Time Stop Time Status Last Admin Dose Admin (Toradol inj. 30mg/ml) 30 mg ONCE ONCE IV 05/13/25 06:30 05/13/25 06:31 DC 05/13/25 07:30 30 MG (0.9% sodium chloride (NS) 1000ml IV soln) 1,000 ml ONCE ONCE IVB 05/13/25 06:30 05/13/25 06:31 DC 05/13/25 07:31 1,000 ML Sodium Chloride 1,000 ml @ 200 mls/hr Q5H ONCE IV 05/13/25 06:30 05/13/25 11:29 05/13/25 07:49 200 MLS/HR (Benadryl inj.) 25 mg ONCE ONCE IV 05/13/25 07:10 05/13/25 07:11 DC 05/13/25 07:48 25 MG (Zofran 4mg/2ml vial) 4 mg ONCE ONCE IV 05/13/25 07:20 05/13/25 07:24 DC 05/13/25 07:29 4 MG (morphine inj.) 2 mg Q5M PRN IV moderate to severe pain 4-10 05/13/25 07:49 05/13/25 07:46 2 MG Vital Signs 05/13/25 05/13/25 05/13/25 05/13/25 06:01 07:21 07:21 07:30 Temp 97.8 Pulse 84 73 Resp 18 16 16 16 B/P (MAP) 108/71 122/82 (95) Pulse Ox 97 97 O2 Flow Rate 0 05/13/25 07:46 Resp 11 Laboratory Tests Test 05/13/25 06:50 05/13/25 07:02 White Blood Count 7.9 Red Blood Count 5.21 Hemoglobin 15.8 Hematocrit 47.6 H Mean Corpuscular Volume 91.3 Mean Corpuscular Hemoglobin 30.3 Mean Corpuscular Hemoglobin Concent 33.2 Red Cell Distribution Width 14.6 H Platelet Count 182 Mean Platelet Volume 8.1 Neutrophils (%) (Auto) 52.9 Lymphocytes (%) (Auto) 37.8 Monocytes (%) (Auto) 7.1 Eosinophils (%) (Auto) 1.7 Basophils (%) (Auto) 0.5 Neutrophils # (Auto) 4.2 Lymphocytes # (Auto) 3.0 Monocytes # (Auto) 0.6 Eosinophils # (Auto) 0.1 Basophils # (Auto) 0.0 CBC Comment Sodium Level 143 Potassium Level 4.1 Chloride Level 108 H Carbon Dioxide Level 28.7 Anion Gap 6 L Blood Urea Nitrogen 9 Creatinine 0.89 Estimated GFR/1.73 m2 66 BUN/Creatinine Ratio 10.1 Glucose Level 108 H Calcium Level 8.3 L Albumin 2.8 L Lipase 28 Chemistry Comments Urine Specimen Description Cln catch midstream Urine Color Yellow Urine Clarity Clear Urine pH 6.0 Urine Specific [place] 1.020 Urine Protein Negative Urine Glucose (UA) >=1000 H Urine Ketones Negative Urine Occult Blood Trace-intact Urine Nitrite Negative Urine Bilirubin Negative Urine Urobilinogen 0.2 Urine Leukocyte Esterase Small H Urine RBC 0-2 Urine WBC 10-20 H Urine Squamous Epithelial Cells Moderate Urine Bacteria 1+ Urine Mucus None seen Urine Culture Indicated Indicated Volume Urine Centrifuged 10 ml Urine HCG, Qualitative Negative Urine Comment Re-Evaluation Re-Evaluation : Re-Evaluation: Improved Progress Patient was seen and examined. Patient is given reassurance. Patient was found to have pain with movements also her pain seems to be paraspinal. Patient received fluids laboratory work was obtained given anti-inflammatories and pain medications with Benadryl because she itches and has allergies. Patient was worked up. Patient received additional medications. Ears questionable urinary tract like infections diagnosis. Patient had some gluco suria in the urinalysis small leukocyte esterase with 10-20 WBCs somewhat suggestive of an infection. There was 1+ bacteria as well but there was also moderate squamous epithelial cells not the best urinalysis. RBCs are negative dash 2 making renal colic highly unlikely. Her symptoms sounded more musculoskeletal. Patient received anti-inflammatories also received pain medications we will see if additional pain medications. Patient was hydrated 2 L. Finally the patient was given fosfomycin which will treat a urinary tract infection but also was given Rocephin as well. Otherwise chemistries reassuring and within normal limits. CBC is also within normal limits without any leukocytosis. It was then discharged home to follow up with primary care physician and to continue with her home medications. Medical Decision Making Additional information obtaine: old records Findings Renal colic versus musculoskeletal back pain pinched nerves, UTI infectious et iology unlikely. Differential Dx:Considerations: Fracture, Musculoskeletal pain, Pancreatitis, Pyelonephritis, Strain, Urinary obstruction, Urolithiasis, Urinary tract infection, Other Departure Disposition: HOME / SELF CARE / HOMELESS Impression: Primary Impression: Low back pain Qualified Codes: M54.50 - Low back pain, unspecified Additional Impression: UTI (urinary tract infection) Qualified Codes: N30.00 - Acute cystitis without hematuria Condition: Stable Discharge Instructions: Chronic Back Pain Referrals: NO PRIMARY CARE PROVIDER (PCP) Education Educated: Patient Educated regarding: diagnosis, need for follow up Signature Scribe Signature: No scribed Attestation: The note accurately reflects work and decisions made by me.Emily Priest MD 05/13/25 06:30 EMILY PRIEST MD May 13, 2025 06:30
[2025-05-13 07:21] LABS: CREATININE 0.89 MG/DL (0.40-0.90); TOTAL CARBON DIOXIDE 28.7 MMOL/L (24-32); eCRCL 66 ML/MIN; eGFR 66 ML/MIN
[2025-05-13 07:25] LABS: MEAN PLATELET VOLUME 8.1 FL (7.4-10.4); RED CELL DISTRIBUTION WIDTH 14.6 % (11.5-14.5)
[2025-05-13] MEDS: ondansetron/PF 4mg/2ml inj IV ONE (07:29)
[2025-05-13] MEDS: ketorolac trometh 30MG/ML vial 30 MG/ML VIAL IV ONE (07:30)
[2025-05-13 07:31] LABS: LEUKOCYTE ESTERASE ,URINE SMALL (Neg); NITRITES, URINE NEGATIVE (Neg); OCCULT BLOOD,URINE TRACE-INTACT (Neg)
[2025-05-13] MEDS: normal saline 1000ML IV soln IVB ONE (07:31)
[2025-05-13 07:32] LABS: URINE HCG NEGATIVE (NEG)
[2025-05-13] MEDS ORDERED: morphine 4 MG/ML inj SYRINge IV PRN (07:39)
[2025-05-13 07:44] LABS: UA COLLECTION TYPE CLN CATCH MIDSTREAM
[2025-05-13 07:49] LABS: SQUAMOUS EPITHELIAL CELL,UR MODERATE /LPF (FEW)
[2025-05-13] MEDS: normal saline 1000ml 1,000 ML IV ONE (07:49)
[2025-05-13 07:50] LABS: MUCUS STRANDS NONE SEEN /LPF (Neg)
[2025-05-13] MEDS: CefTRIAXone/D5W-Rocephin 1gm 50 ML IV ONE (09:41)
[2025-05-13] MEDS: FOSFOMYCIN TROMETHAMINE 3 GM PACKET PO ONE (09:46)
[2025-05-13] MEDS ORDERED: ALBU8HFA INH (09:59)
[2025-05-13] MEDS: dexamethasone sod phosphate 10mg/ml inj IV STA (10:04)
[2025-05-13] MEDS: ipratropium/albuterol 3ml nebule NEB ONE (10:17)
[2025-05-13 10:20] VITALS: PULSE 71; RESP 18; O2SAT 96
[2025-05-13 10:27] VITALS: PULSE 76; RESP 20; O2SAT 96
[2025-05-13 10:35] VITALS: BP 102/70; PULSE 64; RESP 20; O2SAT 94
== END 2025-05-13 10:42 | disposition home or self-care (01) ==
LOC: ER 05:57
DX: N39.0 Urinary tract infection, site not specified (principal); M54.50 Low back pain, unspecified; E11.9 Type 2 diabetes mellitus without complications; F20.9 Schizophrenia, unspecified; F31.9 Bipolar disorder, unspecified; G89.29 Other chronic pain; I10 Essential (primary) hypertension; J45.909 Unspecified asthma, uncomplicated; F12.90 Cannabis use, unspecified, uncomplicated; Z88.5 Allergy status to narcotic agent; Z88.6 Allergy status to analgesic agent; Z79.899 Other long term (current) drug therapy; Z79.84 Long term (current) use of oral hypoglycemic drugs
CPT/HCPCS: 36415; 80048; 81001; 81025; 83690; 85025; 87088; 94640; 96361; 96374; 96375; 99285; J0696; J1100; J1200; J1885; J2270; J2405; J7030; 94760